=== PATIENT | female | born 1975 | race Caucasian/White ===

== ENCOUNTER 2017-11-19 13:58 | Observation (INO) ==
--- NOTE | 2017-11-19 14:26 | Emergency Department Note ---
ED Disposition Clinical Impression: Overweight Chest pain Qualifiers: Chest pain type: precordial pain Qualified Code(s): R07.2 - Precordial pain Disposition: Admitted as Observation Condition on Discharge: Good - Critical Care Critical Care Time: No Attestation: On 11/19/17, the high probability of a clinically significant, sudden or life threatening deterioration of the following system(s) required my full and direct attention, intervention and personal management. The time I documented below is in addition to time spent performing reported procedures but includes the following listed in this critical care notation. Medical Decision Making - Medical Records Medical records reviewed: Yes: I reviewed the patient's medical records. - Mickey Inquiry Pt receiving controlled substance: No Vital Signs: 11/19/17 13:58 Temperature 97.7 F Temperature Source Oral Pulse Rate [Right Brachial] 69 Respiratory Rate 20 Blood Pressure [Right Arm] 107/49 Blood Pressure Mean [Right Arm] 68 Blood Pressure Source [Right Arm] Automatic Cuff Blood Pressure Position [Right Arm] Sitting 02 Sat by Pulse Oximetry 95 Oxygen Delivery Method Room Air - Lab Data Lab results reviewed: Yes: I reviewed the patient's lab results. Lab Results 11/19/17 14:06: WBC 10.6, RBC 4.26, Hgb 13.9, Hct 36.7 L, MCV 86.3, MCH 32.7 H, MCHC 37.9 H, RDW 14.0, Plt Count 217, MPV 8.3, Neut % (Auto) 68.2, Lymph % (Auto ) 25.6, [place] % (Auto) 4.1, Eos % (Auto) 1.7, Baso % (Auto) 0.4, Neut # (Auto) 7.2, Lymph # (Auto) 2.7, [place] # (Auto) 0.4, Eos # (Auto) 0.2, Baso # (Auto) 0.0 11/19/17 14:06: Sodium 139, Potassium 3.9, Chloride 104, Carbon Dioxide 27, Anion Gap 11.9, BUN 12, Creatinine 0.74, Estimated Creat Clear 73, Estimated GFR 87, Est GFR ( Amer) 105, Glucose 88, Calcium 8.2 L, Troponin I < 0.02 Result diagrams: 11/19/17 14:06 11/19/17 14:06 - Radiology Data #1 Image(s): Chest Image Reviewed: Yes I reviewed the patient's radiology image Preliminary Findings: Normal/NAD - ECG Data Tracing #1 I reviewed this ECG and interpreted as documented below: Normal Sinus Rhythm: Yes Ischemic changes: non-specific ST-T wave changes - Physician Consults Physician Consulted: lacy Reason -: Admission Chest Pain HPI - General Chief Complaint: Chest Pain Stated Complaint: chest pain Time Seen by Provider: 11/19/17 14:00 Mode of Arrival: EMS Source of Information: Patient, Significant Other, EMS, Medical Record Limitations: No Limitations Description of Symptoms (Recalled from ER Triage Doc. by RN): Pt reports midsternal chest pain that began approx 1 hour UTILITY HAND. Pt reports became diaphoretic and nausea after pain began. Pt describes pain as feeling like a pressure in middle of her chest. Pt reports she has an appointment tomorrow to see her PCP r/t feeling tired and not having any energy recently - History of Present Illness HPI narrative: acute onset of chest tightness with rad to neck lasted for 1 hr and was new pain - had gxt about yr ago - pt with nausea and diaphoresis - brought by ems MD complaint: chest pain indicative of cardiac Onset (ago): hour(s) Duration: now resolved Activity at onset: during rest Pain location: epigastric Severity: moderate Quality: tightness Pain radiation: neck Associated symptoms: nausea, diaphoresis Risk Factors for CAD: Hypertension, Hypercholesterolemia, Family Hx of CAD, Smoking Treatments prior to or on arrival for Cardiac Chest Pain: aspirin - MORALES Score Non-Stemi Age of patient: Less than 65 yrs Number of risk factors for CAD: Presence of 3 or more Prior coronary artery stenosis(seen in coronary angiography): Less than 50% ST-Segment deviation on ECG (more than 1 min): Absent Prior aspirin intake: No ASA in the last 7 days Severe anginal chest pain: Two or more episodes in last 24 hours Elevated cardiac markers(CK-MB or troponin): Absent Non-Stemi Risk Score: 2 - Related Data Prior Cardiac Testing/Procedures: Stress Test On Oral Contraceptives: No Home Medications Medication Instructions Recorded Confirmed Atorvastatin Calcium [Atorvastatin 40 mg PO DAILY 11/19/17 11/19/17 40mg Tab] Cetirizine HCl [Allergy Relief] 10 mg PO DAILY 11/19/17 11/19/17 Divalproex Sodium 125 mg PO DAILY 11/19/17 11/19/17 Meloxicam 7.5 mg PO DAILY 11/19/17 11/19/17 Montelukast Sodium [Singulair 10mg 10 mg PO PM 11/19/17 11/19/17 tablet] clonazePAM [Klonopin 0.5mg tablet] 0.5 mg PO DAILY 11/19/17 11/19/17 risperiDONE [Risperidone] 0.5 mg PO DAILY 11/19/17 11/19/17 Allergies Allergy/AdvReac Type Severity Reaction Status Date / Time varenicline [From CHANTIX] Allergy Unknown Verified 11/19/17 14:03 [facility] History I have reviewed the patient's past medical history: Yes ROS Obtained: Yes All systems reviewed & no additional complaints - Constitutional Constitutional: Denies fever(s) - Eyes Eyes: Denies change in vision - ENT Ears, Nose, Mouth, and Throat: Denies sore throat - Cardiovascular Cardiovascular: Reports chest pain, Reports lightheadedness - Respiratory Respiratory: No cough - Gastrointestinal Gastrointestingal: Denies: abdominal pain - Genitourinary Female Genitourinary: Denies hematuria - Musculoskeletal Musculoskeletal: Denies joint pain, Denies joint swelling - Integumentary/Breasts Skin/Breast: Denies rash - Neurologic Neurologic: Denies seizure-like activity Physical Exam - General General appearance: alert, obese - Head Head exam: normocephalic - Eye Eye exam: Present: PERRL, EOMI - ENT ENT exam: Present: mucous membranes moist - Neck Neck exam: Present: trachea midline - Respiratory Respiratory exam: Present: normal lung sounds bilaterally. Absent: respiratory distress - Cardiovascular Cardiovascular exam: Present: regular rate, systolic murmur - Abdominal Exam Abdominal exam: Present: soft. Absent: tenderness - Extremities Exam Extremities exam: Absent: calf tenderness - Neurological Exam Neurological exam: Present: alert, oriented X3, CN II-XII intact - Psychiatric Psychiatric exam: Present: normal affect - Skin Skin exam: Absent: rash
[2017-11-19 14:30] LABS: Basophils % 0.4 % (0.1-2.0); Eosinophils # 0.2 K/mm3 (0.0-0.4); Eosinophils % 1.7 % (0.1-12.0); Hematocrit 36.7 % (37.0-47.0); Hemoglobin 13.9 g/dL (12.2-16.2); Lymphocytes # 2.7 K/mm3 (0.7-4.5); Lymphocytes % 25.6 K/mm3 (10-50); Mean Corpuscular HGB Conc 37.9 g/dL (31.8-35.4); Mean Corpuscular Hemoglobin 32.7 pg (27.0-31.2); Mean Corpuscular Volume 86.3 fl (81-99); Mean Platelet Volume 8.3 fl (7.4-10.4); Monocytes # 0.4 K/mm3 (0.1-1.0); Monocytes % 4.1 % (1.7-9.3); Neutrophils # 7.2 K/mm3 (1.8-7.8); Neutrophils % 68.2 % (37.0-80.0); Platelet Count 217 K/mm3 (142-424); Red Blood Count 4.26 M/mm3 (4.20-5.40); White Blood Count 10.6 K/mm3 (4.8-10.8)
[2017-11-19 14:31] LABS: Anion Gap 11.9 mEq/L (5-15); Blood Urea Nitrogen 12 mg/dL (7-18); Calcium 8.2 mg/dL (8.5-10.1); Carbon Dioxide 27 mmol/L (21.0-32.0); Chloride 104 mmol/L (98-107); Glucose 88 mg/dL (74-106); Sodium 139 mmol/L (136-145)
[2017-11-19 14:34] LABS: Potassium 3.9 mmoL/L (3.5-5.1)
--- NOTE | 2017-11-19 16:59 | History & Physical Report ---
*Admission Date: 11/19/17 *Chief complaint: Chest pain *History of present illness: 42-year-old white female, smoker with morbid obesity and hyperlipidemia with significant family history of coronary atherosclerosis and a personal history of what sounds like mitral valve prolapse, who presented to the emergency department this morning after walking to her house from her car and having the sudden onset of upper epigastric and lower chest pain that she said felt like a squeezing sensation accompanied by significant diaphoresis and nausea. She had shaking chills and sweats and a friend brought her to the emergency department. ER workup was essentially unremarkable with negative troponins but there were some EKG changes. Given her significant risk factors and family history was determined she would need serial enzymes and cardiology evaluation with probable left heart cath given her symptoms and probable complications with stress testing given her BMI of greater than 50. [facility] History I have reviewed the patient's past medical history: Yes Medical History: Reports:: Anxiety, Depression, Gastroesophageal Reflux Disease( GERD), Hyperlipidemia Denies:: Diabetes Mellitus Type 2 Comment: Mitral valve prolapse diagnosed by echocardiogram - *Social History Educational Level: Completed High School Tobacco Type: cigarettes Review of Systems - Review of Systems Review of systems:: pertinent systems reviewed and negative unless documented below - Constitutional Reports chills, Reports excessive sweating, Denies anorexia, Denies body ache(s) - Eyes Denies blind spots, Denies blurry vision, Denies change in vision - ENT Denies abnormal hearing, Denies bleeding gums - *Cardiovascular Reports chest pain, Reports chest pain at rest, Reports chest pain with activity , Reports excessive sweating, Reports shortness of breath, Reports shortness of breath with activity, Reports generalized swelling, Reports radiating jaw, neck or arm pain, Denies irregular heart rhythm, Denies leg swelling, Denies shortness of breath when lying down, Denies rapid, pounding, or irregular heartbeat, Denies shortness of breath causing sudden awakening - *Respiratory Denies change in phlegm color, Denies chest congestion, Denies cough - *Gastrointestinal Denies abdominal pain, Denies belching, Denies bloating - *Neurologic Denies seizure-like activity Meds Home Medications Medication Instructions Recorded Confirmed Type Atorvastatin Calcium [Atorvastatin 40 mg PO DAILY 11/19/17 11/19/17 History 40mg Tab] Cetirizine HCl [Allergy Relief] 10 mg PO DAILY 11/19/17 11/19/17 History Divalproex Sodium 125 mg PO DAILY 11/19/17 11/19/17 History Meloxicam 7.5 mg PO DAILY 11/19/17 11/19/17 History Montelukast Sodium [Singulair 10mg 10 mg PO PM 11/19/17 11/19/17 History tablet] clonazePAM [Klonopin 0.5mg tablet] 0.5 mg PO DAILY 11/19/17 11/19/17 History risperiDONE [Risperidone] 0.5 mg PO DAILY 11/19/17 11/19/17 History Allergies Allergy/AdvReac Type Severity Reaction Status Date / Time varenicline [From CHANTIX] Allergy Unknown Verified 11/19/17 14:03 Exam Vital signs and Labs for Last 24 Hours: Temp Pulse Resp BP Pulse Ox 98.1 F 68 18 101/52 95 11/19/17 16:20 11/19/17 16:20 11/19/17 16:20 11/19/17 16:20 11/19/17 16:07 Laboratory Results - last 24 hr 11/19/17 14:06: WBC 10.6, RBC 4.26, Hgb 13.9, Hct 36.7 L, MCV 86.3, MCH 32.7 H, MCHC 37.9 H, RDW 14.0, Plt Count 217, MPV 8.3, Neut % (Auto) 68.2, Lymph % (Auto ) 25.6, [place] % (Auto) 4.1, Eos % (Auto) 1.7, Baso % (Auto) 0.4, Neut # (Auto) 7.2, Lymph # (Auto) 2.7, [place] # (Auto) 0.4, Eos # (Auto) 0.2, Baso # (Auto) 0.0 11/19/17 14:06: Sodium 139, Potassium 3.9, Chloride 104, Carbon Dioxide 27, Anion Gap 11.9, BUN 12, Creatinine 0.74, Estimated Creat Clear 73, Estimated GFR 87, Est GFR ( Amer) 105, Glucose 88, Calcium 8.2 L, Troponin I < 0.02 I & O for Last 24 hours: Intake & Output 11/17/17 11/18/17 11/19/17 11/20/17 11:59 11:59 11:59 11:59 Weight 268 lb Narrative: Patient's pulse rate is regular, she has no ankle edema. Lungs are clear, heart rate is regular but her body habitus limits exam accuracy. She is in no distress, no JVD visible. Neurologic exam intact. H&P: Result - Labs Labs: Short CBC 11/19/17 Range/Units 14:06 WBC 10.6 (4.8-10.8) K/mm3 Hgb 13.9 (12.2-16.2) g/dL Hct 36.7 L (37.0-47.0) % Plt Count 217 (142-424) K/mm3 BMP 11/19/17 14:06 Sodium 139 Potassium 3.9 Chloride 104 Carbon Dioxide 27 BUN 12 Creatinine 0.74 Glucose 88 Calcium 8.2 L Cardiac Enzymes 11/19/17 Range/Units 14:06 Troponin I < 0.02 (0.00-0.06) ng/ml Assessment and Plan (1) Tobacco use disorder Current visit: Yes Status: Acute Category: Medical Code(s): F17.200 - Nicotine dependence, unspecified, uncomplicated (2) Hyperlipidemia Current visit: Yes Status: Acute Category: Medical Code(s): E78.5 - Hyperlipidemia, unspecified (3) Morbid obesity with BMI of 50.0-59.9, adult Current visit: Yes Status: Acute Category: Medical Code(s): E66.01 - Morbid (severe) obesity due to excess calories; Z68.43 - Body mass index (BMI) 50-59.9 , adult (4) Chest pain Current visit: Yes Status: Acute Qualifiers: Chest pain type: precordial pain Qualified Code(s): R07.2 - Precordial pain Category: Medical Code(s): R07.9 - Chest pain, unspecified Patient has fairly classic angina symptoms with multiple risk factors for cardiac disease. Agree with admission. Cardiology evaluation for left heart cath tomorrow morning.
[2017-11-20 06:29] LABS: Basophils % 0.4 % (0.1-2.0); Eosinophils # 0.2 K/mm3 (0.0-0.4); Eosinophils % 1.5 % (0.1-12.0); Hemoglobin 13.5 g/dL (12.2-16.2); Lymphocytes # 2.7 K/mm3 (0.7-4.5); Lymphocytes % 26.1 K/mm3 (10-50); Mean Corpuscular HGB Conc 31.3 g/dL (31.8-35.4); Mean Corpuscular Hemoglobin 27.2 pg (27.0-31.2); Mean Platelet Volume 7.6 fl (7.4-10.4); Monocytes # 0.5 K/mm3 (0.1-1.0); Monocytes % 4.7 % (1.7-9.3); Neutrophils # 7.1 K/mm3 (1.8-7.8); Neutrophils % 67.3 % (37.0-80.0); Platelet Count 235 K/mm3 (142-424); Red Blood Count 4.94 M/mm3 (4.20-5.40); Red Cell Distribution Width 13.8 % (11.5-17.5); White Blood Count 10.5 K/mm3 (4.8-10.8)
[2017-11-20 06:38] LABS: Chol/HDL Ratio 5.1 (1-3.5)
--- NOTE | 2017-11-20 07:27 | Pharmacy Consult Notes ---
[facility] Pharmacy VTE Monitoring - Patient Demographics Admission date: 11/19/17 Report Date: 11/20/17 Time: 07:26 Allergies/Adverse Reactions: Patient Allergies cat dander Allergy (Intermediate, Verified 11/19/17 18:00) Swelling of the Eye varenicline [From CHANTIX] Allergy (Unknown, Verified 11/19/17 14:03) Height: 1.52 m Weight: 129.331 kg Patient Problems: Current Active Problems Chest pain (Acute) Overweight (Acute) Tobacco use disorder (Acute) Hyperlipidemia (Acute) Morbid obesity with BMI of 50.0-59.9, adult (Acute) - VTE Risk Labs: VTE Related Lab Results Hgb 13.5 g/dL (12.2-16.2) 11/20/17 06:05 Hct 43.0 % (37.0-47.0) 11/20/17 06:05 Plt Count 235 K/mm3 (142-424) 11/20/17 06:05 BUN 9 mg/dL (7-18) 11/20/17 06:05 Creatinine 0.79 mg/dL (0.55-1.02) 11/20/17 06:05 Estimated Creat Clear 68 mL/min (0-300) 11/20/17 06:05 Was VTE Risk Assessment Performed: Yes VTE Score: 1 VTE Risk Level: Very Low Risk - Prophylaxis VTE Prophylaxis Ordered?: Yes Types of VTE Prophylaxis: TEDS Knee High Location of Applied Device: Bilateral Lower Extremeties - VTE Diagnosis Confirmed Treatment or plan recommended: Continue Current Treatment
--- NOTE | 2017-11-20 08:20 | Progress Note ---
Internal Medicine - PN: Subj *Date: 11/20/17 *Time: 08:19 Interval history: Patient slept well, had some twinges of pain overnight. Exam Vital signs and Labs for Last 24 Hours: Temp Pulse Resp BP Pulse Ox 98.5 F 64 18 107/60 95 11/20/17 07:39 11/20/17 07:39 11/20/17 07:39 11/20/17 07:39 11/20/17 07:39 Laboratory Results - last 24 hr 11/19/17 14:06: WBC 10.6, RBC 4.26, Hgb 13.9, Hct 36.7 L, MCV 86.3, MCH 32.7 H, MCHC 37.9 H, RDW 14.0, Plt Count 217, MPV 8.3, Neut % (Auto) 68.2, Lymph % (Auto ) 25.6, [place] % (Auto) 4.1, Eos % (Auto) 1.7, Baso % (Auto) 0.4, Neut # (Auto) 7.2, Lymph # (Auto) 2.7, [place] # (Auto) 0.4, Eos # (Auto) 0.2, Baso # (Auto) 0.0 11/19/17 14:06: Sodium 139, Potassium 3.9, Chloride 104, Carbon Dioxide 27, Anion Gap 11.9, BUN 12, Creatinine 0.74, Estimated Creat Clear 73, Estimated GFR 87, Est GFR ( Amer) 105, Glucose 88, Calcium 8.2 L, Troponin I < 0.02 11/19/17 16:30: Troponin I < 0.02 11/19/17 18:53: Troponin I < 0.02 11/19/17 21:55: Troponin I < 0.02 11/20/17 06:05: WBC 10.5, RBC 4.94, Hgb 13.5, Hct 43.0, MCV 87.0, MCH 27.2, MCHC 31.3 L, RDW 13.8, Plt Count 235, MPV 7.6, Neut % (Auto) 67.3, Lymph % (Auto ) 26.1, [place] % (Auto) 4.7, Eos % (Auto) 1.5, Baso % (Auto) 0.4, Neut # (Auto) 7.1, Lymph # (Auto) 2.7, [place] # (Auto) 0.5, Eos # (Auto) 0.2, Baso # (Auto) 0.0 11/20/17 06:05: Sodium 140, Potassium 4.0, Chloride 107, Carbon Dioxide 26, Anion Gap 11.0, BUN 9, Creatinine 0.79, Estimated Creat Clear 68, Estimated GFR 81, Est GFR ( Amer) 98, Glucose 108 H D, Calcium 8.0 L, Magnesium 1.8, Triglycerides 117, Cholesterol 147, LDL Cholesterol 95, VLDL Cholesterol 23, HDL Cholesterol 29, Cholesterol/HDL Ratio 5.1 H I & O for Last 24 hours: Intake & Output 11/17/17 11/18/17 11/19/17 11/20/17 11:59 11:59 11:59 11:59 Intake Total 1026 / 1026 Balance 1026 / 1026 Weight 285 lb 2 oz Narrative: Patient is pleasant, talkative. Heart rate regular. Lungs are well-expanded. Assessment and Plan (1) Tobacco use disorder Current visit: Yes Status: Acute Category: Medical Code(s): F17.200 - Nicotine dependence, unspecified, uncomplicated (2) Hyperlipidemia Current visit: Yes Status: Acute Category: Medical Code(s): E78.5 - Hyperlipidemia, unspecified (3) Morbid obesity with BMI of 50.0-59.9, adult Current visit: Yes Status: Acute Category: Medical Code(s): E66.01 - Morbid (severe) obesity due to excess calories; Z68.43 - Body mass index (BMI) 50-59.9 , adult (4) Chest pain Current visit: Yes Status: Acute Qualifiers: Chest pain type: precordial pain Qualified Code(s): R07.2 - Precordial pain Category: Medical Code(s): R07.9 - Chest pain, unspecified - Assessment and plan all Dx Assessment and Plan for all problems:: Stable. Cardiology evaluation today.
--- NOTE | 2017-11-20 12:42 | Consult Report ---
History of Present Illness Consult date: 11/20/17 Consult reason: chest pain Chief complaint: Chest pain and nausea Additional Medical History:: 1. Chest tightness with exertion a. Associated with diaphoretic and nausea b. Radiation to the left jaw, lasting for one hour 2. Hypertension a. Currently is not taking anti-hypertensive medication. b. Blood pressure stable at this time. 3. Tobacco Dependence a. Smokes 1ppd for 10+ years 4. Morbidly Obese a. BMI >50. 5. Hyperlipidemia a. LDL 95 (11/21/2017) b. Currently taking Atorvastatin 40mg daily 6. Significant family history of Coronary Artery Disease a. Mother (living) CAD, HLD, HTN b. Father (unknown) 7. History of Mitral Valve Prolapse a. Pending echocardiogram performed 8. Anxiety a. Experiences paniac attacks. History of present illness: 42 year old white female presented to the Emergency department on 11/19/2017 for chest tightness. Pt stated while she was walking from her home to the car, she started feeling a chest tightness midsternal radiating to her left jaw. These chest tightness was accompanied with diaphoretic and nausea. Pt stated this episode lasted for one hour. Pt admitted to have anxiety and panic attacks but felt this episode was different. Pt denied dizziness or palpitations. Pt stated that she had been evaluated in the past for chest pain via a diver assistant at [facility] ([place], [place]). Last evaluated was 1.5 years. Pt was unable to remember testing performed at that time. Initial EKG (ER) revealed Normal sinus rhythm, cannot rule out Anterior infarct , abnormal EKG with heart rate of 72bpm. Initial baseline labs were unremarkable. Serial enzymes were also obtained and negative. Chest xray performed revealed negative and no acute findings. Pt was admitted to floor for cardiology consult. Cardiology consult: Due to pt's chest tightness with exertion and history of hypertension, hyperlipidemia and obesity (along with strong family history of CAD) performing a left catheterization was discussed. Discussed with pt the risk and benefits of left heart catheterization with right wrist access. This catheterization would be performed by Dr. Ybarra. Pt was agreeable. Pt scheduled for left heart catheterization this am. Echocardiogram will also be obtained to assess LV function and valve status, especially to assess MVP. Left heart catheterization was performed: ANGIOGRAPHIC RESULTS: 1. The left main artery normal 2. The left anterior descending artery normal 3. The circumflex artery normal 4. The right coronary artery dominant normal 5. The MASSEY ventriculogram reveals normal 65% 6. The left ventricular end-diastolic pressure elevated 25 mmHg IMPRESSION: 1. Normal coronary arteries 2. Normal ejection fraction 3. Moderately elevated LVEDP consistent with diastolic dysfunction PLAN: 1. Risk factor modification 2. Diuretics in order to decrease LVEDP which is likely accounting for patient's angina pectoris Echocardiogram is pending at this time. [facility] History Medical History: Reports:: Anxiety, Depression, Gastroesophageal Reflux Disease( GERD), Hyperlipidemia, Hypertension Denies:: Cancer, Diabetes Mellitus Type 1, Diabetes Mellitus Type 2, MRSA Other Surgeries: Yes: Cholecystectomy, Hernia Repair, Tubal Ligation Amputation: No - *Social History Educational Level: Completed High School Smoking Status: Current every day smoker Tobacco Type: cigarettes # Packs/Day (cigarettes): 2 Alcohol Intake: current Alcohol Intake Frequency:: holidays/special occasions only Occupational Status: unemployed Housing: house Household Members: children - Psychiatric History Expresses thoughts of harming self/others: None Suicide Plan Description: No Plan Pschychiatric History:: Reports:: Anxiety, Depression *Family Hx:: Cancer, Diabetes, Hyperlipidemia, Hypertension, Kidney Disease, Stroke Meds Home Medications Medication Instructions Recorded Confirmed Type Atorvastatin Calcium [Atorvastatin 40 mg PO DAILY 11/19/17 11/19/17 History 40mg Tab] Cetirizine HCl [Allergy Relief] 10 mg PO DAILY 11/19/17 11/19/17 History Divalproex Sodium 125 mg PO BID 11/19/17 11/20/17 History Meloxicam 7.5 mg PO DAILY 11/19/17 11/19/17 History Montelukast Sodium [Singulair 10mg 10 mg PO HS 11/19/17 11/20/17 History tablet] clonazePAM [Klonopin 0.5mg tablet] 0.5 mg PO DAILY 11/19/17 11/19/17 History risperiDONE [Risperidone] 0.5 mg PO HS 11/19/17 11/20/17 History Albuterol Sulfate [Albuterol HFA 2 puffs INHALATION Q6HP PRN 11/20/17 11/20/17 History Inhaler] Benzonatate [Benzonatate 200mg Cap] 200 mg PO TIDP PRN 11/20/17 11/20/17 History Buspirone HCl [Buspar 10mg tablet] 10 mg PO BID 11/20/17 11/20/17 History Allergies Allergy/AdvReac Type Severity Reaction Status Date / Time cat dander Allergy Intermediate Swelling Verified 11/19/17 18:00 of the Eye varenicline [From CHANTIX] Allergy Unknown Verified 11/19/17 14:03 Review of Systems - Review of Systems Review of systems:: pertinent systems reviewed and negative unless documented below - Constitutional Reports excessive sweating, Reports fatigue, Reports lack of energy - *Cardiovascular Reports chest pain, Reports chest pain with activity, Reports excessive sweating , Reports shortness of breath with activity, Reports generalized swelling, Reports leg swelling, Reports radiating jaw, neck or arm pain - *Respiratory Reports shortness of breath, Denies cough, Denies wheezing - *Gastrointestinal Denies abdominal pain, Denies constipation - *Musculoskeletal Denies abnormal walking, Denies muscle weakness - *Neurologic Denies abnormal hearing, Denies seizure-like activity, Denies dizziness - Psychiatric Reports anxiety, Reports panic attacks Exam Vital signs and Labs for Last 24 Hours: Temp Pulse Resp BP Pulse Ox 97.0 F L 67 18 115/65 97 11/20/17 11:45 11/20/17 12:00 11/20/17 12:00 11/20/17 12:00 11/20/17 12:00 Laboratory Results - last 24 hr 11/19/17 14:06: WBC 10.6, RBC 4.26, Hgb 13.9, Hct 36.7 L, MCV 86.3, MCH 32.7 H, MCHC 37.9 H, RDW 14.0, Plt Count 217, MPV 8.3, Neut % (Auto) 68.2, Lymph % (Auto ) 25.6, [place] % (Auto) 4.1, Eos % (Auto) 1.7, Baso % (Auto) 0.4, Neut # (Auto) 7.2, Lymph # (Auto) 2.7, [place] # (Auto) 0.4, Eos # (Auto) 0.2, Baso # (Auto) 0.0 11/19/17 14:06: Sodium 139, Potassium 3.9, Chloride 104, Carbon Dioxide 27, Anion Gap 11.9, BUN 12, Creatinine 0.74, Estimated Creat Clear 73, Estimated GFR 87, Est GFR ( Amer) 105, Glucose 88, Calcium 8.2 L, Troponin I < 0.02 11/19/17 16:30: Troponin I < 0.02 11/19/17 18:53: Troponin I < 0.02 11/19/17 21:55: Troponin I < 0.02 11/20/17 06:05: WBC 10.5, RBC 4.94, Hgb 13.5, Hct 43.0, MCV 87.0, MCH 27.2, MCHC 31.3 L, RDW 13.8, Plt Count 235, MPV 7.6, Neut % (Auto) 67.3, Lymph % (Auto ) 26.1, [place] % (Auto) 4.7, Eos % (Auto) 1.5, Baso % (Auto) 0.4, Neut # (Auto) 7.1, Lymph # (Auto) 2.7, [place] # (Auto) 0.5, Eos # (Auto) 0.2, Baso # (Auto) 0.0 11/20/17 06:05: Sodium 140, Potassium 4.0, Chloride 107, Carbon Dioxide 26, Anion Gap 11.0, BUN 9, Creatinine 0.79, Estimated Creat Clear 68, Estimated GFR 81, Est GFR ( Amer) 98, Glucose 108 H D, Calcium 8.0 L, Magnesium 1.8, Triglycerides 117, Cholesterol 147, LDL Cholesterol 95, VLDL Cholesterol 23, HDL Cholesterol 29, Cholesterol/HDL Ratio 5.1 H I & O for Last 24 hours: Intake & Output 11/17/17 11/18/17 11/19/17 11/20/17 23:59 23:59 23:59 23:59 Intake Total 567 / 567 459 / 459 Balance 567 / 567 459 / 459 Weight 280 lb 285 lb 2 oz - Constitutional no acute distress, morbidly obese - *Routine HEENT Exam Head: Present: normocephalic Eye: Present: PERRL, normal accommodation ENT: Present: mucous membranes moist - *Routine Neck Exam Present: supple, full ROM, normal carotid upstroke, trachea midline. Absent: JVD, carotid bruit, lymphadenopathy, tenderness, swelling - Routine Chest/Breast/Axilla Exam Chest wall: Absent: tenderness, mass, pacemaker - *Routine Respiratory Exam Present: accessory muscle use. Absent: CTA bilaterally, respiratory distress, wheezes, crackles - *Routine Cardiovascular Exam Present: RRR, Normal S1, Normal S2. Absent: murmur, gallop, rubs, irregular rhythm, JVD - *Routine Abdominal Exam Present: soft, normoactive bowel sounds. Absent: tenderness - *Routine Extremities Exam Present: edema, full ROM, pulses intact, normal capillary refill. Absent: cyanosis, calf tenderness, extremity cold to touch - Routine Back/Spine/Pelvis Exam Back/Spine: Present: full ROM - *Routine Skin Exam Present: intact, dry, warm. Absent: cyanosis, erythema, pallor, mottling, lesions - *Routine Neurological Exam Present: alert, oriented X3, CN II-XII intact, moving all extremities, normal speech. Absent: abnormal gait - Routine Psychiatric Exam Present: normal affect, normal thought process Assessment and Plan (1) Tobacco use disorder Current visit: Yes Status: Acute Category: Medical Code(s): F17.200 - Nicotine dependence, unspecified, uncomplicated (2) Hyperlipidemia Current visit: Yes Status: Acute Category: Medical Code(s): E78.5 - Hyperlipidemia, unspecified (3) Morbid obesity with BMI of 50.0-59.9, adult Current visit: Yes Status: Acute Category: Medical Code(s): E66.01 - Morbid (severe) obesity due to excess calories; Z68.43 - Body mass index (BMI) 50-59.9 , adult (4) Chest pain Current visit: Yes Status: Acute Qualifiers: Chest pain type: precordial pain Qualified Code(s): R07.2 - Precordial pain Category: Medical Code(s): R07.9 - Chest pain, unspecified - Assessment and plan all Dx Assessment and Plan for all problems:: Plan: 1. Agreeable to left heart catheterization. LHC performed. Normal Coronaries. Moderate LVEDP 25. Diastolic dysfunction. 2. Obtain Echocardiogram to assess for LV function and valve status. 3. Add Lasix 20mg one tablet daily for elevated LVEDP. 4. Add Aldactone 25mg one tablet daily for diastolic dysfunction. 5. Add Aspirin 81mg daily for medication regimen. 6. Tobacco cessation advised and recommended. 7. Have BMP drawn in one week for renal status. 8. Cardiology clinic follow in one week or sooner if symptoms persist.
--- NOTE | 2017-11-20 12:50 | Discharge Summary ---
General - General Admission date:: 11/19/17 Discharge date: 11/20/17 HPI HPI: 42-year-old white female, smoker with morbid obesity and hyperlipidemia with significant family history of coronary atherosclerosis and a personal history of what sounds like mitral valve prolapse, who presented to the emergency department this morning after walking to her house from her car and having the sudden onset of upper epigastric and lower chest pain that she said felt like a squeezing sensation accompanied by significant diaphoresis and nausea. She had shaking chills and sweats and a friend brought her to the emergency department. ER workup was essentially unremarkable with negative troponins but there were some EKG changes. Given her significant risk factors and family history was determined she would need serial enzymes and cardiology evaluation with probable left heart cath given her symptoms and probable complications with stress testing given her BMI of greater than 50. Hospital Course Hospital Course: Patient was admitted, ruled out for myocardial infarction and subjected to left heart catheterization, please see this report for details, basically patient had clean coronaries but elevated LV end-diastolic pressure and it was recommended that she be subjected to diuresis. She will be discharged home on Lasix, she will be followed up by her physician. Risk factor modification and diet for cholesterol lowering was recommended. Objective Vital signs: Temp Pulse Resp BP Pulse Ox 97.0 F L 67 18 115/65 97 11/20/17 11:45 11/20/17 12:00 11/20/17 12:00 11/20/17 12:00 11/20/17 12:00 Narrative: Please see my progress note from this morning Results Labs on day of discharge: Labs from last 24 hours 11/20/17 11/20/17 11/19/17 06:05 06:05 21:55 WBC 10.5 RBC 4.94 Hgb 13.5 Hct 43.0 MCV 87.0 MCH 27.2 MCHC 31.3 L RDW 13.8 Plt Count 235 MPV 7.6 Neut % (Auto) 67.3 Lymph % (Auto) 26.1 [place] % (Auto) 4.7 Eos % (Auto) 1.5 Baso % (Auto) 0.4 Neut # (Auto) 7.1 Lymph # (Auto) 2.7 [place] # (Auto) 0.5 Eos # (Auto) 0.2 Baso # (Auto) 0.0 Sodium 140 Potassium 4.0 Chloride 107 Carbon Dioxide 26 Anion Gap 11.0 BUN 9 Creatinine 0.79 Estimated Creat Clear 68 Estimated GFR 81 Est GFR ( Amer) 98 Glucose 108 H D Calcium 8.0 L Magnesium 1.8 Troponin I < 0.02 Triglycerides 117 Cholesterol 147 LDL Cholesterol 95 VLDL Cholesterol 23 HDL Cholesterol 29 Cholesterol/HDL Ratio 5.1 H 11/19/17 11/19/17 11/19/17 18:53 16:30 14:06 WBC RBC Hgb Hct MCV MCH MCHC RDW Plt Count MPV Neut % (Auto) Lymph % (Auto) [place] % (Auto) Eos % (Auto) Baso % (Auto) Neut # (Auto) Lymph # (Auto) [place] # (Auto) Eos # (Auto) Baso # (Auto) Sodium 139 Potassium 3.9 Chloride 104 Carbon Dioxide 27 Anion Gap 11.9 BUN 12 Creatinine 0.74 Estimated Creat Clear 73 Estimated GFR 87 Est GFR ( Amer) 105 Glucose 88 Calcium 8.2 L Magnesium Troponin I < 0.02 < 0.02 < 0.02 Triglycerides Cholesterol LDL Cholesterol VLDL Cholesterol HDL Cholesterol Cholesterol/HDL Ratio 11/19/17 14:06 WBC 10.6 RBC 4.26 Hgb 13.9 Hct 36.7 L MCV 86.3 MCH 32.7 H MCHC 37.9 H RDW 14.0 Plt Count 217 MPV 8.3 Neut % (Auto) 68.2 Lymph % (Auto) 25.6 [place] % (Auto) 4.1 Eos % (Auto) 1.7 Baso % (Auto) 0.4 Neut # (Auto) 7.2 Lymph # (Auto) 2.7 [place] # (Auto) 0.4 Eos # (Auto) 0.2 Baso # (Auto) 0.0 Sodium Potassium Chloride Carbon Dioxide Anion Gap BUN Creatinine Estimated Creat Clear Estimated GFR Est GFR ( Amer) Glucose Calcium Magnesium Troponin I Triglycerides Cholesterol LDL Cholesterol VLDL Cholesterol HDL Cholesterol Cholesterol/HDL Ratio DS: Diagnosis - Discharge Diagnosis (1) Tobacco use disorder Status: Acute (2) Hyperlipidemia Status: Acute (3) Morbid obesity with BMI of 50.0-59.9, adult Status: Acute (4) Chest pain Status: Acute Discharge Plan - Patient Discharge Instructions ACTIVITY: Continue current activity DIET: low fat, low cholesterol - Follow up Plan Unknown provider or service follow up:: 11/20/17 12:48 Primary physician in 1 or 2 weeks Disposition: Home, Self-Retirement Medications: Home Medications Medication Instructions Recorded Confirmed Type Atorvastatin Calcium [Atorvastatin 40 mg PO DAILY 11/19/17 11/19/17 History 40mg Tab] Cetirizine HCl [Allergy Relief] 10 mg PO DAILY 11/19/17 11/19/17 History Divalproex Sodium 125 mg PO BID 11/19/17 11/20/17 History Meloxicam 7.5 mg PO DAILY 11/19/17 11/19/17 History Montelukast Sodium [Singulair 10mg 10 mg PO HS 11/19/17 11/20/17 History tablet] clonazePAM [Klonopin 0.5mg tablet] 0.5 mg PO DAILY 11/19/17 11/19/17 History risperiDONE [Risperidone] 0.5 mg PO HS 11/19/17 11/20/17 History Albuterol Sulfate [Albuterol HFA 2 puffs INHALATION Q6HP PRN 11/20/17 11/20/17 History Inhaler] Benzonatate [Benzonatate 200mg Cap] 200 mg PO TIDP PRN 11/20/17 11/20/17 History Buspirone HCl [Buspar 10mg tablet] 10 mg PO BID 11/20/17 11/20/17 History Prescriptions/Medication Reconciliation: New Furosemide [Lasix 20mg tab] 20 mg PO DAILY #30 tab Continue Montelukast Sodium [Singulair 10mg tablet] 10 mg PO HS risperiDONE [Risperidone] 0.5 mg PO HS Meloxicam 7.5 mg PO DAILY Divalproex Sodium 125 mg PO BID clonazePAM [Klonopin 0.5mg tablet] 0.5 mg PO DAILY Cetirizine HCl [Allergy Relief] 10 mg PO DAILY Atorvastatin Calcium [Atorvastatin 40mg Tab] 40 mg PO DAILY Buspirone HCl [Buspar 10mg tablet] 10 mg PO BID Benzonatate [Benzonatate 200mg Cap] 200 mg PO TIDP PRN PRN Reason: Cough Albuterol Sulfate [Albuterol HFA Inhaler] 2 puffs INHALATION Q6HP PRN PRN Reason: Shortness Of Breath
--- NOTE | 2017-11-20 20:32 | Cardiology Report ---
PROCEDURE: 2-D M-mode and color Doppler study INDICATIONS FOR THE TEST: Chest pain + COPD Heart Murmur Tobacco Smoking+ Palpitations Fatigue Syncope Edema+ Hypertension Diabetes Mellitus Rheumatic Fever SOB+VELASCO Obesity+Hyperlipidemia+ Family History HD Additional History PATIENT INFORMATION HEIGHT: 60 WEIGHT:268 GENDER: Female B/P:101/52 2-D/M-MODE INTERPRETATION: 2-D MEASUREMENTS OBSERVED VALUES IN CMS Right Ventricular Dimension (RVDd) 2.3 Interventricular Septum (Thickness)(IVsd) 1.6 Left Ventricular Internal Dimensions(LVIDd) 4.4 Left Ventricular Posterior Wall (Thickness)(LVPWd) 0.8 Aortic Root 3.1 Aortic Cusp Separation 2.0 Left Atrial Dimensions (LAD) 4.3 2D 1. Left atrium is mildly enlarged, left ventricle is normal size, there is mild concentric left ventricular hypertrophy, visually estimated ejection fraction 55% with no obvious regional wall motion abnormality. 2. The right atrium and right ventricle are relatively normal size and function. 3. The aortic, mitral and tricuspid valvular grossly normal. 4. The pulmonic valve is poorly visualized 5. No significant pericardial effusion noted. DOPPLER INTERROGATION: Doppler interrogation of the aortic, mitral and tricuspid presence of mild mitral and tricuspid regurgitation, tricuspid and jet velocity insufficient for calculation of the right ventricular systolic pressure, diastolic parameters are normal. CONCLUSION: 1. Mildly enlarged left atrium, normal left ventricular size, mild concentric left ventricular hypertrophy, visually estimated ejection fraction 55% with no obvious regional wall motion abnormality, diastolic parameters are within normal range. 2. Mild mitral and tricuspid regurgitation 3. No significant pericardial effusion noted.
== END 2017-11-20 18:11 | disposition home or self-care (01) ==
LOC: ER 13:58 → 2ND 13:58
PROVIDERS: ADMIT Internal Medicine Adolescent Medicine; ATTEND Internal Medicine Adolescent Medicine

== ENCOUNTER 2020-02-19 09:13 | Emergency (ER) | payer OTHER, SELFPAY ==
[2020-02-19 09:17] VITALS: BP 119/74; PULSE 87; RESP 18; TEMP 37.2; O2SAT 98; BMI 51.1
[2020-02-19 09:22] VITALS: BP 119/74; PULSE 87; RESP 16; TEMP 36.8; O2SAT 98; BMI 51.0
--- NOTE | 2020-02-19 09:56 | HMH.EDUTC ---
[facility] [place] Impression: Abscess Cellulitis Qualifiers: Site of cellulitis: other site Qualified Code(s): L03.818 - Cellulitis of other sites Disposition: Home, Self-Care Condition on Discharge: Good Instructions: Cellulitis Additional Instructions: *Start antibiotic(s) immediately and be sure to take as ordered for the FULL length of time although you may be feeling better or start to see improvement in the next 24-48 hours *Monitor closely. Outlined redness so that you can monitor easier. Follow up immediately for new or worsening symptoms including but not limited to redness, swelling, streaking from site fever or chills. *Warm compress 15 minutes 3-4 times day *Never squeeze or pop these on your own. Seek immediate medical attention next time this occurs *Monitor Temp. Tylenol every 4 hours as needed and ibuprofen every 6 hours as needed (as long as your primary care doctor has told you that it is ok to take both. For fever, aches, pain. ER if no less that 101 despite Tylenol and ibuprofen Follow up with your family doctor/primary care physician in the next 48-72 hours if no improvement Straight to ER if any worsening of symptoms or area Follow up with Dr Pruitt on Monday in the office at 1pm as scheduled Prescriptions: clindamycin HCL [Clindamycin HCl 300mg Cap] 300 mg PO Q6 10 Days #40 cap Transmission Status: Received by [facility]/pharmacy #[id number] Referrals: Jake De La Cruz [Primary Care Provider] - As needed Ash Pruitt MD [Staff Physician] - 02/21/20 1:00 pm Time of Disposition: 10:06 Medical Decision Making - Mickey Inquiry Pt receiving controlled substance: No Mickey was queried for this patient: No Vital Signs: 02/19/20 09:17 02/19/20 09:22 02/19/20 10:33 Temperature 98.9 F 98.2 F 98.2 F Temperature Source Oral Oral Oral Pulse Rate 70 Pulse Rate [Left Radial] 87 87 Respiratory Rate 18 16 16 Blood Pressure 120/70 Blood Pressure [Right Arm] 119/74 119/74 Blood Pressure Mean [Right Arm] 89 89 Blood Pressure Source Automatic Cuff Blood Pressure Source [Right Arm] Automatic Cuff Automatic Cuff Blood Pressure Position Sitting Blood Pressure Position [Right Arm] Sitting Sitting 02 Sat by Pulse Oximetry 98 98 Oxygen Delivery Method Room Air Room Air Room Air - Physician Consults Physician Consulted: Edmond Time: 10:00 Reason -: Surgical Eval/Care Comment/Response: Spoke with BJ in Dr Malone office and informed her of finding on right lower abdomen and need to be evaluated by Surgical, Patient was given appointment for 1pm on Monday for further evalation and treatment Medical Decision Narrative: Discussed with patient to immediately go straight to ED if any worsening of redness or spreading of cellulitis patient agreed [facility] [place] - General Stated complaint: sore spot on stomach, getting worse Time Seen by Provider: 02/19/20 09:56 Mode of Arrival: Ambulatory Source of Information: Patient Limitations: No Limitations Description of Symptoms (Recalled from Triage Doc. by RN): c/o redness right lower abdomen from bug bite on Monday HEENT Symptoms (Recalled from RN notes): No Resp Symptoms (Recalled from RN notes): No Skin Symptoms (Recalled from RN notes): Yes (bug bite on abd) MS Symptoms (Recalled from RN notes): No Functional Status (Recalled from RN notes): na - History of Present Illness Provider Complaint: Patient states that she thinks she was bitten by a spider on monday and had a small pimple like area on her right lower abdomen States that yesterday she smashed it and now it is getting larger and feels hard in the middle States that she called her PCP and they told she needed to come in and get on antibiotics - Related Data Home Medications Medication Instructions Recorded Confirmed Divalproex Sodium 125 mg PO BID 11/19/17 12/15/19 Previous Rx's Medication Instructions Recorded cloNIDine HCL [cloNIDine 0.1mg 0.1 mg PO TID #30 tab 02/28/19 Tablet] alb
[2020-02-19 10:33] VITALS: BP 120/70; PULSE 70; RESP 16; TEMP 36.8; O2SAT 98
== END 2020-02-19 10:34 | disposition home or self-care (01) ==
LOC: ER 09:18 → UTC 09:18
PROVIDERS: Emergency Provider Nurse Practitioner; PCP Family Medicine
DX: L02.211 Cutaneous abscess of abdominal wall (principal); F41.8 Other specified anxiety disorders; K21.9 Gastro-esophageal reflux disease without esophagitis; I10 Essential (primary) hypertension; E78.5 Hyperlipidemia, unspecified; F17.210 Nicotine dependence, cigarettes, uncomplicated; Z88.8 Allergy status to other drugs, medicaments and biological substances
CPT/HCPCS: 99201

== ENCOUNTER 2020-02-21 16:01 | Observation (INO) | payer OTHER, SELFPAY ==
[2020-02-21] VITALS (22 sets, daily range): BP systolic 105–137; BP diastolic 58–86; PULSE 50–77; RESP 16–18; TEMP 36.1–36.7; O2SAT 90–99; BMI 50.8; BMI 55.7
[2020-02-21 14:18] LABS: Urine Pregnancy, HCG Qual. Negative (Negative)
[2020-02-21 14:20] LABS: Basophils % 0.3 % (0.1-2.0); Chloride 103 mmol/L (98-107); Eosinophils # 0.2 K/mm3 (0.0-0.4); Eosinophils % 1.3 % (0.1-12.0); Hematocrit 43.5 % (37.0-47.0); Hemoglobin 14.7 g/dL (12.2-16.2); Lymphocytes # 3.1 K/mm3 (0.7-4.5); Lymphocytes % 23.9 % (10-50); Mean Corpuscular HGB Conc 33.9 g/dL (31.8-35.4); Mean Corpuscular Volume 85.6 fl (81-99); Mean Platelet Volume 7.9 fl (7.4-10.4); Monocytes # 0.5 K/mm3 (0.1-1.0); Monocytes % 4.1 % (1.7-9.3); Neutrophils # 9.2 K/mm3 (1.8-7.8); Neutrophils % 70.4 % (37.0-80.0); Platelet Count 260 K/mm3 (142-424); Red Blood Count 5.09 M/mm3 (4.20-5.40); Red Cell Distribution Width 14.9 % (11.5-17.5); Sodium 139 mmol/L (136-145)
[2020-02-21 14:24] LABS: Blood Urea Nitrogen 8 mg/dl (7-17); Carbon Dioxide 28 mmol/L (22.0-30.0); Creatinine Clearance Estimated 66 mL/min (50-200); Estimated Glomerular Filt Rate 79 ml/min (>60); GFR (African American) 95 ML/MIN (>60); Glucose 94 mg/dl (74-100)
[2020-02-21 14:46] LABS: Coronavirus 19 IgG Antibody Negative (Negative); Coronavirus 19 IgM Antibody Negative (Negative)
--- NOTE | 2020-02-21 15:16 | P.OP_ITS ---
Date of procedure: 02/21/20 Pre-op Diagnosis:: Soft tissue infection with abscess formation of the right lower abdominal wall Post-op Diagnosis:: Same Procedure performed:: Incision and drainage of complex abdominal wall abscess with debridement of skin and subcutaneous tissue Surgeon:: Ash Pruitt MD CALENDAR CONTROL CLERK BLOOD BANK:: Micheal Goldberg Anesthesia: LMA Estimated blood loss (mL): 15 Clinical Note:: Patient is a 44-year-old female who had developed a focal area on the right lower abdomen from [place] consistent with spider or insect bite beginning on 02/17/2020. This became progressively more severe She was diagnosed with cellulitis and started on oral and she presented to the emergency department on 02/19/2020. She was diagnosed with cellulitis and started on clindamycin. She was referred for surgical consultation. She has had progressive pain. She states that the area continues to enlarge. She was seen as an outpatient consultation and found to have an area approximately 27 x 10 cm of intense cellulitis in the right abdominal wall skin area. There was central induration. Is markedly tender. She has some central fluctuance. Plan was made for emergent incision and drainage and debridement with admission. Operative findings:: Findings consistent with focal necrotizing cellulitis with abscess formation and surrounding extensive cellulitis. Operative note:: Patient was taken to the operating room. She was given preoperative intravenous vancomycin. In the operating room she was placed in a supine position. General anesthesia was induced via LMA. There is a central punctate area of mild fluctuance. Limited incision was made circumferentially around this with electrocautery. There was thick pus which exuded from the underlying tissues. This was sent for aerobic and anaerobic culture. This tissue was excised and sent as debrided tissue. Wound was probed. The wound tracked laterally and medially for quite some distance. Overlying tissues were opened using electrocautery. Underlying subcutaneous tissues were relatively healthy except for focally around the area of the fluctuance. Hemostasis was achieved with electrocautery. Wound was thoroughly irrigated. Local anesthetic had been infiltrated. Wound was packed with a saline moistened Kerlix gauze and covered with clean dry sterile dressing. Condition: stable Disposition: PACU Complications:: None immediately apparent
--- NOTE | 2020-02-21 15:25 | HMH.ANESCL ---
[facility] Anesthesia Checklist - Patient Identification Patient Identification: Arm Band - Structural Data Admitted From: Home Planned Operative Procedure/s: I&D Right Abdominal Wall Abscess Consent for Planned Operative Procedure(s) Verified: Yes Verified Documents: Surgical Consent, History and Physical - NPO Status Verified Time NPO: 07:30 (coffee) - Additional verifications Anesthesia Reactions: No Hx Blood Transfusions: No Blood Transfusion Reaction: No - Airway Assessment C-Spine Mobility Assessed: Yes (mp2) TMJ Mobility Assessed: Yes Dentition: Edentulous - Neurological Assessment Level of Consciousness: Awake, Alert - Anesthesia Plan Anesthesia Risk discussed: Yes Anesthesia Plan: Verified ASA Class: III Anesthesia Type: General [facility] History I have reviewed the patient's past medical history: Yes Medical History: Reports:: Anxiety, Depression, Gastroesophageal Reflux Disease(GERD), Hyperlipidemia, Hypertension Denies:: Cancer, Diabetes Mellitus Type 1, Diabetes Mellitus Type 2, MRSA, Seizures *Have you ever received a pneumonia vaccine?: No *Have you received a flu vaccine this season?: No Other Medical History: Denies: Blood Transfusion Reaction Anesthesia experience/problems:: nac Other Surgeries: Yes: Cardiac Catheterization, Cholecystectomy, Hernia Repair, Tubal Ligation Amputation: No Fractures: Yes (tailbone) - *Social History Last grade of school completed: High school graduate Smoking Status: Current every day smoker Tobacco Type: cigarettes # Packs/Day (cigarettes): 1 Alcohol Intake: never Alcohol Intake Frequency:: holidays/special occasions only Substance Use Type: denies use *Occupational Status:: employed Housing: house Household Members: children *Travel in the last 8 weeks: None - Psychiatric History Pschychiatric History:: Reports:: Anxiety, Depression Family Hx:: Cancer, Diabetes, Hyperlipidemia, Hypertension, Kidney Disease, Stroke
--- NOTE | 2020-02-21 15:26 | HMH.ANESI ---
[facility] Anesthesia Record Part I Intake, IV Amount: 600 Estimated blood loss (mL): 10 Urine output (mL): 0 Blood Pressure: 137/65 SaO2: 93 Pulse Rate: 73 Respiratory Rate: 16 Temperature: 97 F Patient is:: Drowsy, Stable Stable to PACU at:: 15:20
--- NOTE | 2020-02-21 15:49 | PC.NURSE ---
received report from Gerri Martinez RN
--- NOTE | 2020-02-21 16:00 | PC.NURSE ---
Pt arrived to the floor. VSS. Post op vitals started. Dressing noted to RLQ. Dressing CDI. Pain rated 7/10. Percocet administered. No nausea reported. Vancomycin and LR infusing. Will start zosyn when vancomycin complete. Bed in lowest position. Call light within reach. VSS. Will continue to monitor.
--- NOTE | 2020-02-21 16:07 | PC.NURSE ---
[id number]-detailed report called to KatieRN [id number]-pt transported to med surg room 208 via hospital bed w/cass rails up and left in care of GRAEME Wilson with bed locked in lowest position, vss, pt stable family at bedside
--- NOTE | 2020-02-21 16:11 | P.CONPHA_ITS ---
- Pharmacy Consult Date: 02/21/20 Time: 16:11 Referring provider: DR. MARTINEZ Reason for Consult:: VANCOMYCIN DOSING Allergies and ADEs:: Allergies Allergy/AdvReac Type Severity Reaction Status Date / Time cat dander Allergy Intermediate Swelling Verified 02/21/20 13:53 of the Eye varenicline [From CHANTIX] Allergy Unknown Verified 02/21/20 13:53 Home Medications:: Home Medications Medication Instructions Recorded Confirmed Type clindamycin HCL [Clindamycin HCl 300 mg PO Q6 02/21/20 02/21/20 History 300mg Cap] Height: 1.52 m Weight: 117.934 kg Laboratory Results:: Laboratory Results - last 24 hr 02/21/20 13:47: Urine HCG, Qual Negative 02/21/20 13:55: WBC 13.0 H, RBC 5.09, Hgb 14.7, Hct 43.5, MCV 85.6, MCH 29.0, MCHC 33.9, RDW 14.9, Plt Count 260, MPV 7.9, Neut % (Auto) 70.4, Lymph % (Auto) 23.9, [place] % (Auto) 4.1, Eos % (Auto) 1.3, Baso % (Auto) 0.3, Neut # (Auto) 9.2 H, Lymph # (Auto) 3.1, [place] # (Auto) 0.5, Eos # (Auto) 0.2, Baso # (Auto) 0.0 02/21/20 13:55: Sodium 139, Potassium 4.0, Chloride 103, Carbon Dioxide 28, Anion Gap 12.0, BUN 8, Creatinine 0.80, Estimated Creat Clear 66, Estimated GFR 79, Est GFR ( Amer) 95, Glucose 94, Calcium 9.0 02/21/20 13:55: SARS-CoV-2 IgG Ab (Rapid) Negative, SARS-CoV-2 IgM Ab (Rapid) Negative Medical History: Reports:: Anxiety, Depression, Gastroesophageal Reflux Disease(GERD), Hyperlipidemia, Hypertension Denies:: Cancer, Diabetes Mellitus Type 1, Diabetes Mellitus Type 2, MRSA, Seizures Assessment and Plan - Assessment and plan all Dx Assessment and Plan for all problems:: Patient: Floor: Age: 44 yo Serum creatinine: 0.8 mg/dL Height: 59.8 Inches Weight (kg): 118 IBW (kg): 45.35 Dosing wt(kg): 118 Estimated Creatinine clearance (ml/min): 65.6 Drug selected: Vancomycin Loading dose (mg): 0 Vd (liters): 94.4 (factor used: 0.8 L/kg) Venu (hr-1): 0.059 Half life (hrs): 11.75 Recommended dose: 1750 mg Interval: 12 hrs Infusion time (hrs): 2.0 Predicted peak (mcg/mL): 34.5 Predicted trough (mcg/mL): 19.12 Total body weight is being used for vancomycin dosing. Recommendations: Give Vancomycin 1750 mg q 12 hrs with an expected Cpeak of 34.5 mcg/ml and an expected Ctrough of 19.12 mcg/ml Renal dosing of other antibiotics (review renal dosing of other medications and list guidelines here): CAUTION WITH ZOSYN USE. Thank you for the consult, will continue to follow. Signature:
--- NOTE | 2020-02-21 17:52 | P.PN_ITS ---
[facility] Anesthesia Record Part II Discharge Time: 15:50 Destination: Medical Surgical Department PACU nurse assessment reviewed?: Yes Patient Condition:: Good Anesthesia Complications:: None Swallowing reflex intact?: Yes Cyanosis?: No Blood Pressure: 130/83 Pulse Rate: 69 Temperature: 98 F Mental Status: Alert & Oriented Pain level:: 0 Nausea and/or vomitting:: Nauseated Intake, IV Amount: 0
--- NOTE | 2020-02-21 19:12 | PC.NURSE ---
report given to zach
--- NOTE | 2020-02-22 03:45 | PC.NURSE ---
Pt has slept at intervals. Has c/o discomfort x1 this shift. Medicated per jul. DSG to abdomen has remained C/D/I. Will change this AM. Pt HR was noted to bradycardic this shift as low as 50. Pt remained asymptomatic. Pt states that it is normal for her. She also told staff, My BP will also drop while sleeping . Pt's BP has remained within normal limits. She has remained afebrile. Lungs are CTA. BS active. No other concerns at this time. Will continue to monitor.
[2020-02-22 04:00] VITALS: BP 112/59; PULSE 50; RESP 16; TEMP 36.3; O2SAT 95
[2020-02-22 05:17] VITALS: BMI 56.5
[2020-02-22 07:42] LABS: Basophils % 0.2 % (0.1-2.0); Eosinophils # 0.1 K/mm3 (0.0-0.4); Eosinophils % 0.6 % (0.1-12.0); Hemoglobin 14.6 g/dL (12.2-16.2); Lymphocytes % 12.5 % (10-50); Mean Corpuscular HGB Conc 33.9 g/dL (31.8-35.4); Mean Corpuscular Hemoglobin 29.2 pg (27.0-31.2); Mean Platelet Volume 7.9 fl (7.4-10.4); Monocytes # 0.4 K/mm3 (0.1-1.0); Monocytes % 2.7 % (1.7-9.3); Neutrophils # 13.5 K/mm3 (1.8-7.8); Neutrophils % 84.1 % (37.0-80.0); Platelet Count 258 K/mm3 (142-424); Red Blood Count 4.99 M/mm3 (4.20-5.40); Red Cell Distribution Width 14.5 % (11.5-17.5); White Blood Count 16.1 K/mm3 (4.8-10.8)
[2020-02-22 07:45] LABS: MANUAL DIFFERENTIAL MANUAL DIFFERENTIAL (MANUAL DIFF)
[2020-02-22 08:00] VITALS: BP 108/76; PULSE 61; RESP 18; TEMP 36.7; O2SAT 97
[2020-02-22 08:36] LABS: Lymphocytes % 10 % (10-50); Monocytes % 3 % (2-9); Neutrophils % 87 % (42-76); Total Cells Counted 100
[2020-02-22 08:37] LABS: Platelet Estimate Normal; RBC Morphology Normal
--- NOTE | 2020-02-22 09:16 | P.CONPHA_ITS ---
[facility] Pharmacy VTE Monitoring - Patient Demographics Admission date: 02/21/20 Report Date: 02/22/20 Time: 09:16 Allergies/Adverse Reactions: Patient Allergies cat dander Allergy (Intermediate, Verified 02/21/20 13:53) Swelling of the Eye varenicline [From CHANTIX] Allergy (Unknown, Verified 02/21/20 13:53) Height: 1.52 m Weight: 130.663 kg - VTE Risk Labs: VTE Related Lab Results Hgb 14.6 g/dL (12.2-16.2) 02/22/20 07:25 Hct 43.0 % (37.0-47.0) 02/22/20 07:25 Plt Count 258 K/mm3 (142-424) 02/22/20 07:25 BUN 8 mg/dl (7-17) 02/21/20 13:55 Creatinine 0.80 mg/dl (0.52-1.04) 02/21/20 13:55 Estimated Creat Clear 66 mL/min (50-200) 02/21/20 13:55 Was VTE Risk Assessment Performed: Yes VTE Score: 5 VTE Risk Level: Low Risk - Prophylaxis VTE Prophylaxis Ordered?: Yes Types of VTE Prophylaxis: TEDS Knee High Location of Applied Device: Bilateral Lower Extremeties
--- NOTE | 2020-02-22 09:17 | P.PN_ITS ---
Subjective Narrative: Patient states that the area feels somewhat better. She did tolerate a dressing change this morning. Progress Note: A&P Assessment and Plan for All Diagnoses:: Continue dressing changes and broad-spectrum antibiotics at this time. Currently on vancomycin and Zosyn. Await cultures. Monitor soft tissue infection. Exam Vital signs and Labs for Last 24 Hours: Temp Pulse Resp BP Pulse Ox 98.1 F 61 18 108/76 L 97 02/22/20 08:00 02/22/20 08:00 02/22/20 08:00 02/22/20 08:00 02/22/20 08:00 Laboratory Results - last 24 hr 02/21/20 13:47: Urine HCG, Qual Negative 02/21/20 13:55: WBC 13.0 H, RBC 5.09, Hgb 14.7, Hct 43.5, MCV 85.6, MCH 29.0, MCHC 33.9, RDW 14.9, Plt Count 260, MPV 7.9, Neut % (Auto) 70.4, Lymph % (Auto) 23.9, [place] % (Auto) 4.1, Eos % (Auto) 1.3, Baso % (Auto) 0.3, Neut # (Auto) 9.2 H, Lymph # (Auto) 3.1, [place] # (Auto) 0.5, Eos # (Auto) 0.2, Baso # (Auto) 0.0 02/21/20 13:55: Sodium 139, Potassium 4.0, Chloride 103, Carbon Dioxide 28, Anion Gap 12.0, BUN 8, Creatinine 0.80, Estimated Creat Clear 66, Estimated GFR 79, Est GFR ( Amer) 95, Glucose 94, Calcium 9.0 02/21/20 13:55: SARS-CoV-2 IgG Ab (Rapid) Negative, SARS-CoV-2 IgM Ab (Rapid) Negative 02/22/20 07:25: WBC 16.1 H, RBC 4.99, Hgb 14.6, Hct 43.0, MCV 86.0, MCH 29.2, MCHC 33.9, RDW 14.5, Plt Count 258, MPV 7.9, Neut % (Auto) 84.1 H, Lymph % (Auto) 12.5, [place] % (Auto) 2.7, Eos % (Auto) 0.6, Baso % (Auto) 0.2, Neut # (Auto) 13.5 H, Lymph # (Auto) 2.0, [place] # (Auto) 0.4, Eos # (Auto) 0.1, Baso # (Auto) 0.0, Total Counted 100, Neutrophils % (Manual) 87 H, Lymphocytes % (Manual) 10, Monocytes % (Manual) 3, Platelet Estimate Normal, RBC Morphology Normal I & O for Last 24 hours: Intake & Output 02/19/20 02/20/20 02/21/20 02/22/20 11:59 11:59 11:59 11:59 Intake Total 1661 / 1661 Output Total 1100 / 1100 Balance 561 / 561 Weight 288 lb 1 oz Microbiology Reports for the Last 24 Hours: Microbiology 02/21/20 14:59 Abdomen Gram Stain - Final 02/21/20 14:59 Abdomen Abscess Culture - Preliminary Gram Positive Cocci - *Routine Skin Exam Comments: Wound is clean. Persistent induration and erythema with mild edema around the wound.
[2020-02-22 11:40] VITALS: BP 106/62; PULSE 55; RESP 19; TEMP 36.7; O2SAT 94
[2020-02-22 15:11] VITALS: BP 103/66; PULSE 63; RESP 17; TEMP 36.7; O2SAT 97
[2020-02-22 19:39] LABS: Vancomycin,Trough 11.2 ug/mL (5.0-10.0)
[2020-02-22 20:05] VITALS: BP 108/65; PULSE 65; RESP 19; TEMP 36.6; O2SAT 97
--- NOTE | 2020-02-23 03:05 | PC.NURSE ---
A&OX3. SEED ANALYSIS LABORATORY ASSISTANT EQUAL BILAT. LUNGS NOTED CLEAR T/O AUSCULTATION. INCENTIVE SPIROMETER USED Q1HWA. TOLERATED RA WELL. PULSES +2, CAP REFILL <3SEC. TRACE EDEMA NOTED TO BLE. ABDOMEN NONDISTENDED, ACTIVE BOWEL SOUNDS IN ALL QUADS, SOFT AND NONTENDER PER PALPATION. DRESSING NOTED TO RIGHT LOWER QUAD OF ABDOMEN, CDI. DRESSING CHANGE WILL OCCUR AROUND [id number] ON THIS SHIFT. DAY SHIFT CHANGED DRESSING AROUND 1800 PER REPORT. C/O PAIN AT RIGHT LOWER QUAD ABDOMINAL INCISION SITE AND MEDICATED PER JUL WITH PRN PO PAIN MEDICATIONS, ON REASSESSMENT PT WAS NOTED IN BED RESTING WITH EYES CLOSED. PLAN HAS BEEN MADE TO GIVE PAIN MEDICATION PRIOR TO DRESSING CHANGE FOR PAIN CONTROL. TOLERABLE PAIN LEVEL ESTABLISHED TO KEEP <5/10 ON 0-10 FLATWORK FEEDER. VSS. WILL CONTINUE TO MONITOR.
[2020-02-23 04:00] VITALS: BP 100/59; PULSE 64; RESP 20; TEMP 36.9; O2SAT 98
[2020-02-23 05:21] VITALS: BMI 57.6
--- NOTE | 2020-02-23 05:30 | PC.NURSE ---
DRESSING CHANGED AT 0513 AND TOLERATED WELL, ON REASSESSMENT AROUND 0530 PT WAS NOTING IN BED RESTING WITH EYES CLOSED.
--- NOTE | 2020-02-23 06:13 | PC.NURSE ---
PT REPORTED 2 LARGE, BROWN, SOFT BM'S THIS SHIFT, UNWITNESSED PER STAFF.
[2020-02-23 07:44] VITALS: BP 119/67; PULSE 65; RESP 19; TEMP 36.9; O2SAT 98
--- NOTE | 2020-02-23 08:49 | HMH.GSPN ---
Subjective Narrative: Patient is tolerating dressing changes with pain medication. Cultures returned MRSA. Progress Note: A&P Assessment and Plan for All Diagnoses:: DC Zosyn based on cultures. Continue IV vancomycin. Continue wound care. Recheck CBC tomorrow morning. If continues to improve possible discharge tomorrow with outpatient dressing changes and likely oral Zyvox. Exam Vital signs and Labs for Last 24 Hours: Temp Pulse Resp BP Pulse Ox 98.4 F 65 19 119/67 98 02/23/20 07:44 02/23/20 07:44 02/23/20 07:44 02/23/20 07:44 02/23/20 07:44 Laboratory Results - last 24 hr 02/22/20 18:58: Vancomycin Trough 11.2 H I & O for Last 24 hours: Intake & Output 02/20/20 02/21/20 02/22/20 02/23/20 11:59 11:59 11:59 11:59 Intake Total 1661 / 1661 4607 / 4607 Output Total 1100 / 1100 1000 / 1000 Balance 561 / 561 3607 / 3607 Weight 288 lb 1 oz 293 lb 8 oz Microbiology Reports for the Last 24 Hours: Microbiology 02/21/20 14:59 Abdomen Gram Stain - Final 02/21/20 14:59 Abdomen Abscess Culture - Preliminary Staphylococcus aureus - *Routine Skin Exam Comments: Decreasing edema and erythema.
--- NOTE | 2020-02-23 13:09 | HMH.PHACONS ---
- Pharmacy Consult Date: 02/23/20 Time: 13:09 Referring provider: DR. MARTINEZ Reason for Consult:: VANCOMYCIN TROUGH LEVEL Allergies and ADEs:: Allergies Allergy/AdvReac Type Severity Reaction Status Date / Time cat dander Allergy Intermediate Swelling Verified 02/21/20 13:53 of the Eye varenicline [From CHANTIX] Allergy Unknown Verified 02/21/20 13:53 Home Medications:: Home Medications Medication Instructions Recorded Confirmed Type clindamycin HCL [Clindamycin HCl 300 mg PO Q6 02/21/20 02/21/20 History 300mg Cap] Height: 1.52 m Weight: 133.129 kg Laboratory Results:: Laboratory Results - last 24 hr 02/22/20 18:58: Vancomycin Trough 11.2 H Medical History: Reports:: Anxiety, Depression, Gastroesophageal Reflux Disease(GERD), Hyperlipidemia, Hypertension Denies:: Cancer, Diabetes Mellitus Type 1, Diabetes Mellitus Type 2, MRSA, Seizures Assessment and Plan - Assessment and plan all Dx Assessment and Plan for all problems:: BASED ON PATIENT FACTORS AND VANCOMYCIN TROUGH LEVEL, RECOMMEND CONTINUING VANCOMYCIN 1750 MG IV Q12H. PHARMACY WILL CONTINUE TO MONITOR DAILY AND ADJUST APPROPRIATE.
[2020-02-23 15:07] VITALS: BP 130/70; PULSE 65; RESP 17; TEMP 36.6; O2SAT 99
--- NOTE | 2020-02-23 15:16 | PC.NURSE ---
PATIENT A&O X4, LUNGS CLEAR, PULSES EQUAL. PATIENT EXPERIENCED SOME NAUSEA THIS AFTERNOON, THIS RN ADMINISTERED APPROPRIATE MEDICATION. PATIENT STATED THAT SHE IS STARTING TO EXPERIENCE LOOSE STOOLS. THIS RN PAGED DR. JUAN MD PHONED THIS RN BACK AND ORDERED PROBIOTICS. NO CONCERNS AT THIS TIME. RN EDUCATED THE PATIENT IN THE IMPORTANCE OF PAIN CONTROL. PATIENT DOES NOT LIKE TO TAKE PAIN MEDICATION. THIS RN EXPLAINED THE LONGER SHE WAITS TO CALL FOR PAIN MEDICATION THE HARDER IT WILL BE TO GET HER PAIN UNDER CONTROL. PATIENT VERBALIZED AN UNDERSTANDING.
[2020-02-23 20:00] VITALS: BP 102/67; PULSE 64; RESP 18; TEMP 36.6; O2SAT 96
--- NOTE | 2020-02-24 03:48 | PC.NURSE ---
Pt is alert and oriented x4. Rested well with eyes closed this shift. No acute changes noted from previous shift. PERRLA. Bilateral hand concrete gun operator noted equal and strong. Cap refill < 3 seconds. Bilateral breath sounds noted clear t/o upon auscultation. Tolerated RA well with no c/o SOA. RR noted even and unlabored. Abdomen noted soft, round and tender upon palpation to the right lower quad. Active bowel sounds noted in all 4 quads. Minimal pain reported when asked t/o shift. Tolerates independent amb well in room. No edema. Adequate urine output noted. Urine noted clear and bright yellow in color. Refused TEDS. VSS. Call light within reach. Remains safe. Will continue to monitor.
[2020-02-24 04:00] VITALS: BP 94/58; PULSE 67; RESP 18; TEMP 36.6; O2SAT 97
[2020-02-24 05:12] VITALS: BMI 58.6
[2020-02-24 06:44] LABS: Basophils % 0.3 % (0.1-2.0); Eosinophils # 0.2 K/mm3 (0.0-0.4); Hematocrit 40.2 % (37.0-47.0); Hemoglobin 13.5 g/dL (12.2-16.2); Lymphocytes % 28.9 % (10-50); Mean Corpuscular HGB Conc 33.7 g/dL (31.8-35.4); Mean Corpuscular Hemoglobin 29.3 pg (27.0-31.2); Mean Platelet Volume 7.7 fl (7.4-10.4); Monocytes # 0.6 K/mm3 (0.1-1.0); Monocytes % 6.1 % (1.7-9.3); Neutrophils # 6.4 K/mm3 (1.8-7.8); Neutrophils % 62.7 % (37.0-80.0); Platelet Count 288 K/mm3 (142-424); Red Blood Count 4.62 M/mm3 (4.20-5.40); Red Cell Distribution Width 14.9 % (11.5-17.5); White Blood Count 10.2 K/mm3 (4.8-10.8)
[2020-02-24 06:50] LABS: Chloride 105 mmol/L (98-107); Potassium 4.1 mmoL/L (3.5-5.1); Sodium 141 mmol/L (136-145)
[2020-02-24 06:53] LABS: Blood Urea Nitrogen 10 mg/dl (7-17); Creatinine Clearance Estimated 50 mL/min (50-200); Estimated Glomerular Filt Rate 61 ml/min (>60); GFR (African American) 74 ML/MIN (>60)
[2020-02-24 06:54] LABS: Anion Gap 10.1 mEq/L (5-15); Calcium 9.1 mg/dl (8.4-10.2); Carbon Dioxide 30 mmol/L (22.0-30.0); Glucose 91 mg/dl (74-100)
--- NOTE | 2020-02-24 07:11 | P.PN_ITS ---
Subjective Narrative: Patient feels better. She has had some looser stools but not diarrhea. She was started on probiotics. SHe is tolerating dressing changes. Progress Note: A&P Assessment and Plan for All Diagnoses:: Probable discharge home today with continued outpatient care. Will need at least once daily wet-to-dry saline dressing changes. This may be able to be done through the family. Will need outpatient Zyvox for approximately 10 days. Exam Vital signs and Labs for Last 24 Hours: Temp Pulse Resp BP Pulse Ox 97.8 F 67 18 94/58 L 97 02/24/20 04:00 02/24/20 04:00 02/24/20 04:00 02/24/20 04:00 02/24/20 04:00 Laboratory Results - last 24 hr 02/24/20 06:32: WBC 10.2 D, RBC 4.62, Hgb 13.5, Hct 40.2, MCV 87.0, MCH 29.3, MCHC 33.7, RDW 14.9, Plt Count 288, MPV 7.7, Neut % (Auto) 62.7, Lymph % (Auto) 28.9, [place] % (Auto) 6.1, Eos % (Auto) 2.0, Baso % (Auto) 0.3, Neut # (Auto) 6.4, Lymph # (Auto) 3.0, [place] # (Auto) 0.6, Eos # (Auto) 0.2, Baso # (Auto) 0.0 02/24/20 06:32: Sodium 141, Potassium 4.1, Chloride 105, Carbon Dioxide 30, Anion Gap 10.1, BUN 10, Creatinine 1.00 D, Estimated Creat Clear 50, Estimated GFR 61, Est GFR ( Amer) 74 D, Glucose 91, Calcium 9.1 I & O for Last 24 hours: Intake & Output 02/21/20 02/22/20 02/23/20 02/24/20 11:59 11:59 11:59 11:59 Intake Total 1661 / 1661 4607 / 4607 2184 / 2184 Output Total 1100 / 1100 1000 / 1000 2700 / 2700 Balance 561 / 561 3607 / 3607 -516 / -516 Weight 288 lb 1 oz 293 lb 8 oz 298 lb 11.2 oz Microbiology Reports for the Last 24 Hours: Microbiology 02/21/20 14:59 Abdomen Gram Stain - Final 02/21/20 14:59 Abdomen Abscess Culture - Final Staphylococcus aureus - *Routine Abdominal Exam Comments: Improving cellulitis and erythema. Mild induration
[2020-02-24 08:00] VITALS: BP 100/64; PULSE 68; RESP 16; TEMP 36.5; O2SAT 96
--- NOTE | 2020-02-24 08:46 | SW/DCPLANNER ---
Addendum entered by Krystina Myles 02/24/20 11:53: Layla has stated that patient information was reviewed and services will begin tomorrow for this patient. Addendum entered by Krystina Myles 02/24/20 10:33: Layla with [facility] is currently reviewing patients information. Original Note: I have spoke with this patient regarding discharge plans. I have informed patient that she will need daily dressing changes. I explained that she could return to [facility] daily for dressing changes or return home with home health for dressing changes but must have someone that can be taught the days that home health could not complete dressing changes. Patient stated that transportation to [facility] daily would be an issue and she would prefer to return home with home health. Patient stated that she would have someone that could be taught and complete dressing changes when HH is not present. Patient did not have a preference as to which home health agency. [facility] does NOT accept patients insurance. Patient information has been faxed to [facility]. I will follow up with [facility] once patient information/order is reviewed. Patient will discharge home later today.
[2020-02-24 10:47] LABS: Hemoglobin A1C 5.6 % (4.0-6.0)
[2020-02-24 11:27] VITALS: BMI 58.4
--- NOTE | 2020-02-24 11:34 | HMH.DCSUM ---
General - General Admission date:: 02/21/20 Discharge date: 02/24/20 HPI HPI: Patient had presented to the office as an outpatient referral for abdominal wall abscess. She had been seen in the urgent treatment center and started on clindamycin. When she was seen and evaluated in the office she had very extensive cellulitis measuring approximately 27 cm by about 10 or 12 cm with induration. Given the degree of her soft tissue infection plan was made for urgent operative intervention and admission. Hospital Course Hospital Course: Patient was taken to the operating room at which time she underwent incision and drainage and debridement of skin and subcutaneous tissue. Cultures were obtained of subcutaneous abscess. Cultures ultimately grew MRSA. Postoperatively she was admitted and placed on Zosyn and vancomycin pending the cultures. Her admission white blood cell count was 13,000. The following day it was 16,000. She had only slight improvement in the erythema on postoperative day #1. However, she felt much better and was tolerating wet-to-dry dressings twice daily. By postop day #2 she had shown significant improvement in the cellulitis. Her cultures returned at that time as MRSA. Zosyn was discontinued. The following day much of the erythema and cellulitis had resolved with only some minor induration. White blood cell count had normalized. Arrangements were made for discharge home at this time. Given the degree of the MRSA soft tissue infection she is placed on 10-day course of Zyvox. She is given some hydrocodone for dressing changes. Dressing changes and wound care will be arranged through home health and through family. She is going to follow-up in 1 week. Objective Vital signs: Temp Pulse Resp BP Pulse Ox 97.7 F 68 16 100/64 L 96 02/24/20 08:00 02/24/20 08:00 02/24/20 08:00 02/24/20 08:00 02/24/20 08:00 Results Labs on day of discharge: Labs from last 24 hours 02/24/20 02/24/20 02/24/20 06:32 06:32 06:32 WBC 10.2 D RBC 4.62 Hgb 13.5 Hct 40.2 MCV 87.0 MCH 29.3 MCHC 33.7 RDW 14.9 Plt Count 288 MPV 7.7 Neut % (Auto) 62.7 Lymph % (Auto) 28.9 [place] % (Auto) 6.1 Eos % (Auto) 2.0 Baso % (Auto) 0.3 Neut # (Auto) 6.4 Lymph # (Auto) 3.0 [place] # (Auto) 0.6 Eos # (Auto) 0.2 Baso # (Auto) 0.0 Sodium 141 Potassium 4.1 Chloride 105 Carbon Dioxide 30 Anion Gap 10.1 BUN 10 Creatinine 1.00 D Estimated Creat Clear 50 Estimated GFR 61 Est GFR ( Amer) 74 D Glucose 91 Hemoglobin A1c 5.6 Calcium 9.1 Discharge Plan - Patient Discharge Instructions ACTIVITY: Continue current activity DIET: advance to your usual diet Additional Instructions: Wet-to-dry saline dressings twice a day Patient Instructions: How to Care for a Surgical Wound, Methicillin-Resistant Staph Infection, DI for Abdominal Pain-Adult, DI for Surgical Site Infection, DI for Multiple Drug-resistant Organism (MDRO) Infection - Follow up Plan Follow up with: Ash Pruitt MD [Staff Physician] - 1 week Disposition: Home, Self-Jail Medications: Home Medications Medication Instructions Recorded Confirmed Type clindamycin HCL [Clindamycin HCl 300 mg PO Q6 02/21/20 02/21/20 History 300mg Cap] Hydrocod/Acet 5/325 mg [[place] 1 - 2 tab PO Q6HP PRN #21 tab 02/24/20 Rx 5/325mg tablet] Linezolid [Zyvox 600mg Tablet] 600 mg PO BID #20 tab 02/24/20 Rx Prescriptions/Medication Reconciliation: New Hydrocod/Acet 5/325 mg [[place] 5/325mg tablet] 1 - 2 tab PO Q6HP PRN #21 tab PRN Reason: Moderate Pain Linezolid [Zyvox 600mg Tablet] 600 mg PO BID #20 tab Discontinued clindamycin HCL [Clindamycin HCl 300mg Cap] 300 mg PO Q6 - Problem Reconciliation Problems Reviewed?: Yes
== END 2020-02-24 12:58 | disposition home health service (06) ==
PROVIDERS: Admitting Provider Surgery; PCP Family Medicine; Visit Provider Surgery
PROC: (CPT 10061; principal; 2020-02-21 14:30)
DX: L02.211 Cutaneous abscess of abdominal wall (principal); T63.301A Toxic effect of unspecified spider venom, accidental (unintentional), initial encounter; B95.62 Methicillin resistant Staphylococcus aureus infection as the cause of diseases classified elsewhere
CPT/HCPCS: 10061; 36415; 80048; 80202; 81025; 83036; 85007; 85025; 86328; 87070; 87075; 87077; 87186; 87205; 96374; G0378; J2405; J2543; J3370

== ENCOUNTER 2020-09-10 14:28 | Emergency (ER) | payer OTHER, SELFPAY ==
[2020-09-10 14:29] VITALS: BP 150/97; PULSE 89; RESP 16; TEMP 36.8; O2SAT 98; BMI 53.2
[2020-09-10 14:53] VITALS: BP 137/90; PULSE 76; RESP 20; TEMP 36.7; O2SAT 99; BMI 54.2
--- NOTE | 2020-09-10 14:54 | XR_ITS ---
PROCEDURE: XR ANKLE LT MIN 3V CLINICAL INDICATION: PAIN COMPARISON: CR FTL3 FOOT-LT-3 VIEWS from 08/30/2016 FINDINGS: No fracture or dislocation. No lytic or blastic change. There is normal mineralization. The joint spaces are well-preserved. No significant degenerative/arthritic changes. No erosive changes evident. Other findings:Type 2 os navicularis noted IMPRESSION: No acute findings. Dictated by: Timothy Sun MD 09/10/2020 15:34 Timothy Sun MD in [place] 09/10/2020 15:34
--- NOTE | 2020-09-10 15:29 | HMH.EDUTC ---
[facility] [place] Disposition Clinical Impression: Left ankle sprain Qualifiers: Encounter type: initial encounter Involved ligament of ankle: unspecified ligament Qualified Code(s): S93.402A - Sprain of unspecified ligament of left ankle, initial encounter Sprain of left foot Qualifiers: Encounter type: initial encounter Qualified Code(s): S93.602A - Unspecified sprain of left foot, initial encounter Disposition: Home, Self-Care Condition on Discharge: Good Instructions: Ankle Sprain, DI for Ankle Sprain Additional Instructions: Rest the extremity, apply ice for 15 minutes as tolerated three or four times per day, Elevate the extremity as tolerated while you are resting. Take ibuprofen for pain. I sent in a prescription to your pharmacy. Follow up with Dr. Wilhelm (podiatry). Sometimes there can be fractures that don't show up well on the first set of x-rays. So, you should follow up if you continue to have symptoms. I put in a referral but you need to call her office and schedule an appointment. Follow up with your regular doctor. GO TO THE ER FOR ANY WORSENING SYMPTOMS Prescriptions: Ibuprofen [Ibuprofen 600mg Tablet] 600 mg PO Q6HP PRN #30 tab PRN Reason: Mild Pain Transmission Status: Re[id number] Referrals: Jake De La Cruz [Primary Care Provider] - Socorro Wilhelm DPM [Staff Physician] - Forms: Work/School Release Time of Disposition: 16:01 Medical Decision Making - Medical Records Medical records reviewed: No: I reviewed the patient's medical records. - Mickey Inquiry Pt receiving controlled substance: No Vital Signs: 09/10/20 14:29 09/10/20 14:53 09/10/20 16:08 Temperature 98.2 F 98.0 F 98.4 F Temperature Source Oral Oral Oral Pulse Rate 76 Pulse Rate [Radial] 89 76 Respiratory Rate 16 20 20 Blood Pressure 137/90 Blood Pressure [Right Arm] 150/97 H 137/90 Blood Pressure Mean [Right Arm] 114 105 Blood Pressure Position [Right Arm] Sitting 02 Sat by Pulse Oximetry 98 99 Oxygen Delivery Method Room Air Room Air Room Air [facility] [place] HPI - General Stated complaint: [id number] left ankle,home accident Time Seen by Provider: 09/10/20 15:29 Mode of Arrival: Ambulatory Source of Information: Patient Limitations: No Limitations Description of Symptoms (Recalled from Triage Doc. by RN): left ankle pain, stood up and felt like it twisted HEENT Symptoms (Recalled from RN notes): No Resp Symptoms (Recalled from RN notes): No Skin Symptoms (Recalled from RN notes): No MS Symptoms (Recalled from RN notes): No Functional Status (Recalled from RN notes): na - History of Present Illness Provider Complaint: She c/o left ankle and foot pain since twisting it this morning. She states that when she bears weight or tries to walk on the foot the pain is much worse. - Related Data Previous Rx's Medication Instructions Recorded Ibuprofen [Ibuprofen 600mg 600 mg PO Q6HP PRN #30 tab 09/10/20 Tablet] Allergies Allergy/AdvReac Type Severity Reaction Status Date / Time cat dander Allergy Intermediate Swelling Verified 04/10/20 09:27 of the Eye varenicline [From CHANTIX] Allergy Unknown Verified 04/10/20 09:27 - Worker's Comp Is this a Worker's Comp case?: No [facility] History - Hepatitis A Screen Drug use history?: No High risk sexual behaviors?: No History of sexually transmitted infection?: No Currently employed?: No Childcare worker?: No Do you have indoor plumbing?: Yes Do you have electricity?: Yes Attestation statement:: This patient has been screened for Hepatitis A risk factors. I have reviewed the patient's past medical history: Yes Medical History: Reports:: Anxiety, Depression, Gastroesophageal Reflux Disease(GERD), Hyperlipidemia, Hypertension Denies:: Cancer, Diabetes Mellitus Type 1, Diabetes Mellitus Type 2, MRSA, Seizures Other Medical History: Denies: Blood Transfusion Reaction Comment: Mitral valve prolapse diagnosed by echocardiogram
[2020-09-10 16:08] VITALS: BP 137/90; PULSE 76; RESP 20; TEMP 36.9; O2SAT 99
== END 2020-09-10 16:09 | disposition home or self-care (01) ==
LOC: ER 14:41 → UTC 14:42
PROVIDERS: Emergency Provider Nurse Practitioner Family; PCP Family Medicine
DX: S93.402A Sprain of unspecified ligament of left ankle, initial encounter (principal); S93.602A Unspecified sprain of left foot, initial encounter; X50.1XXA Overexertion from prolonged static or awkward postures, initial encounter; Y92.019 Unspecified place in single-family (private) house as the place of occurrence of the external cause; F41.8 Other specified anxiety disorders; K21.9 Gastro-esophageal reflux disease without esophagitis; E78.5 Hyperlipidemia, unspecified; I10 Essential (primary) hypertension; F17.210 Nicotine dependence, cigarettes, uncomplicated
CPT/HCPCS: 73610; 99202; G0463

== ENCOUNTER 2020-11-08 13:45 | Emergency (ER) | payer OTHER, SELFPAY ==
[2020-11-08 13:45] VITALS: BP 88/51; PULSE 84; RESP 16; TEMP 37.3; O2SAT 96; BMI 58.0
[2020-11-08 14:37] LABS: Basophils % 0.5 % (0.1-2.0); Eosinophils # 0.2 K/mm3 (0.0-0.4); Eosinophils % 2.7 % (0.1-12.0); Hematocrit 43.7 % (37.0-47.0); Hemoglobin 14.6 g/dL (12.2-16.2); Lymphocytes # 1.6 K/mm3 (0.7-4.5); Lymphocytes % 27.1 % (10-50); Mean Corpuscular HGB Conc 33.5 g/dL (31.8-35.4); Mean Corpuscular Hemoglobin 27.7 pg (27.0-31.2); Mean Corpuscular Volume 82.7 fl (81-99); Mean Platelet Volume 7.4 fl (7.4-10.4); Monocytes # 0.4 K/mm3 (0.1-1.0); Monocytes % 7.4 % (1.7-9.3); Neutrophils # 3.6 K/mm3 (1.8-7.8); Neutrophils % 62.2 % (37.0-80.0); Platelet Count 242 K/mm3 (142-424); Red Blood Count 5.28 M/mm3 (4.20-5.40); Red Cell Distribution Width 14.5 % (11.5-17.5); White Blood Count 5.8 K/mm3 (4.8-10.8)
[2020-11-08 14:43] LABS: Chloride 101 mmol/L (98-107); Sodium 136 mmol/L (136-145)
--- NOTE | 2020-11-08 14:44 | XR_ITS ---
PROCEDURE INFORMATION: Exam: XR Chest Exam date and time: 11/08/2020 2:44 PM Age: 45 years old Clinical indication: Patient HX: Cough for a week with congestion. TECHNIQUE: Imaging protocol: XR of the chest. Views: 2 views. COMPARISON: CR XR CHEST 2V 02/28/2019 5:59 PM FINDINGS: Lungs: Minimal bibasilar atelectasis. Calcified granuloma within the left upper lobe periphery. Pleural spaces: Unremarkable. No pleural effusion. No pneumothorax. Heart/Mediastinum: Normal. Bones/joints: Minimal multilevel thoracic spine degenerative disc disease. IMPRESSION: No acute cardiopulmonary abnormality.
[2020-11-08 14:45] LABS: Blood Urea Nitrogen 9 mg/dl (7-17); Creatinine Clearance Estimated 65 mL/min (50-200); Estimated Glomerular Filt Rate 78 ml/min (>60); GFR (African American) 95 ML/MIN (>60)
[2020-11-08 14:46] LABS: Alanine Aminotransferase 16 U/L (12-78); Albumin Level 4.2 g/dl (3.5-5.0); Albumin/Globulin Ratio 1.3 (1.1-1.8); Alkaline Phosphatase 115 U/L (38-126); Aspartate Amino Transferase 27 U/L (14-36); Bilirubin,Total 0.2 mg/dl (0.2-1.3); Calcium 8.9 mg/dl (8.4-10.2); Carbon Dioxide 28 mmol/L (22.0-30.0); Globulin 3.2 g/dL (1.3-3.2); Glucose 91 mg/dl (74-100); Total Protein,Serum 7.4 g/dl (6.3-8.2)
--- NOTE | 2020-11-08 14:48 | HMH.EDGENADL ---
ED Disposition Clinical Impression: Acute bronchitis Qualifiers: Bronchitis organism: unspecified organism Qualified Code(s): J20.9 - Acute bronchitis, unspecified Disposition: Home, Self-Care Condition on Discharge: Good Instructions: DI for Acute Bronchitis Additional Instructions: Stop amoxicillin. Start Zithromax. Tessalon Perles for cough. Off work for 2 days. Follow-up with primary care provider if not improved in 4 to 5 days. Prescriptions: Benzonatate [Tessalon Perle 100mg Cap] 100 mg PO TIDP PRN #20 cap PRN Reason: Cough Transmission Status: [id number] Azithromycin [Zithromax 250mg tab] 250 mg PO DIRECTED #6 tab Transmission Status: [id number] Referrals: De La Cruz,Viral [Primary Care Provider] - Forms: Work/School Release - Critical Care Critical Care Time: No Attestation: On 11/08/20, the high probability of a clinically significant, sudden or life threatening deterioration of the following system(s) required my full and direct attention, intervention and personal management. The time I documented below is in addition to time spent performing reported procedures but includes the following listed in this critical care notation. Medical Decision Making - Mickey Inquiry Pt receiving controlled substance: No Vital Signs: 11/08/20 13:45 11/08/20 14:53 Temperature 99.2 F Temperature Source Oral Pulse Rate 73 Pulse Rate [Right] 84 Respiratory Rate 16 Blood Pressure 108/52 L Blood Pressure [Right Arm] 88/51 L Blood Pressure Mean [Right Arm] 63 Blood Pressure Source Automatic Cuff Blood Pressure Position Sitting 02 Sat by Pulse Oximetry 96 95 Oxygen Delivery Method Room Air Room Air - Lab Data Lab Results 11/08/20 14:30: WBC 5.8, RBC 5.28, Hgb 14.6, Hct 43.7, MCV 82.7, MCH 27.7, MCHC 33.5, RDW 14.5, Plt Count 242, MPV 7.4, Neut % (Auto) 62.2, Lymph % (Auto) 27.1, [place] % (Auto) 7.4, Eos % (Auto) 2.7, Baso % (Auto) 0.5, Neut # (Auto) 3.6, Lymph # (Auto) 1.6, [place] # (Auto) 0.4, Eos # (Auto) 0.2, Baso # (Auto) 0.0 11/08/20 14:30: Sodium 136, Potassium 4.0, Chloride 101, Carbon Dioxide 28, Anion Gap 11.0, BUN 9, Creatinine 0.80, Estimated Creat Clear 65, Estimated GFR 78, Est GFR ( Amer) 95, Glucose 91, Calcium 8.9, Total Bilirubin 0.2, AST 27, ALT 16, Alkaline Phosphatase 115, Total Protein 7.4, Albumin 4.2, Globulin 3.2, Albumin/Globulin Ratio 1.3 11/08/20 14:55: Lactate 0.7 Result diagrams: 11/08/20 14:30 11/08/20 14:30 Orders (Tests/Meds): ED MEDICATIONS Generic Name Dose Route Start Last Admin Trade Name Freq PRN Reason Stop Dose Admin Sodium Chloride 1,000 mls @ 999 mls/hr 11/08/20 14:30 11/08/20 14:32 Sod Chlor 0.9% 1000ml Bag IV 11/08/20 15:30 999 mls/hr .Q1H1M KULWINDER Administration ORDERS Category Date Time Status Chest XR 2 view (NOT portable) [XR chest 2V] Stat Exams 11/08/20 14:44 Taken Full Resp Panel w/COVID ([facility]) Routine Lab 11/08/20 14:45 Received Blood Culture Stat Micro 11/08/20 14:40 Received - Radiology Data #1 Image(s): Chest Image Reviewed: Yes I reviewed the patient's radiology image Preliminary Findings: Normal/NAD Medical Decision Narrative: The patient was triaged to the main emergency department because blood pressure was 88 systolic in triage, however 108 systolic in the emergency department. The patient does not appear toxic. Severe paroxysmal coughing causing urinary incontinence in the emergency department. I will cover for pertussis by changing antibiotic to Zithromax. Mayte Snider for cough. General Adult HPI - General Chief complaint: Weakness Stated complaint: cough, vomiting, diarrhea Time Seen by Provider: 11/08/20 14:35 Mode of Arrival: Family Vehicle Limitations: No Limitations Description of Symptoms (Recalled from ER Triage Doc. by RN): PATIENT C/O PRODUCTIVE COUGH, VOMITTING AND DIARRHEA FOR THE LAST 4 DAYS. PATIENT REPORTS SHE HAS BE
[2020-11-08 14:53] VITALS: BP 108/52; PULSE 73; O2SAT 95
[2020-11-08 14:53] LABS: Adenovirus,PCR Not Detected (NotDetected); Bordetella Pertussis Not Detected (NotDetected); Chlamydophila Pneumoniae, PCR Not Detected (NotDetected); Coronavirus 19, PCR Not Detected (NotDetected); Coronavirus 229E Not Detected (NotDetected); Coronavirus NL63 Not Detected (NotDetected); Coronavirus OC43 Not Detected (NotDetected); Coronovirus HKU1,PCR Not Detected (NotDetected); Human Metapneumovirus Not Detected (NotDetected); Influenza A, PCR Not Detected (NotDetected); Influenza AH1, 2009 Not Detected (NotDetected); Influenza AH1, PCR Not Detected (NotDetected); Influenza AH3,PCR Not Detected (NotDetected); Influenza B, PCR Not Detected (NotDetected); Mycoplasma Pneumoniae, PCR Not Detected (NotDetected); Parainfluenza 1, PCR Not Detected (NotDetected); Parainfluenza 2, PCR Not Detected (NotDetected); Parainfluenza 4, PCR Not Detected (NotDetected); Respiratory Syncytial Virus Not Detected (NotDetected)
[2020-11-08 15:15] LABS: Lactic Acid 0.7 mmol/L (0.7-2.1)
[2020-11-08 15:41] VITALS: BP 105/55; PULSE 71; RESP 18; TEMP 37.3; O2SAT 100
[2020-11-08 18:38] LABS: Rhinovirus/Enterovirus Detected (NotDetected)
[2020-11-08 18:39] LABS: Parainfluenza 3, PCR Detected (NotDetected)
== END 2020-11-08 15:45 | disposition home or self-care (01) ==
PROVIDERS: Emergency Provider Emergency Medicine; PCP Family Medicine
DX: J20.9 Acute bronchitis, unspecified (principal); F41.8 Other specified anxiety disorders; K21.9 Gastro-esophageal reflux disease without esophagitis; I10 Essential (primary) hypertension; E78.5 Hyperlipidemia, unspecified; Z79.899 Other long term (current) drug therapy
CPT/HCPCS: 71046; 80053; 83605; 85025; 87040; 87581; 87633; 87798; 96365; 99283

== ENCOUNTER 2020-11-11 17:13 | Observation (INO) | payer OTHER, SELFPAY ==
[2020-11-11] VITALS (14 sets, daily range): BP systolic 91–123; BP diastolic 51–75; PULSE 73–98; RESP 14–22; TEMP 36.9; O2SAT 86–95; BMI 58.0; BMI 56.7
--- NOTE | 2020-11-11 17:28 | HMH.EDGENADL ---
ED Disposition Clinical Impression: Acute bronchitis with bronchospasm Disposition: Admitted as Observation Condition on Discharge: Fair - Critical Care Critical Care Time: No Attestation: On 11/11/20, the high probability of a clinically significant, sudden or life threatening deterioration of the following system(s) required my full and direct attention, intervention and personal management. The time I documented below is in addition to time spent performing reported procedures but includes the following listed in this critical care notation. Medical Decision Making - Medical Records Medical records reviewed: Yes: I reviewed the patient's medical records. MR Comment: Reviewed emergency department visit 11/08/2020 - Mickey Inquiry Pt receiving controlled substance: No Vital Signs: 11/11/20 17:16 11/11/20 17:31 11/11/20 17:45 Temperature 98.4 F Temperature Source Oral Pulse Rate 85 94 H Pulse Rate [Right] 84 Respiratory Rate 14 Blood Pressure 109/73 L Blood Pressure [Right Arm] 119/63 Blood Pressure Mean 82 Blood Pressure Mean [Right Arm] 81 02 Sat by Pulse Oximetry 95 91 L Oxygen Delivery Method Room Air 11/11/20 18:00 11/11/20 18:30 11/11/20 18:49 Temperature Temperature Source Pulse Rate 78 73 98 H Pulse Rate [Right] Respiratory Rate Blood Pressure 96/54 L 91/52 L Blood Pressure [Right Arm] Blood Pressure Mean 68 68 Blood Pressure Mean [Right Arm] 02 Sat by Pulse Oximetry 87 L 86 L Oxygen Delivery Method 11/11/20 19:00 11/11/20 19:18 11/11/20 19:32 Temperature Temperature Source Pulse Rate 80 89 83 Pulse Rate [Right] Respiratory Rate Blood Pressure 112/57 L 109/51 L Blood Pressure [Right Arm] Blood Pressure Mean Blood Pressure Mean [Right Arm] 02 Sat by Pulse Oximetry 95 92 L Oxygen Delivery Method - Lab Data Lab Results 11/11/20 17:22: WBC 9.6, RBC 5.50 H, Hgb 15.3, Hct 45.1, MCV 81.9, MCH 27.9, MCHC 34.1, RDW 14.5, Plt Count 266, MPV 9.1, Neut % (Auto) 53.9, Lymph % (Auto) 38.0, [place] % (Auto) 5.1, Eos % (Auto) 2.1, Baso % (Auto) 0.9, Neut # (Auto) 5.2, Lymph # (Auto) 3.7, [place] # (Auto) 0.5, Eos # (Auto) 0.2, Baso # (Auto) 0.1 11/11/20 17:22: Sodium 138, Potassium 3.9, Chloride 103, Carbon Dioxide 29, Anion Gap 9.9, BUN 6 L, Creatinine 0.80, Estimated Creat Clear 65, Estimated GFR 78, Est GFR ( Amer) 95, Glucose 97, Calcium 8.8 Result diagrams: 11/11/20 17:22 11/11/20 17:22 Orders (Tests/Meds): ED MEDICATIONS Generic Name Dose Route Start Last Admin Trade Name Freq PRN Reason Stop Dose Admin Ceftriaxone Sodium 1 gm/ 50 mls @ 100 mls/hr 11/11/20 20:15 11/11/20 20:21 Sodium Chloride IV 11/25/20 20:14 100 mls/hr Q24H KULWINDER Administration Protocol Discontinued Medications Generic Name Dose Route Start Last Admin Trade Name Freq PRN Reason Stop Dose Admin Albuterol/Ipratropium 3 ml 11/11/20 17:31 11/11/20 17:45 Ipratropium/Albuterol 3 Ml [facility] hospital 11/11/20 17:32 3 ml ONCE ONE Administration Albuterol/Ipratropium 3 ml 11/11/20 18:33 11/11/20 18:49 Ipratropium/Albuterol 3 Ml Critical [facility] hospital 11/11/20 18:34 3 ml ONCE ONE Administration Albuterol/Ipratropium 3 ml 11/11/20 19:01 11/11/20 19:18 Ipratropium/Albuterol 3 Ml Critical [facility] hospital 11/11/20 19:02 3 ml ONCE ONE Administration Methylprednisolone Sodium Succinate 125 mg 11/11/20 17:31 11/11/20 17:38 Methylprednisolone Sod Succ 125mg Vial IV 11/11/20 17:32 125 mg ONCE ONE Administration ORDERS Category Date Time Status Rapid PCR Covid and Flu A/B Stat Lab 11/11/20 19:21 Received - Radiology Data #1 Image(s): Chest Image Reviewed: Yes I reviewed the patient's radiology image, Yes I have reviewed radiologist's interpretation PROCEDURE INFORMATION: Exam: XR Chest Exam date and time: 11/11/2020 7:22 PM Age: 45 years old Clinical indication: Patient HX: Severe shortness of breath, smo
--- NOTE | 2020-11-11 17:48 | PC.NURSE ---
RT at bedside administering breathing treatment
--- NOTE | 2020-11-11 19:22 | XR_ITS ---
PROCEDURE INFORMATION: Exam: XR Chest Exam date and time: 11/11/2020 7:22 PM Age: 45 years old Clinical indication: Patient HX: Severe shortness of breath, smoker. ; Additional info: SOA TECHNIQUE: Imaging protocol: XR of the chest. Views: 1 view. COMPARISON: CR XR CHEST 2V 11/08/2020 2:51 PM FINDINGS: Lungs: Atelectatic and/or early infiltrative changes noted within both lung bases. Pleural spaces: Unremarkable. No pleural effusion. No pneumothorax. Heart/Mediastinum: Unremarkable. No cardiomegaly. Bones/joints: Unremarkable. IMPRESSION: Atelectatic and/or early infiltrative changes noted within both lung bases.
[2020-11-11 19:36] LABS: Coronavirus 19, PCR Not Detected (NotDetected); Influenza A, PCR Not Detected (NotDetected); Influenza B, PCR Not Detected (NotDetected)
[2020-11-11 19:39] LABS: Basophils # 0.1 K/mm3 (0-0.2); Basophils % 0.9 % (0.1-2.0); Eosinophils # 0.2 K/mm3 (0.0-0.4); Eosinophils % 2.1 % (0.1-12.0); Hematocrit 45.1 % (37.0-47.0); Hemoglobin 15.3 g/dL (12.2-16.2); Lymphocytes # 3.7 K/mm3 (0.7-4.5); Mean Corpuscular HGB Conc 34.1 g/dL (31.8-35.4); Mean Corpuscular Hemoglobin 27.9 pg (27.0-31.2); Mean Corpuscular Volume 81.9 fl (81-99); Mean Platelet Volume 9.1 fl (7.4-10.4); Monocytes # 0.5 K/mm3 (0.1-1.0); Monocytes % 5.1 % (1.7-9.3); Neutrophils # 5.2 K/mm3 (1.8-7.8); Neutrophils % 53.9 % (37.0-80.0); Platelet Count 266 K/mm3 (142-424); Red Cell Distribution Width 14.5 % (11.5-17.5); White Blood Count 9.6 K/mm3 (4.8-10.8)
[2020-11-11 19:40] LABS: Anion Gap 9.9 mEq/L (5-15); Blood Urea Nitrogen 6 mg/dl (7-17); Calcium 8.8 mg/dl (8.4-10.2); Carbon Dioxide 29 mmol/L (22.0-30.0); Chloride 103 mmol/L (98-107); Creatinine Clearance Estimated 65 mL/min (50-200); Estimated Glomerular Filt Rate 78 ml/min (>60); GFR (African American) 95 ML/MIN (>60); Glucose 97 mg/dl (74-100); Potassium 3.9 mmoL/L (3.5-5.1); Sodium 138 mmol/L (136-145)
--- NOTE | 2020-11-11 21:52 | PC.NURSE ---
PT ARRIVED TO FLOOR VIA W/C FROM ED W/STAFF AT 335
[2020-11-12] VITALS (8 sets, daily range): BP systolic 103–137; BP diastolic 56–68; PULSE 61–88; RESP 17–20; TEMP 36.4–36.7; O2SAT 86–96
--- NOTE | 2020-11-12 07:49 | HMH.PHAVTE ---
[facility] Pharmacy VTE Monitoring - Patient Demographics Admission date: 11/11/20 Report Date: 11/12/20 Time: 07:50 Allergies/Adverse Reactions: Patient Allergies cat dander Allergy (Intermediate, Verified 09/28/20 11:26) Swelling of the Eye varenicline [From CHANTIX] Allergy (Unknown, Verified 11/12/20 07:38) Unknown allergy reaction Height: 1.52 m Weight: 131.797 kg Patient Problems: Current Active Problems Acute bronchitis with bronchospasm (Acute) - VTE Risk Labs: VTE Related Lab Results Hgb 15.3 g/dL (12.2-16.2) 11/11/20 17:22 Hct 45.1 % (37.0-47.0) 11/11/20 17:22 Plt Count 266 K/mm3 (142-424) 11/11/20 17:22 BUN 6 mg/dl (7-17) L 11/11/20 17:22 Creatinine 0.80 mg/dl (0.52-1.04) 11/11/20 17:22 Estimated Creat Clear 65 mL/min (50-200) 11/11/20 17:22 VTE Score: 6 VTE Risk Level: Moderate Risk - Prophylaxis VTE Prophylaxis Ordered?: Yes Types of VTE Prophylaxis: TEDS Knee High Location of Applied Device: Bilateral Lower Extremeties
--- NOTE | 2020-11-12 08:33 | HMH.HP ---
*Admission Date: 11/11/20 *Chief complaint: Shortness of breath *History of present illness: Ms. De Jesus is a 45-year-old female who states her son was sick at the beginning of October and then she began feeling poorly. He has improved but her symptoms only worsened. She started with upper respiratory symptoms and saw her PCP. She was started on amoxicillin which did not help. She then began getting short of breath and wheezing. She presented to the emergency room over the weekend and was started on Zithromax. She states over the course the past few days she has been getting very confused and extremely weak. She states she did have a pulse ox and checked her oxygen and it was in the 80s. Her shortness of breath continued to worsen and her oxygen was in the 70s therefore she presented to the emergency room again for evaluation. Of note, she did have a respiratory panel which showed rhinovirus as well as parainfluenza. She had a chest x-ray in the ER showing atelectatic versus early infiltrative changes of the both lung bases. Her sats were in the 80s. She was admitted and placed on oxygen, given steroids and duo nebs, and she was started on Rocephin. She is a smoker but states she has not smoked since she got sick. [facility] History I have reviewed the patient's past medical history: Yes Medical History: Reports:: Anxiety, Depression, Gastroesophageal Reflux Disease(GERD), Hyperlipidemia, Hypertension Denies:: Cancer, Diabetes Mellitus Type 1, Diabetes Mellitus Type 2, MRSA, Seizures *Have you ever received a pneumonia vaccine?: Yes *Have you received a flu vaccine this season?: Yes Other Medical History: Denies: Blood Transfusion Reaction Laterality Cases: Bilateral: Tonsillectomy Other Surgeries: Yes: Cardiac Catheterization, Cholecystectomy, Colonoscopy, Hernia Repair, Tubal Ligation, Other Amputation: No Fractures: Yes (tailbone) - *Social History Smoking Status: Former smoker Tobacco Type: cigarettes # Packs/Day (cigarettes): 1 Alcohol Intake: never Alcohol Intake Frequency:: other Substance Use Type: denies use *Occupational Status:: unemployed Housing: apartment Household Members: children *Travel in the last 8 weeks: None - Psychiatric History Pschychiatric History:: Reports:: Anxiety, Depression Family Hx:: Asthma, Cancer, Coronary Artery Disease, Diabetes, Heart Attack, Hyperlipidemia, Hypertension Review of Systems - Constitutional Reports weakness, Denies fever(s) - Eyes Denies blurry vision, Denies double vision - ENT Reports nasal congestion, Denies sore throat - *Cardiovascular Reports shortness of breath, Denies chest pain, Denies leg swelling - *Respiratory Reports chest congestion, Reports cough, Reports shortness of breath, Reports wheezing - *Gastrointestinal Denies abdominal pain, Denies loose stools, Denies nausea, Denies vomiting - *Genitourinary Denies difficulty urinating, Denies painful urination - *Musculoskeletal Denies joint pain - *Neurologic Reports weakness, Denies headache(s), Denies dizziness Meds Home Medications Medication Instructions Recorded Confirmed Type divalproex 125 mg tablet,delayed 125 mg PO DAILY 09/28/20 11/11/20 History release famotidine 40 mg tablet 40 mg PO DAILY tab 09/28/20 11/11/20 History hydrochlorothiazide 25 mg tablet 25 mg PO DAILY tab 09/28/20 11/11/20 History Benzonatate [Tessalon Perle 100mg 100 mg PO TIDP PRN #20 cap 11/08/20 11/11/20 Rx Cap] Azithromycin [Zithromax 250mg 250 mg PO DIRECTED 11/11/20 11/11/20 History tab] Montelukast Sodium [Singulair] 10 mg PO DAILY 11/11/20 11/11/20 History Allergies Allergy/AdvReac Type Severity Reaction Status Date / Time cat dander Allergy Intermediate Swelling Verified 09/28/20 11:26 of the Eye varenicline [From CHANTIX] Allergy Unknown Unknown Verified 11/12/20 07:38 allergy reaction Exam Vital signs and Labs for Last 24 Hours: Temp Pulse Resp BP Pulse
--- NOTE | 2020-11-12 09:39 | HMH.PHAINT ---
MEDICATION RECONCILIATION COMPLETED ON PATIENT USING EXTERNAL FILL HISTORY FROM PHARMACY, LIST FROM PCP, AND PATIENT INTERVIEW. -ISIDORO PIERRE, SHANICED
[2020-11-12 10:56] LABS: D-Dimer 0.66 ug/mL (0.0-0.5)
[2020-11-12 12:28] LABS: Coronavirus 19 IgG Antibody Negative (Negative); Coronavirus 19 IgM Antibody Negative (Negative)
--- NOTE | 2020-11-12 13:05 | PC.NURSE ---
Called and spoke with Davida in [facility] office. per the patient she needs to leave so she can take her son to the ER at [facility]. (her family doc is in [place] and suggested a transfer to [facility] so he can continue her care up there. pt states if she isnt discharged/transferred she will still need to leave so she can care for her son. awaiting call back.
--- NOTE | 2020-11-12 13:56 | SW/DCPLANNER ---
Patient information and order has been faxed to [facility] for nebulizer machine and home/portable O2. I will follow up with [facility] once information is reviewed. Patient will discharge home today.
--- NOTE | 2020-11-12 14:54 | P.PN_ITS ---
Internal Medicine - PN: Subj *Date: 11/12/20 *Time: 14:54 Interval history: Patient rang out to her nurse and stated she needed to leave. Her son is sick and needs to be taken to the ER. She stated she either needed to be discharged or she would leave AMA. I discussed with Dr. Trujillo. Her oxygen was 89% on RA a few minutes ago but she does qualify for home oxygen and will need a nebulizer and steroids. We will discharge and care management will arrange the oxygen and neb. She will need to f/u with her PCP tomorrow. Exam Vital signs and Labs for Last 24 Hours: Temp Pulse Resp BP Pulse Ox 97.6 F 65 18 127/61 86 L 11/12/20 07:36 11/12/20 13:43 11/12/20 07:36 11/12/20 07:36 11/12/20 14:43 Laboratory Results - last 24 hr 11/11/20 17:22: WBC 9.6, RBC 5.50 H, Hgb 15.3, Hct 45.1, MCV 81.9, MCH 27.9, MCHC 34.1, RDW 14.5, Plt Count 266, MPV 9.1, Neut % (Auto) 53.9, Lymph % (Auto) 38.0, [place] % (Auto) 5.1, Eos % (Auto) 2.1, Baso % (Auto) 0.9, Neut # (Auto) 5.2, Lymph # (Auto) 3.7, [place] # (Auto) 0.5, Eos # (Auto) 0.2, Baso # (Auto) 0.1 11/11/20 17:22: Sodium 138, Potassium 3.9, Chloride 103, Carbon Dioxide 29, Anion Gap 9.9, BUN 6 L, Creatinine 0.80, Estimated Creat Clear 65, Estimated GFR 78, Est GFR ( Amer) 95, Glucose 97, Calcium 8.8 11/11/20 19:21: SARS-CoV-2 (PCR) Not detected, Influenza A Untype (PCR) Not detected, Influenza Type B (PCR) Not detected 11/12/20 10:22: D-Dimer 0.66 H 11/12/20 10:59: SARS-CoV-2 IgG Ab (Rapid) Negative, SARS-CoV-2 IgM Ab (Rapid) Negative I & O for Last 24 hours: Intake & Output 11/10/20 11/11/20 11/12/20 11/13/20 11:59 11:59 11:59 11:59 Intake Total 240 / 240 120 / 120 Balance 240 / 240 120 / 120 Weight 290 lb 9 oz Assessment and Plan (1) Acute bronchitis with bronchospasm Status: Acute Category: Medical Code(s): J20.9 - Acute bronchitis, unspecified (2) Rhinovirus Status: Acute Category: Medical Code(s): B34.8 - Other viral infections of unspecified site (3) Parainfluenza infection Status: Acute Category: Medical Code(s): B34.8 - Other viral infections of unspecified site (4) Hyperlipidemia Status: Chronic Qualifiers: Hyperlipidemia type: other hyperlipidemia Category: Medical Code(s): E78.5 - Hyperlipidemia, unspecified (5) Morbid obesity with BMI of 50.0-59.9, adult Status: Acute Category: Medical Code(s): E66.01 - Morbid (severe) obesity due to excess calories; Z68.43 - Body mass index [BMI] 50.0-59.9, adult (6) Tobacco use disorder Status: Chronic Category: Medical Code(s): F17.200 - Nicotine dependence, unspecified, uncomplicated (7) Anxiety Status: Chronic Category: Medical Code(s): F41.9 - Anxiety disorder, unspecified (8) Chronic bronchitis Status: Acute Category: Medical Code(s): J42 - Unspecified chronic bronchitis
--- NOTE | 2020-11-13 12:24 | HMH.DCSUM ---
General - General Admission date:: 11/11/20 Discharge date: 11/12/20 HPI HPI: Ms. De Jesus is a 45-year-old female who states her son was sick at the beginning of October and then she began feeling poorly. He has improved but her symptoms only worsened. She started with upper respiratory symptoms and saw her PCP. She was started on amoxicillin which did not help. She then began getting short of breath and wheezing. She presented to the emergency room over the weekend and was started on Zithromax. She states over the course the past few days she has been getting very confused and extremely weak. She states she did have a pulse ox and checked her oxygen and it was in the 80s. Her shortness of breath continued to worsen and her oxygen was in the 70s therefore she presented to the emergency room again for evaluation. Of note, she did have a respiratory panel which showed rhinovirus as well as parainfluenza. She had a chest x-ray in the ER showing atelectatic versus early infiltrative changes of the both lung bases. Her sats were in the 80s. She was admitted and placed on oxygen, given steroids and duo nebs, and she was started on Rocephin. She is a smoker but states she has not smoked since she got sick. Hospital Course Hospital Course: The patient was admitted and started on oxygen, IV antibiotics, steroids, and nebs. Previous respiratory panel had been positive for parainfluenza virus as well as rhinovirus. The patient's oxygen was weaned but she was still at 89% on room air. She got a call stating that her son was ill and needed to be taken to the emergency room. She stated she either needed to be discharged or was going to leave [facility]. The case was discussed with Dr. Trujillo and as her oxygen had been 86% in the emergency room, she qualified for home oxygen. This was ordered as was a nebulizer and neb treatments. She was discharged home on oxygen, nebs, and steroids. She will need to follow-up with her PCP on 11/13/2020. Objective Vital signs: Temp Pulse Resp BP Pulse Ox 98.1 F 78 20 137/68 90 L 11/12/20 15:03 11/12/20 15:03 11/12/20 15:03 11/12/20 15:03 11/12/20 15:03 Narrative: - Constitutional no acute distress - *Routine HEENT Exam Head: Present: normocephalic Eye: Present: EOMI, PERRL ENT: Present: mucous membranes dry - *Routine Neck Exam Present: supple. Absent: lymphadenopathy - *Routine Respiratory Exam Present: decreased breath sounds, wheezes - *Routine Cardiovascular Exam Present: RRR - *Routine Abdominal Exam Present: soft, normoactive bowel sounds. Absent: tenderness - *Routine Rectal Exam Rectal:: deferred - *Routine Genitalia Exam Genitalia:: deferred - *Routine Extremities Exam Absent: cyanosis, clubbing, edema - *Routine Skin Exam Present: warm. Absent: rash - *Routine Neurological Exam Present: alert, oriented X3 Results Labs on day of discharge: Labs from last 24 hours 11/12/20 10:59 SARS-CoV-2 IgG Ab (Rapid) Negative SARS-CoV-2 IgM Ab (Rapid) Negative DS: Diagnosis - Discharge Diagnosis (1) Acute bronchitis with bronchospasm Status: Acute (2) Rhinovirus Status: Acute (3) Parainfluenza infection Status: Acute (4) Hyperlipidemia Status: Chronic (5) Morbid obesity with BMI of 50.0-59.9, adult Status: Acute (6) Tobacco use disorder Status: Chronic (7) Anxiety Status: Chronic (8) Chronic bronchitis Status: Acute Discharge Plan - Patient Discharge Instructions ACTIVITY: Limited activity DIET: continue same diet Patient Instructions: DI for Acute Bronchitis - Follow up Plan Follow up with: Jake De La Cruz [Primary Care Provider] - 11/13/20 9:40 am Disposition: Home, Self-Care Condition at discharge:: Improved Home Medications: Home Medications Medication Instructions Recorded Confirmed Type divalproex 125 mg tablet,delayed 125 mg PO DAILY 09/28/20 11/12/20 History r
[2020-11-15 11:50] LABS: Antinuclear Antibodies (ANA) NEGATIVE
== END 2020-11-12 15:24 | disposition home or self-care (01) ==
LOC: ER 20:16 → 2ND 21:37
PROVIDERS: Admitting Provider Family Medicine; Emergency Provider Emergency Medicine; PCP Family Medicine; Visit Provider Family Medicine
DX: J20.9 Acute bronchitis, unspecified (principal); F17.210 Nicotine dependence, cigarettes, uncomplicated; I10 Essential (primary) hypertension; Z79.899 Other long term (current) drug therapy; Z88.8 Allergy status to other drugs, medicaments and biological substances; E66.01 Morbid (severe) obesity due to excess calories; Z68.43 Body mass index [BMI] 50.0-59.9, adult
CPT/HCPCS: 36415; 71045; 80048; 85025; 85378; 86038; 86328; 94640; 96365; 96375; 99284; G0378; U0003

== ENCOUNTER 2021-04-24 08:47 | Emergency (ER) | payer OTHER, SELFPAY ==
[2021-04-24 08:48] VITALS: BP 109/68; PULSE 80; RESP 18; TEMP 36.7; O2SAT 95; BMI 56.0
--- NOTE | 2021-04-24 08:48 | HMH.EDGENADL ---
ED Disposition Clinical Impression: Viral infection Disposition: Home, Self-Care Condition on Discharge: Good Additional Instructions: Take medications as directed. Maintain follow-up as scheduled on 26 April. Return to the emergency room for shortness of breath, chest pain. Referrals: Provider,Referral, [Primary Care Provider] - 3 days Time of Disposition: 09:57 - Critical Care Critical Care Time: No Attestation: On , the high probability of a clinically significant, sudden or life threatening deterioration of the following system(s) required my full and direct attention, intervention and personal management. The time I documented below is in addition to time spent performing reported procedures but includes the following listed in this critical care notation. Medical Decision Making - Medical Records Medical records reviewed: Yes: I reviewed the patient's medical records. - Mickey Inquiry Pt receiving controlled substance: No Vital Signs: 04/24/21 08:48 04/24/21 09:00 Temperature 98.0 F Temperature Source Oral Pulse Rate 80 Pulse Rate [Right Radial] 80 Respiratory Rate 18 Blood Pressure 125/82 Blood Pressure [Right Arm] 109/68 L Blood Pressure Mean [Right Arm] 81 Blood Pressure Source [Right Arm] Automatic Cuff Blood Pressure Position [Right Arm] Sitting 02 Sat by Pulse Oximetry 95 96 Oxygen Delivery Method Nasal Cannula Oxygen Flow Rate (LPM) 3 - Lab Data Lab results reviewed: Yes: I reviewed the patient's lab results. Lab Results 04/24/21 08:57: WBC 13.2 H, RBC 5.41 H, Hgb 15.4, Hct 46.1, MCV 85.2, MCH 28.5, MCHC 33.4, RDW 14.0, Plt Count 361, MPV 7.6, Neut % (Auto) 58.3, Lymph % (Auto) 34.9, Blanco % (Auto) 4.6, Eos % (Auto) 1.2, Baso % (Auto) 1.1, Neut # (Auto) 7.7, Lymph # (Auto) 4.6 H, Blanco # (Auto) 0.6, Eos # (Auto) 0.2, Baso # (Auto) 0.1 04/24/21 08:57: Sodium 138, Potassium 3.8, Chloride 97 L, Carbon Dioxide 39 H, Anion Gap 5.8, BUN 10, Creatinine 0.80, Estimated Creat Clear 65, Estimated GFR 78, Est GFR ( Amer) 95, Glucose 79, Calcium 8.7, Total Bilirubin 0.3, AST 38 H, ALT 28, Alkaline Phosphatase 91, Total Protein 6.6, Albumin 3.8, Globulin 2.8, Albumin/Globulin Ratio 1.4 04/24/21 09:02: SARS-CoV-2 (PCR) Not detected, Influenza A Untype (PCR) Not detected, Influenza Type B (PCR) Not detected Result diagrams: 04/24/21 08:57 04/24/21 08:57 - Radiology Data #1 Image(s): Chest Image Reviewed: Yes I reviewed the patient's radiology results Preliminary Findings: Normal/NAD Medical Decision Narrative: 45yo F evaluated for sore throat and sinus fullness. Patient is in no acute distress on initial evaluation. Patient has some of her paperwork from her recent hospitalization that I have reviewed. It shows that she was started on Mucinex, prednisone. She was also instructed to continue taking Zyrtec as well as albuterol and montelukast. Routine laboratory studies are collected and are unremarkable. Patient does have a mild leukocytosis but she is on steroids. Encouraged to continue medications as directed. Maintain follow-up as directed. General Adult HPI - General Stated complaint: sore throat Time Seen by Provider: 04/24/21 08:48 Mode of Arrival: EMS Source of Information: Patient Limitations: No Limitations - History of Present Illness HPI narrative: 45yo F presents the emergency department secondary to concern for sinusitis and pain with swallowing. Patient reports she was recently discharged from a different facility after being there for 2 days which she was diagnosed with viral pneumonia and COPD. She reports being started on multiple new medications but is uncertain what all of them are. She denies any fever. She reports that the symptoms actually started prior to being discharged from the other facility. She denies any fever, new cough, worsening shortness of breath. She reports she was discharged home from the other facility with supplementa
[2021-04-24 09:00] VITALS: BP 125/82; PULSE 80; O2SAT 96
[2021-04-24 09:07] LABS: Basophils # 0.1 K/mm3 (0-0.2); Basophils % 1.1 % (0.1-2.0); Eosinophils # 0.2 K/mm3 (0.0-0.4); Eosinophils % 1.2 % (0.1-12.0); Hematocrit 46.1 % (37.0-47.0); Hemoglobin 15.4 g/dL (12.2-16.2); Lymphocytes # 4.6 K/mm3 (0.7-4.5); Lymphocytes % 34.9 % (10-50); Mean Corpuscular HGB Conc 33.4 g/dL (31.8-35.4); Mean Corpuscular Hemoglobin 28.5 pg (27.0-31.2); Mean Corpuscular Volume 85.2 fl (81-99); Mean Platelet Volume 7.6 fl (7.4-10.4); Monocytes # 0.6 K/mm3 (0.1-1.0); Monocytes % 4.6 % (1.7-9.3); Neutrophils # 7.7 K/mm3 (1.8-7.8); Neutrophils % 58.3 % (37.0-80.0); Platelet Count 361 K/mm3 (142-424); Red Blood Count 5.41 M/mm3 (4.20-5.40); White Blood Count 13.2 K/mm3 (4.8-10.8)
--- NOTE | 2021-04-24 09:08 | XR_ITS ---
PROCEDURE INFORMATION: Exam: XR Chest Exam date and time: 04/24/2021 9:08 AM Age: 45 years old Clinical indication: Shortness of breath; Additional info: SOA TECHNIQUE: Imaging protocol: XR of the chest. Views: 1 view. COMPARISON: CR XR CHEST PORTABLE 11/11/2020 7:26 PM FINDINGS: Lungs: Mild bibasilar opacities, likely atelectasis. Pleural spaces: Unremarkable. No pleural effusion. No pneumothorax. Heart/Mediastinum: Unremarkable. No cardiomegaly. Bones/joints: Unremarkable. IMPRESSION: Mild bibasilar opacities, likely atelectasis.
[2021-04-24 09:10] LABS: Coronavirus 19, PCR Not Detected (NotDetected); Influenza A, PCR Not Detected (NotDetected); Influenza B, PCR Not Detected (NotDetected)
[2021-04-24 09:23] LABS: Alanine Aminotransferase 28 U/L (12-78); Albumin Level 3.8 g/dl (3.5-5.0); Albumin/Globulin Ratio 1.4 (1.1-1.8); Alkaline Phosphatase 91 U/L (38-126); Anion Gap 5.8 mEq/L (5-15); Aspartate Amino Transferase 38 U/L (14-36); Bilirubin,Total 0.3 mg/dl (0.2-1.3); Blood Urea Nitrogen 10 mg/dl (7-17); Calcium 8.7 mg/dl (8.4-10.2); Carbon Dioxide 39 mmol/L (22.0-30.0); Chloride 97 mmol/L (98-107); Creatinine Clearance Estimated 65 mL/min (50-200); Estimated Glomerular Filt Rate 78 ml/min (>60); GFR (African American) 95 ML/MIN (>60); Globulin 2.8 g/dL (1.3-3.2); Glucose 79 mg/dl (74-100); Potassium 3.8 mmoL/L (3.5-5.1); Sodium 138 mmol/L (136-145); Total Protein,Serum 6.6 g/dl (6.3-8.2)
--- NOTE | 2021-04-24 09:32 | PC.NURSE ---
Pt up to restroom
[2021-04-24 09:39] VITALS: BP 130/80; PULSE 70; O2SAT 95
[2021-04-24 10:01] VITALS: BP 126/65; PULSE 81; O2SAT 95
[2021-04-24 10:11] VITALS: BP 126/65; PULSE 81; RESP 20; TEMP 36.7; O2SAT 95
== END 2021-04-24 10:12 | disposition home or self-care (01) ==
PROVIDERS: Emergency Provider Family Medicine
DX: J12.9 Viral pneumonia, unspecified (principal); B34.9 Viral infection, unspecified; F41.8 Other specified anxiety disorders; K21.9 Gastro-esophageal reflux disease without esophagitis; E78.5 Hyperlipidemia, unspecified; I10 Essential (primary) hypertension; Z87.891 Personal history of nicotine dependence
CPT/HCPCS: 71045; 80053; 85025; 99283; C9803; U0003; U0005

== ENCOUNTER 2024-04-22 17:30 | Emergency (ER) | payer SELFPAY ==
[2024-04-22 17:36] VITALS: BP 137/64; PULSE 77; O2SAT 99
[2024-04-22 17:42] VITALS: BP 137/64; PULSE 74; RESP 18; TEMP 36.9; O2SAT 99; BMI 46.5
--- NOTE | 2024-04-22 17:45 | XR_ITS ---
PROCEDURE INFORMATION: Exam: XR Right Foot Exam date and time: 04/22/2024 5:51 PM Age: 48 years old Clinical indication: Pain; Foot; Right; Additional info: Foot pain TECHNIQUE: Imaging protocol: Radiologic exam of the right foot. Views: 3 or more views. COMPARISON: No relevant prior studies available. FINDINGS: Bones/joints: Calcaneus enthesophytes. Posterior tibial irregularity is most likely chronic. Irregularity of the medial aspect of the navicular bone. The navicular bone is larger than expected. Soft tissues: Normal. IMPRESSION: 1. No acute findings. 2. Irregularity of the medial aspect of the navicular bone. The navicular bone is larger than expected. This is likely a developmental variant, such as accessory navicular bone. These can be symptomatic.
--- NOTE | 2024-04-22 17:47 | ED_ITS ---
Discharge Plan Disposition Patient Disposition: Home, Self-Care Condition: Good Prescriptions Prescriptions: No Action No Known Home Medications Referrals Follow up/Referrals: Provider,Referral, [Primary Care Provider] - See instructions Socorro Wilhelm DPM [Staff Physician] - See instructions Activity Restrictions/Add. Instructions Additional Instructions/Restrictions: You were evaluated in the emergency department today. Please wear the hard sole shoe until you have seen podiatry. Take Tylenol and ibuprofen at home as needed for pain. Rest, ice, and elevate your foot to reduce pain and swelling. Return to the emergency department for new or worsening symptoms. Clinical Impressions Clinical Impression: Acute foot pain, Accessory navicular bone of foot Stand Alone Forms Stand Alone Forms: Work/School Release Instructions Patient Instructions: DI for Metatarsalgia, DI for Foot Pain Print Language Print Language: Slovenian Discharge ED Provider: Hetal Ley General Adult HPI General Chief complaint: Extremity Injury, Lower Stated complaint: AO 04/22/24 1640 injury right foot Time Seen by Provider: 04/22/24 17:36 History of Present Illness HPI narrative: This patient is a 48-year-old female with history of obesity, depression, anxiety, and tobacco use presenting to the emergency department for evaluation with concern for right foot injury after mechanical ground-level fall. Patient states that she slipped on canola oil at [facility], and her right foot got caught up under a shelf. She caught herself before hitting the ground. She did not hit her head or lose consciousness. She complains of pain in her right midfoot and states that she is walking on a golf ball. This happened just prior to arrival. No other concerns or complaints noted. She does not take any blood thinners or aspirin. Related Data Home Medications ?Medication ?Instructions ?Recorded ?Confirmed No Known Home Medications 04/22/24 04/22/24 Allergies Allergy/AdvReac Type Severity Reaction Status Date / Time No Known Allergies Allergy Verified 04/22/24 17:42 [facility] Disclaimer: The information contained in this section may have been updated after the patient was seen, as this information can be updated by other users. 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 current occupational exposures/hazards: No caffeine: Yes Other Medical History Have you received the Flu Vaccine for this season: Yes Have you received the Pneumonia Vaccine: No ROS Obtained: Yes All systems reviewed & no additional complaints except as documented Physical Exam General General appearance: alert and in no apparent distress Head Head exam: atraumatic and normocephalic Eye Eye exam: Present normal appearance, PERRL and EOMI ENT ENT exam: Present normal exam, normal oropharynx, mucous membranes moist and normal external ear exam Neck Neck exam: Present normal inspection, full ROM and trachea midline; Absent tenderness Chest Chest inspection: Present normal inspection and symmetric chest wall rise; Absent tenderness Respiratory Respiratory exam: Present normal lung sounds bilaterally; Absent respiratory distress, wheezes, stridor or accessory muscle use Cardiovascular Cardiovascular exam: Present regular rate and normal rhythm Abdominal Exam Abdominal exam: Present soft; Absent distention, tenderness or guarding Extremities Exam Extremities exam: Present full ROM and normal capillary refill; Absent tenderness or edema Expanded Lower Extremity Exam Right: Bottom foot image: 2 1. Tenderness to palpation. No obvious deformity. Neurovascularly intact distally. Neurovascular/Tendon exam: Present normal capillary refill; Absent pulse deficit, motor deficit or sensory deficit Back Exam Back exam: Present normal inspection and full ROM; Absent tenderness Neurological Exam Neurological exam: Present alert, oriented X3, CN II-XII intact and normal gait; Absent motor sensory deficit Psychiatric Psychiatric exam: Present normal affect and normal mood Skin Skin exam: Present warm and dry Medical Decision Making Medical Records Medical records reviewed: Yes I reviewed the patient's medical records. Screening: Per USPSTF and CDC recommendations, given the prevalence of disease in our region, it is our hospital?s policy to screen for HIV and viral Hepatitis for all patients aged 18 and over and those with ongoing risk factors. Mickey Inquiry Pt receiving controlled substance: No Vital Signs: 04/22/24 17:36 04/22/24 17:42 04/22/24 18:01 Temperature 98.4 F Temperature Source Oral Pulse Rate 77 81 Pulse Rate [Right Brachial] 74 Respiratory Rate 18 Blood Pressure 137/64 101/52 L Blood Pressure [Right Arm] 137/64 Blood Pressure Mean 78 Blood Pressure Mean [Right Arm] 88 Blood Pressure Source [Right Arm] Automatic Cuff Blood Pressure Position [Right Arm] Sitting 02 Sat by Pulse Oximetry 99 99 98 Oxygen Delivery Method Room Air Room Air Room Air 04/22/24 18:30 04/22/24 19:03 Temperature 97.8 F Temperature Source Pulse Rate 76 700 H Pulse Rate [Right Brachial] Respiratory Rate 18 Blood Pressure 90/58 L 100/57 L Blood Pressure [Right Arm] Blood Pressure Mean 68 Blood Pressure Mean [Right Arm] Blood Pressure Source [Right Arm] Blood Pressure Position [Right Arm] 02 Sat by Pulse Oximetry 98 Oxygen Delivery Method Room Air Lab Data Lab results reviewed: Yes I reviewed the patient's lab results. Orders (Tests/Meds): ED MEDICATIONS Discontinued Medications Generic Name Dose Route Start Last Admin Trade Name Freq PRN Reason Stop Dose Admin Acetaminophen 1,000 mg 04/22/24 17:46 04/22/24 17:54 Acetaminophen 500mg Tab PO 04/22/24 17:47 1,000 mg ONCE ONE Administration Ibuprofen 800 mg 04/22/24 17:46 04/22/24 17:54 Ibuprofen 400 Mg Tablet PO 04/22/24 17:47 800 mg ONCE ONE Administration ORDERS Category Date Time Status Foot XR right minimum 3 views [XR foot RT min 3V] Stat Exams 04/22/24 17:45 Completed Medical Decision Narrative: In summary, this patient is a 48-year-old female presenting to the Emergency Department for evaluation of right foot pain after a mechanical ground-level fall. Differential diagnoses considered include but are not limited to, contusion, strain/sprain, neurovascular injury. Ruling out the most morbid conditions drove assessment. On exam, the patient is very well-appearing. She has tenderness palpation of the plantar aspect of her right midfoot but no other notable injuries on clinical exam. She is neurovascularly intact distally without obvious deformity. Workup included x-rays of the right foot. She was given oral Tylenol and ibuprofen for symptomatic improvement of pain. I independently interpreted x-ray of the foot prior to the radiologist read and noted no obvious acute fracture at the patient's site of pain. Please see their read for final interpretation. They did note irregularity of the navicular bone which could be accessory navicular bone, however given the patient's pain and injury, we will give a hard soled shoe just in case. Will have her follow-up closely with podiatry. She was given strict return precautions and instruction for supportive management. She was discharged after all questions were answered. Critical Care Critical Care Time Critical Care Time: No
[2024-04-22] MEDS: ACETAMINOPHEN 500MG TAB 1000 MG PO (17:54)
[2024-04-22] MEDS: IBUPROFEN 400 MG TABLET 800 MG PO (17:54)
--- OUTSIDE RECORDS SUMMARY | 2024-04-22 17:58 | XMS_ITS | Clinical Summary ---
Author Organization [facility] Address [address] [place] [address] Care Team Providers Care Hogshead Hand Name Role Phone Jake De La Cruz DO Primary Care Provider Allergies Active Allergy Reactions Criticality Noted Date Comments Varenicline Anaphylaxis High 02/10/2016 THROAT SWELLING, RASH ON BACK OF NECK Medications Divalproex Sodium (DEPAKOTE SPRINKLE) 125 MG capsule Take 125 mg by mouth 2 (two) times a day. Active risperiDONE (RisperDAL) 0.5 MG tablet Take 0.5 mg by mouth daily. Active gabapentin (NEURONTIN) 600 MG tablet Take 600 mg by mouth 2 (two) times a day. Active ALPRAZolam (XANAX) 0.5 MG tablet Take 0.5 mg by mouth daily. Active hydrochlorothiaz lenore (HYDRODIURIL) 25 MG tablet Take 25 mg by mouth daily. Active citalopram (CeleXA) 40 MG tablet Take 40 mg by mouth daily. Active atorvastatin (LIPITOR) 40 MG tablet Take 40 mg by mouth daily. Active oxybutynin (DITROPAN) 5 MG tablet Take 5 mg by mouth daily. Active Social History Tobacco Use Types Packs/Day Years Used Date Smoking Tobacco: Every Day Cigarettes 2 23 Electronic Cigarette Smokeless Tobacco: Never Comments:DOWN TO 7-8 CIGARET MARTHA PER DAY X 1 MONTH , USING ECIG WITH NO NICOTINE Alcohol Use Standard Drinks/Week Comments No 0 (1 standard drink = 0.6 oz pur e alcohol) Abuse Screen Answer Date Recorded Unsafe at Home or Work/School Not on file Feels Threatened by Someone? Not on file 03/2023 Does Anyone Keep You from Co ntacting Others or Doint Things Outside the Home? Not on file 03/08/2023 Physical Sign of Abuse Present Not on file 1 Housing Stability Answer Date Recorded Current Living Arrangements Not on file 02/26 Potentially Unsafe Housing Conditions Not on katalina e 03/08/2023 Family and Community Support Answer Blul e Recorded Help with Day-to-Day Activities Not on file 03/08/2023 Lonely or Isolated Not on file 03/08/2023 Employment Answer Date Recorded Do you want help finding or keeping work or a ruma b? Not on file 03/08/2023 Disabilities Answer Date Recorded Concentrating, Remembering, or Making Decisions Difficulty Not on file 03/08/2023 Doing Errands Independently Difficulty Not on fi le 03/08/2023 Education Answer Date Recorded Help with school or training? Not on file Preferred Language Not on file 03/08/2023 Comments No Sex and Gender Information Value Date Recorded Sex Assigned at Not on file Legal Sex Female 1:56 PM EDT Gender Identity Not on file Sexual Orientation Not on file Plan of Treatment Health Maintenance Due Date Last Done Comments ANNUAL PHYSICAL 1977 Annual Gynecologic Pelvic and Breast Exam 1977 COLOGUARD 1977 COLON CANCER SCREENING 5 YEAR SIGMOIDOSCOPY 1977 COLONOSCOPY [address] SCREENING [address] COLONOGRAPHY 1977 FECAL OCCULT BLOOD TEST 1977 FIT Testing (1 year) 1977 HEPATITIS C SCREENING 1977 Pneumococcal Vaccine 0-64 (1 of 2 - PCV) 1983 TDAP/TD VACCINES (1 - Tdap) 1996 MAMMOGRAM 2017 INFLUENZA VACCINE 12/28/2023 COVID-19 Vaccine (1 - season) 2024 Insurance [employer] [facility] Care Teams Hogshead Hand Relationship Specialty Start Date End Date Jake De La Cruz DO [address] [place] [id number] PCP - General Family Medicine 02/09/16
[2024-04-22 18:01] VITALS: BP 101/52; PULSE 81; O2SAT 98
[2024-04-22 18:30] VITALS: BP 90/58; PULSE 76; O2SAT 98
[2024-04-22 19:03] VITALS: BP 100/57; PULSE 700; RESP 18; TEMP 36.6
== END 2024-04-22 19:05 | disposition home or self-care (01) ==
PROVIDERS: Emergency Provider Emergency Medicine
DX: Q74.2 Other congenital malformations of lower limb(s), including pelvic girdle (principal); M79.671 Pain in right foot; W01.198A Fall on same level from slipping, tripping and stumbling with subsequent striking against other object, initial encounter; Y93.89 Activity, other specified; Y92.512 Supermarket, store or market as the place of occurrence of the external cause
CPT/HCPCS: 73630; 99283

== ENCOUNTER 2024-05-25 17:22 | Emergency (ER) | payer OTHER, SELFPAY ==
[2024-05-25 17:43] VITALS: BP 121/65; PULSE 74; RESP 18; TEMP 36.8; O2SAT 100; BMI 52.1
--- NOTE | 2024-05-25 17:43 | ED_ITS ---
Discharge Plan Disposition Patient Disposition: Home, Self-Care Condition: Good Prescriptions Prescriptions: New ondansetron 4 mg Tablet,Disintegrating 4 mg PO Q8H PRN (Reason: Nausea) Qty: 12 0RF Referrals Follow up/Referrals: Sharri Vera APRN [Primary Care Provider] - See instructions Activity Restrictions/Add. Instructions Additional Instructions/Restrictions: Drink plenty of fluids. Take tylenol or ibuprofen for pain or fever. Take the medications as directed. Follow up with your regular doctor. GO TO THE ER FOR ANY WORSENING SYMPTOMS Clinical Impressions Clinical Impression: Acute viral syndrome, Gastroenteritis Stand Alone Forms Stand Alone Forms: Work/School Release Instructions Patient Instructions: Viral Gastroenteritis, DI for Viral Gastroenteritis -- Adult, Ondansetron Print Language Print Language: Portuguese Discharge ED Provider: Ladarius Vargas [facility] General Stated complaint: ZAVALA, nausea Time Seen by Provider: 05/25/24 17:43 Related Data Previous Rx's ?Medication ?Instructions ?Recorded ondansetron 4 mg disintegrating 4 mg PO Q8H PRN Nausea #12 tabs 05/25/24 tablet Allergies Allergy/AdvReac Type Severity Reaction Status Date / Time varenicline (From Chantix) Allergy Anaphylaxis Verified 05/25/24 17:47 [facility] Disclaimer: The information contained in this section may have been updated after the patient was seen, as this information can be updated by other users. 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 current occupational exposures/hazards: No caffeine: Yes ROS Obtained: Yes All systems reviewed & no additional complaints except as documented Constitutional Constitutional: Denies chills, Denies fever(s) and Reports poor appetite ENT Ears, Nose, Mouth, and Throat: Denies dizziness and Denies sore throat Cardiovascular Cardiovascular: Denies dyspnea Respiratory Respiratory: Denies chest congestion, Denies cough and Denies dyspnea Gastrointestinal Gastrointestingal: Reports as per HPI Genitourinary Female Genitourinary: Denies difficulty voiding, Denies dysuria, Denies hematuria, Denies urinary frequency, Denies urinary incontinence, Denies urinary hesitancy and Denies urinary urgency Musculoskeletal Musculoskeletal: Denies arthralgias Integumentary/Breasts Skin/Breast: Denies rash Neurologic Neurologic: Denies dizziness Physical Exam General General appearance: alert and in no apparent distress Head Head exam: atraumatic and normocephalic Eye Eye exam: Present normal appearance, PERRL and EOMI ENT ENT exam: Present normal exam, normal oropharynx, mucous membranes moist, TM's normal bilaterally and normal external ear exam Neck Neck exam: Present normal inspection, full ROM and trachea midline; Absent tenderness, meningismus or lymphadenopathy Chest Chest inspection: Present normal inspection and symmetric chest wall rise; Absent tenderness, rash or abscess Respiratory Respiratory exam: Present normal lung sounds bilaterally; Absent respiratory distress, wheezes or stridor Cardiovascular Cardiovascular exam: Present regular rate and normal rhythm; Absent irregular rhythm, systolic murmur, diastolic murmur or JVD Abdominal Exam Abdominal exam: Present soft and hyperactive bowel sounds; Absent distention, tenderness, guarding, rebound, rigidity, psoas sign, obturator sign, heel tap sign, Andujar's sign, Rovsing's sign or tenderness at McBurney's Point Extremities Exam Extremities exam: Present normal inspection and full ROM; Absent tenderness Back Exam Back exam: Present normal inspection and full ROM; Absent tenderness, CVA tenderness (R) or CVA tenderness (L) Neurological Exam Neurological exam: Present alert, oriented X3 and CN II-XII intact Psychiatric Psychiatric exam: Present normal affect and normal mood Skin Skin exam: Present warm, dry, intact and normal color Lymphatic Lymphatic Findings: no adenopathy Medical Decision Making Medical Records Medical records reviewed: No I reviewed the patient's medical records. Screening: Per USPSTF and CDC recommendations, given the prevalence of disease in our region, it is our hospital?s policy to screen for HIV and viral Hepatitis for all patients aged 18 and over and those with ongoing risk factors. Mickey Inquiry Pt receiving controlled substance: No
[2024-05-25 17:56] LABS: UTC Influenza A Antigen Negative (Negative); UTC Influenza B Antigen Negative (Negative)
[2024-05-25] MEDS: ONDANSETRON 4MG ODT 4 MG SL (18:45)
[2024-05-25] MEDS: IBUPROFEN 800 MG TABLET PO (18:49)
[2024-05-25 19:03] VITALS: BP 121/65; PULSE 74; RESP 18; TEMP 36.8
[2024-05-25 20:10] LABS: Coronavirus 19, PCR Not Detected (NotDetected); Influenza A, PCR Not Detected (NotDetected); Influenza B, PCR Not Detected (NotDetected)
== END 2024-05-25 19:09 | disposition home or self-care (01) ==
PROVIDERS: Emergency Provider Nurse Practitioner Family; PCP Nurse Practitioner Family
DX: K52.9 Noninfective gastroenteritis and colitis, unspecified (principal); B34.9 Viral infection, unspecified; Z11.52 Encounter for screening for COVID-19
CPT/HCPCS: 87636; 87804; 99213; G0381; Q0162

== ENCOUNTER 2024-07-04 09:10 | Outpatient (CLI) | payer OTHER, SELFPAY ==
[2024-07-04 19:21] LABS: Basophils % 0.4 % (0.1-2.0); Eosinophils # 0.1 K/mm3 (0.0-0.4); Eosinophils % 1.1 % (0.1-12.0); Hematocrit 46.9 % (37.0-47.0); Hemoglobin 14.8 g/dL (12.2-16.2); Lymphocytes # 3.2 K/mm3 (0.7-4.5); Lymphocytes % 29.5 % (10-50); Mean Corpuscular HGB Conc 31.6 g/dL (31.8-35.4); Mean Corpuscular Hemoglobin 28.8 pg (27.0-31.2); Mean Corpuscular Volume 91.2 fl (81-99); Mean Platelet Volume 10.6 fl (7.4-10.4); Monocytes # 0.6 K/mm3 (0.1-1.0); Monocytes % 5.8 % (1.7-9.3); Neutrophils # 6.9 K/mm3 (1.8-7.8); Neutrophils % 62.7 % (37.0-80.0); Platelet Count 295 K/mm3 (142-424); Red Blood Count 5.14 M/mm3 (4.20-5.40); Red Cell Distribution Width 14.6 % (11.5-17.5); White Blood Count 10.9 K/mm3 (4.8-10.8)
[2024-07-04 20:03] LABS: Chol/HDL Ratio 6.9 (1-3.5); Cholesterol 192 mg/dl (140-200); HDL Cholesterol 28 mg/dl (40-60); Triglycerides 224 mg/dl (30-150); VLDL Cholesterol 45 mg/dL (0-40)
[2024-07-04 20:15] LABS: Direct LDL Cholesterol 117.02 mg/dL (100-129)
[2024-07-04 20:17] LABS: 25-OH Vitamin D, Total < 12.8 ng/mL (30-100)
[2024-07-04 21:38] LABS: Hepatitis C Ab Qual. W/ RFX NEGATIVE (Negative)
[2024-07-04 22:50] LABS: HIV Combo NEGATIVE (Negative)
[2024-07-05 11:26] LABS: Chloride 104 mmol/L (98-107)
[2024-07-05 11:27] LABS: Albumin Level 4.3 g/dl (3.5-5.0); Potassium 4.7 mmoL/L (3.5-5.1); Sodium 138 mmol/L (136-145)
[2024-07-05 11:29] LABS: Blood Urea Nitrogen 7 mg/dl (7-17); Estimated Glomerular Filt Rate 90 ml/min (>60); GFR (African American) 109 ML/MIN (>60)
[2024-07-05 11:30] LABS: Alanine Aminotransferase 19 U/L (12-78); Albumin/Globulin Ratio 1.8 (1.1-1.8); Alkaline Phosphatase 113 U/L (38-126); Anion Gap 13.7 mEq/L (5-15); Aspartate Amino Transferase 23 U/L (14-36); Bilirubin,Total 0.3 mg/dl (0.2-1.3); Calcium 9.5 mg/dl (8.4-10.2); Carbon Dioxide 25 mmol/L (22.0-30.0); Globulin 2.4 g/dL (1.3-3.2); Glucose 89 mg/dl (74-100); Total Protein,Serum 6.7 g/dl (6.3-8.2)
== END 2024-07-04 23:59 | disposition home or self-care (01) ==
LOC: LAB.DROPOF 07-05 12:44
PROVIDERS: PCP Family Medicine; Visit Provider Family Medicine
DX: E78.5 Hyperlipidemia, unspecified (principal); R53.83 Other fatigue; Z11.59 Encounter for screening for other viral diseases; Z11.4 Encounter for screening for human immunodeficiency virus [HIV]; E66.9 Obesity, unspecified; E55.9 Vitamin D deficiency, unspecified
CPT/HCPCS: 80053; 80061; 82306; 84443; 85025; 86803; 87389

== ENCOUNTER 2024-11-01 19:39 | Emergency (ER) | payer OTHER, SELFPAY ==
[2024-11-01] VITALS (8 sets, daily range): BP systolic 99–131; BP diastolic 50–72; PULSE 71–85; RESP 16–18; TEMP 36.8; O2SAT 93–97; BMI 51.7
--- OUTSIDE RECORDS SUMMARY | 2024-11-01 19:55 | XMS_ITS | Clinical Summary ---
Author Organization [facility] Address [address] [place] [address] Phone Care Team Providers Care Elevator Examiner Name Role Phone Sera Cortes DPM Unavailable Unav Joelle Sanchez MD Unavailable [phone] Allergies Active Allergy Reactions Criticality Noted Date Comments Varenicline Hives,Shortness Of Breath,Swelling,Anaphyla xis High 08/14/2014 Chantix patch THROAT SWELLING, RASH ON BACK OF NECK Medications * This document contains information received from the source organization and may not represent a complete record from that organization. divalproex (DEPAKOTE) 250 mg Oral Tablet, Delayed Release (E.C.)Indication s:Bipolar disorder, current episode depressed, mild (HCC),BETH (generalized anxiety disorder) TAKE 1 TABLET BY MOUTH TWICE A DAY 60 Tablet 2 05/20/2021 Active hydrOXYzine (ATARAX) 25 mg Oral TabletIndication s:Generalized anxiety disorder Take 1 Tablet by mouth 3 times daily as needed for Itching or Anxiety. 90 Tablet 2 06/16/2021 Active vortioxetine (TRINTELLIX) 10 mg Oral tabletIndication s:Generalized anxiety disorder Take 1/2 tablet by mouth daily for 7 days, then 1 tablet daily thereafter. 30 Tablet 2 06/16/2021 Active albuterol (PROVENTIL HFA;VENTOLIN HFA) 90 mcg/actuation Inhl HFA Aerosol InhalerIndicatio ns:Viral pneumonia,Hypoxi a,Atypical pneumonia,Cough, persistent Inhale 2 Puffs into the lungs every 4 hours as needed for Wheezing. 18 g 5 08/03/2021 Active promethazine-dex tromethorphan (PROMETHAZINE-DM ) 6.25-15 mg/5 mL Oral SyrupIndications :Cough Take 5 mL by mouth every 6 hours as needed. 240 mL 10/13/2021 Active montelukast (SINGULAIR) 10 mg Oral TabletIndication s:Bronchitis due to tobacco use,Seasonal allergic rhinitis, unspecified trigger TAKE 1 TABLET BY MOUTH EVERY DAY AT NIGHT 30 Tablet 11 11/09/2021 Active fUROsemide (LASIX) 40 mg Oral Tablet TAKE 1 TABLET BY MOUTH EVERY DAY NEEDED 30 Tablet 01/03/2022 Active Active Problems Patient Care Coordination No te Formatting of this note migh t be different from the original. ctsa bzo 02/06/15 uds 09/13/17 jose alejandro 11/24/17 [id number] Problem Noted Date Diagnosed Date Bronchitis 04/19/2021 Varicose veins of leg with edema, bilateral 05/30 Cigarette nicotine dependenc e with nicotine-induced disorder 06/24/2019 Venous insufficiency of both lower extremities 0 06/24/2019 Leg pain, bilateral 06/24/2019 Morbid obesity with BMI of 50.0-59.9, adult 05/30 Pericardial effusion 11/25/2017 Severe episode of recurrent major depressive disorder, without psychotic features 2016 BETH (generalized anxiety disorder) 2016 Essential hypertension 05/14/2014 Smoking 05/14/2014 Obesity 05/14/2014 Dyslipidemia 05/14/2014 Resolved Problems Problem Noted Date Diagnosed Date Resolved Date Palpitations 12/05/2014 2016 Pre-operative cardiovascular examination 05/14/2014 2016 Chest pain 05/14/2014 2016 Anxiety 05/14/2014 2016 Depression 05/14/2014 2016 Ventral hernia 05/01/2014 2016 Syncope 05/01/2014 2016 Lung nodule 09/13/2012 2016 Immunizations Immunization Administration Dates Next Due Influenza Vaccine Quadrivalent 02/19/2018 Influenza Vaccine Quadrivalent PF 02/23/2021, Influenza Vaccine, Unspecified Formulation 02/10 Moderna SARS-CoV-2 Vaccine 1 2+ Yrs (Light blue border) 05/07/2021,04/09/2021 PPD Test 03/30/2021,01/04/2019,06/15/2018 Rabies IM, Fibroblast Culture 11/25/2016 Surgical History Surgery Date Site/Laterality Comments CHOLECYSTECTOMY SECTION x 2 TONSILLECTOMY ADENOIDECTOMY COLPOSCOPY EYE SURGERY r. 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 Depression Endometriosis Pneumonia Shortness of breath Heart abnormality Mitral valve p rolapse Hypertension Chiari malformation type I (HCC) Family History Medical History Relation Name Comments Cancer Father Lung Ca Emphysema Father Breast Cancer Mother Cancer Mother Breast Diabetes Mother Heart Disease Mother High Blood Pressure Mother High Cholesterol Mother Colon Cancer Neg Hx Relation Name Status Comments Father Mother Alive Social History Tobacco Use Types Packs/Day Years Used Date Smoking Tobacco: Every Day Cigarettes 2 34.4 Started: 05/29/1990 Smokeless Tobacco: Never Tobacco Cessation:Ready to Q uit: No; Counseling Given: No Alcohol Use Standard Drinks/Week Comments No 0 (1 standard drink = 0.6 oz pur e alcohol) Overall Financial Resource Strain (CARDIA) Answe r Date Recorded How hard is it for you to pa y for the very basics like food, housing, medical care, and heating? Not very hard 04/23/2021 PHQ-2 Answer Date Recorded PHQ-2 Total Score 0 09/07/2021 [facility] [place] of Occupat ional Health - Occupational Stress Questionnaire Answer Date Recorded Do you feel stress - tense, restless, nervous, or anxious, or unable to sleep at night because your mind is troubled all the time - these days? Very much 04/23/2021 Exercise Vital Sign Answer Date Recorde d On average, how many days pe r week do you engage in moderate to strenuous exercise (like a brisk walk)? 0 days 04/23/2021 On average, how many minutes do you engage in exercise at this level? 0 min 04/23/2021 Hunger Vital Sign Answer Date Recorded Within the past 12 months, y ou worried that your food would run out before you got the money to buy more. Never true 04/23/20 21 Within the past 12 months, t he food you bought just didn't last and you didn't have money to get more. Never true 04/23/2021 PRAPARE - Transportation Answer Date Re corded In the past 12 months, has l ack of transportation kept you from medical appointments or from getting medications? No 03/30 In the past 12 months, has l ack of transportation kept you from meetings, work, or from getting things needed for daily living? No 04/23/2021 Comments No Sex and Gender Information Value Date Recorded Sex Assigned at Not on file Legal Sex Female 4:24 PM EDT Gender Identity Not on file Sexual Orientation Not on file Obstetrics History Last Filed Vital Signs Vital Sign Reading Time Taken Comments Blood Pressure 101/60 12/24/2021 9:18 AM EDT Pulse 56 12/24/2021 9:18 AM EDT Temperature 36.6 C (97.8 F) 12/24/2021 7:24 AM EDT Respiratory Rate 18 12/24/2021 9:18 AM EDT Oxygen Saturation 98% 12/24/2021 9:18 AM EDT Inhaled Oxygen Concentration - - Weight 121.7 kg (268 lb 4.8 oz) 12/24/2021 7:24 AM EDT Height 152.4 cm (5') 12/24/2021 7:24 AM EDT Body Mass Index 52.4 12/24/2021 7:24 AM EDT Plan of Treatment Health Maintenance Due Date Last Done Comments DTaP/TDaP/Td (1 - Tdap) 1996 Hepatitis B Vaccine (1 of 3 - 19+ 3-dose series) 1996 Pneumococcal Vaccine 0-49 (1 of 2 - PCV) 1996 HPV/Pap Cotest 2007 Annual Wellness Exam 12/06/2015 12/05/2014 (Postpone d) Cervical Cancer Screening 02/04/2017 Pap Smear 02/04/2017 02/04/2014 (Prev iously completed) Breast Cancer Screening 09/28/2019 09/27/2017 Cologuard 2022 FIT 2022 Sigmoidoscopy 2022 Virtual Colonography 2022 COVID-19 Vaccine ( season) 2024 05/07/2021, 04/09/2021 Colon Cancer Screening 09/25/2024 Colonoscopy 09/25/2024 09/25/2014, 05/29 (Postponed) Influenza Vaccine (Season Ended) 2025 02/23/2021, 02/10/2019, 01/22/2019, Additional history exists Meningococcal B Vaccine Aged Out No l onger eligible based on patient's age to complete this topic Goals Goal Patient Goal Type Associated Problems Recent Progress Patient-Stated? Author Blood Pressure < 140/90 Blood Pressure 101/60(2021 9:18 AM EDT) No Flora Hendrix RMA Maintain a healthy diet, exercise regularly and maintain an ideal body weight General No Laila Ibarra LPN Stay Tobacco Free Lifestyle On track( 021 2:36 PM EST) No Laila Ibarra LPN Procedures Procedure Name Priority Date/Time Associated Diagnosis Comments MM MAMMO DIGITAL DIAGNOSTIC W CAD BILAT Routine 09/27/2017 8:45 AM EDT Left breast mass GMED COLONOSCOPY Routine 09/25/2014 2:00 PM EDT from Last 3 Months or Most Recently Relevant to Health Maintenance Results * MM MAMMO DIGITAL DIAGNOSTIC W CAD BILAT (09/27/2017 8:45 AM EDT) Anatomical Region Laterality Modality Breast Bilateral Mammography 09/27/2017 11:0 6 AM EDT Impressions 09/27/2017 11:40 AM EDT : Incomplete-need additional imaging evaluation ([id number]) ~ RECOMMENDATION: Ultrasound of the left breast. This ultrasound examination was performed on 09-27-17 and reported separately. ~ DISCLAIMER * Any patient with a palpable abnormality, unexplained by breast imaging, should be managed on clinical basis by the attending physician. * Breast imaging has a false negative rate of 15%. * The patient was notified by mail of the results of this examination. *The patient's information was entered into a reminder system with a target due date for the next mammogram. The mammogram was reviewed by a Radiologist and CAD. Narrative 09/27/2017 11:40 AM EDT Procedure:MM MAMMO DIGITAL DIAGNOSTIC W CAD BILAT ~ Reason for exam: clinical finding. ~ MM MAMMO DIGITAL DIAG CAD BILAT Bilateral CC and MLO view(s) were taken. There are scattered fibroglandular densities. No focal mass. No suspicious calcifications. No previous studies for comparison. ~ us Viral De La Cruz V, DO IMG MAMMOGRAPHY ORDERABLES Fin al Result * GMED COLONOSCOPY (09/25/2014 2:00 PM EDT) 09/25/2014 2:00 PM EDT Impressions [facility] - 09/25/2014 4:21 PM EDT Polyp (3.5 cm) in the proximal ascending colon. (Injection, Polypectomy). Polyp (2.5 mm) in the transverse colon. (Injection, Polypectomy). Polyp (12 mm) in the descending colon. (Polypectomy). Polyp (12 mm) in the colon. (Polypectomy). Internal hemorrhoids. In the absence of any other plausible explanation, the patient's bleeding is in all likelihood hemorrhoidal. . Plan: Colonoscopy in 1 year. Follow-up office visit in 2-3 weeks This section is an excerpt of the full report. us Enrico Flemign MD GI PROCEDURE ORDERABLES Final R esult Performing Organization Address City/State/[facility] Co de Phone Number [id number] [address] [place] [address] from Last 3 Months or Most Recently Relevant to Health Maintenance Insurance [employer] [facility] [place] [address] [facility] [address] [facility] [address] Advance Directives For more information, please contact: [phone] * Full Code (Latest Code Status on File) Date Activated Date Inactivated Comments 04/19/2021 3:01 PM 04/21/2021 6:14 PM * Full Code Date Activated Date Inactivated Comments 07/18/2014 10:39 AM 07/20/2014 4:40 PM Care Teams Elevator Examiner Relationship Specialty Start Date End Date Sera Cortes DPM Computer System Validation Specialist-Surgery, Foot & Ankle 04/28/15 Joelle Heard MD [address] [facility] [place] [address] Medical Oncologist Internal Medicine-Hematology and Oncology 09/07/20
--- OUTSIDE RECORDS SUMMARY | 2024-11-01 19:56 | XMS_ITS | Encounter Summary ---
Author Organization [place] [address] Care Team Providers Care Motorcycle Deliverer Name Role Phone Jono Garcia DO, Viral Primary Care Provider SebastianSera crane DPM Unavailable Unav ailable Payton Deleon BS, COS Unavailable Unavail able Joelle Heard MD Unavailable [phone] LeifMichael ching DO Primary Care Provider [phone] Elizabeth Urena HEEL SEAT POUNDER Unavailable Unavail able Encounter Details Date Type Department Care Team (Late st Contact Info) Description 09/25/2014 Orders Only SEP Gastro [facility] [address] [phone] Enrico Fleming MD Social History Tobacco Use Types Packs/Day Years Used Date Smoking Tobacco: Every Day Cigarettes 0.5 20 Smokeless Tobacco: Never Comments:cut down three week s ago to 2 cig per day Alcohol Use Standard Drinks/Week Comments No 0 (1 standard drink = 0.6 oz pur e alcohol) Comments No Sex and Gender Information Value Date Recorded Sex Assigned at Not on file Legal Sex Female 4:24 PM EDT Gender Identity Not on file Sexual Orientation Not on file documented as of this encounter Plan of Treatment Not on file documented as of this encounter Procedures Procedure Name Priority Date/Time Associated Diagnosis Comments GMED COLONOSCOPY Routine 09/25/2014 2:00 PM EDT documented in this encounter Results * GMED COLONOSCOPY (09/25/2014 2:00 PM EDT) 09/25/2014 2:00 PM EDT Impressions [facility] - 09/25/2014 4:21 PM EDT Polyp [...] is an excerpt of the full report. Enrico Fleming MD GI PROCEDURE ORDERABLES Final R esult Performing Organization Address City/State/[facility] Co de Phone Number [facility] [address] [place] [address] documented in this encounter Visit Diagnoses Not on filedocumented in this encounter Additional Health Concerns Infection Onset Date Last Indicated Resolved Time R/O COVID-19 04/17/2021 04/17/2021 04/17/2021 10:1 4 PM EST R/O COVID-19 04/19/2021 04/19/2021 04/19/2021 6:41 AM EST documented as of this encounter Care Teams Motorcycle Deliverer Relationship Specialty Start Date End Date Jake De La Cruz DO [address] [place] [id number] PCP - General Family Medicine 04/09/14 02/18/21 Michael Yadav DO [address] [place] [id number] PCP - General Family Medicine 02/19/21 04/22/24 Sera Cortes DPM [address] [place] [phone] Frame Feeder-Surgery, Foot & Ankle 04/28/15 Payton Deleon, BS, COS Case Flanging Operator 06/27/19 07/17/19 Joelle Heard MD [address] [place] [address] [place] [address] Medical Oncologist Internal Medicine-Hematology and Oncology 09/07/20 Elizabeth Urena, [place] Spooling Machine Operator 06/17/21 07/21/21 documented as of this encounter
--- NOTE | 2024-11-01 20:02 | XR_ITS ---
PROCEDURE INFORMATION: Exam: XR Chest Exam date and time: 11/01/2024 8:08 PM Age: 49 years old Clinical indication: Shortness of breath; Additional info: Short of breath TECHNIQUE: Imaging protocol: Radiologic exam of the chest. Views: 1 view. Total images: 1 COMPARISON: CR XR CHEST PORTABLE 04/24/2021 9:20 AM FINDINGS: Lungs: Unremarkable. No consolidation. No pulmonary vascular congestion or edema. Pleural spaces: Unremarkable. No pleural effusion. No pneumothorax. Heart/Mediastinum: Unremarkable. No cardiomegaly. No mediastinal widening or hilar enlargement. Bones/joints: Unremarkable. IMPRESSION: No radiographically acute cardiopulmonary process.
--- NOTE | 2024-11-01 20:07 | ED_ITS ---
<Statement entered by Arin Cali MD - 11/01/24 22:59> I was consulted by the AFTMATA, and we discussed the complexity of the problems being addressed. I approved the treatment and management plan for this patient's care in the emergency department, thus performing a substantive portion of the medical decision making. Arin Cali MD, LEONCIO, FACEP Discharge Plan Disposition Patient Disposition: Home, Self-Care Prescriptions Prescriptions: New cephalexin 500 mg capsule 500 mg PO BID 10 Days Qty: 20 0RF potassium chloride 10 mEq capsule, extended release 20 meq PO DAILY Qty: 7 0RF furosemide [Lasix] 20 mg tablet 20 mg PO DAILY PRN (Reason: edema) Qty: 7 0RF No Action varenicline tartrate [Chantix Starting Month Box] 0.5 mg (11)- 1 mg (42) tablets,dose pack See Rx Instructions PO PER PKG DIR Qty: 53 0RF Rx Instructions: PO PER PKG DIR divalproex [Depakote] 250 mg tablet,delayed release (DR/EC) 250 mg PO TID Qty: 90 3RF ipratropium-albuterol 0.5 mg-3 mg(2.5 mg base)/3 mL solution for nebulization 3 ml inhalation QID PRN (Reason: shortness of breath or wheezing) Qty: 90 0RF cephalexin 500 mg capsule 500 mg PO TID Qty: 15 0RF mupirocin 2 % ointment 1 applic topical TID Qty: 15 0RF Rx Instructions: apply to wound on finger cholecalciferol (vitamin D3) 50 mcg (2,000 unit) capsule 50 mcg PO DAILY Qty: 90 1RF ibuprofen 800 mg tablet 800 mg PO TID Qty: 90 2RF Referrals Follow up/Referrals: Morris Gallagher MD [Primary Care Provider, Family Practice] - See instructions Clinical Impressions Clinical Impression: Peripheral edema, Cellulitis Instructions Patient Instructions: Cellulitis, Edema Print Language Print Language: Upper Sorbian Discharge ED Provider: Arin Cali General Adult [facility] General Chief complaint: PAIN Stated complaint: left leg red, swollen, painful with hard spot Time Seen by Provider: 11/01/24 19:55 Mode of Arrival: Ambulatory Source of Information: Patient Description of Symptoms (Recalled from ER Triage Doc. by RN): Leg swelling Pt presents to the ED with c/o bilateral lower extremity swelling and redness X 2 days. Pt denies injury. History of Present Illness HPI narrative: This is a 49-year-old female presents to the ED today for complaint of bilateral lower extremity swelling, erythema for the past 2 days. She denies any injury to both legs. She does have a history of fluid around her heart she states this happened in 2018. She does have history of mitral valve prolapse and anxiety. She says that she has been put on Lasix in the past but taken back off by her PCP. She is a smoker and has COPD. She says she wakes up with the edema but it does not go away during the day. She is no more short of breath than she is normally. She denies recent fevers, chills, nausea or vomiting. She does say that both legs burn. Related Data Previous Rx's ?Medication ?Instructions ?Recorded divalproex 250 mg tablet,delayed 250 mg PO TID #90 tab s 07/05/24 release (Depakote) varenicline tartrate 0.5 mg (11)-1 See Rx Instructions PO PER PKG DIR 07/05/24 mg (42) tablets in a dose pack #53 tabs (Chantix Starting Month Box) ipratropium 0.5 mg-albuterol 3 mg 3 ml inhalation QID PRN shortness 09/05/24 (2.5 mg base)/3 mL nebulization of breath or wheezing #90 mL soln cephalexin 500 mg capsule 500 mg PO TID #15 caps 10/03 cholecalciferol (vitamin D3) 50 50 mcg PO DAILY #90 ca ps 10/03/24 mcg (2,000 unit) capsule mupirocin 2 % topical ointment 1 applic topical TID #1 5 grams 10/03/24 ibuprofen 800 mg tablet 800 mg PO TID #90 tabs 10/04 cephalexin 500 mg capsule 500 mg PO BID 10 days #20 ca ps 11/01/24 furosemide 20 mg tablet (Lasix) 20 mg PO DAILY PRN carmenza ma #7 tabs 11/01/24 potassium chloride 10 mEq 20 meq (2 x 10 mEq) PO DAILY #7 11/01/24 capsule,extended release caps Allergies Allergy/AdvReac Type Severity Reaction Status Date / Time nicotine patch AdvReac Mild Uncoded 09/10/24 10:52 PFSH PFSH Disclaimer: The information contained in this section may have been updated after the patient was seen, as this information can be updated by other users. Medical History (Updated 11/01/24 @ 21:27 by Jaja Mclean (ED), FACING SLITTER) Chronic fatigue Paronychia Screening for colon cancer Screening for cervical cancer Breast cancer screening by mammogram Peripheral edema Hyperlipidemia Morbid obesity with body mass index (BMI) of 50.0 to 59.9 in adult Overweight Tobacco use disorder Left knee pain Fatigue Weight gain Obesity Bipolar disorder Back pain Depression Anxiety Surgical History Hx of tonsillectomy Hx laparoscopic cholecystectomy H/O hernia repair History of section Social History Smoking Status: Current every day smoker tobacco type: cigarettes packs per day: 2 second hand exposure: No alcohol intake: never substance use type: denies use current occupational status: employed Travel in the last 8 weeks?: None household members: children housing: apartment 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 current occupational exposures/hazards: No caffeine: Yes Have you lived/traveled outside US in past 30 days?: No Contact w/someone who lives/traveled outside US past 30 days?: No Exposure to someone with infectious disease in past 14 days?: No Do you have a fever (greater than 100.4 F or 38 C)?: No Have you tested positive for COVID-19?: No Exposed to someone with COVID-19 in past 14 days?: No Do you have a sore throat?: No Do you have a cough?: No Do you have any weakness?: No Do you have any diarrhea?: No Are you experiencing any unusual bleeding?: No Do you have any muscle aches/pain?: No Do you have any abdominal pain?: No Are you experiencing loss of taste or smell?: No Other Medical History Have you received the Flu Vaccine for this season: Yes Have you received the Pneumonia Vaccine: No ROS Obtained: Yes Systems reviewed as appropriate & no additional complaints except as documented Constitutional Constitutional: Reports as per HPI Physical Exam General General appearance: alert Head Head exam: atraumatic and normocephalic Eye Eye exam: Present PERRL and EOMI ENT ENT exam: Present normal oropharynx and mucous membranes moist Neck Neck exam: Present full ROM and trachea midline Respiratory Respiratory exam: Present normal lung sounds bilaterally Cardiovascular Cardiovascular exam: Present regular rate, normal rhythm, normal heart sounds, +S1 and +S2 Extremities Exam Extremities exam: Present full ROM, tenderness, normal capillary refill and edema Neurological Exam Neurological exam: Present alert and oriented X3 Skin Skin exam: Present warm, dry, intact, erythema and other (Edema bilaterally) Medical Decision Making Medical Records Screening: Per USPSTF and CDC recommendations, given the prevalence of disease in our region, it is our hospital?s policy to screen for HIV and viral Hepatitis for all patients aged 18 and over and those with ongoing risk factors. Mickey Inquiry Pt receiving controlled substance: No Mickey was queried for this patient: No Vital Signs: 11/01/24 19:46 11/01/24 19:54 11/01/24 20:01 Pulse Rate 85 78 Pulse Rate [Right] 85 Respiratory Rate 16 Blood Pressure 118/60 102/54 L Blood Pressure [Right Arm] 118/60 Blood Pressure Mean 79 70 Blood Pressure Mean [Right Arm] 79 Blood Pressure Source [Right Arm] Automatic Cuff Blood Pressure Position [Right Arm] Sitting 02 Sat by Pulse Oximetry 95 97 96 Oxygen Delivery Method Room Air 11/01/24 20:15 11/01/24 20:30 11/01/24 21:00 Pulse Rate 77 78 77 Pulse Rate [Right] Respiratory Rate Blood Pressure 107/52 L 131/72 Blood Pressure [Right Arm] Blood Pressure Mean 68 91 Blood Pressure Mean [Right Arm] Blood Pressure Source [Right Arm] Blood Pressure Position [Right Arm] 02 Sat by Pulse Oximetry 93 L 93 L 94 L Oxygen Delivery Method Lab Data Lab Results 11/01/24 21:20: WBC 10.6, RBC 4.94, Hgb 14.1, Hct 42.7, MCV 86.4, MCH 28.5, MCHC 33.0, RDW 14.3, Plt Count 286, MPV 9.8, Neut % (Auto) 56.6, Lymph % (Auto) 35.1, Ramsey % (Auto) 6.0, Eos % (Auto) 1.6, Baso % (Auto) 0.3, Neut # (Auto) 6.0, Lymph # (Auto) 3.7, Ramsey # (Auto) 0.6, Eos # (Auto) 0.2, Baso # (Auto) 0.0, Sodium 138, Potassium 3.6, Chloride 106, Carbon Dioxide 29, Anion Gap 6.6, BUN 14, Creatinine 1.00, Estimated Creat Clear 50, Estimated GFR 59, Est GFR ( Amer) 72, Glucose 92, Calcium 8.9, Magnesium 1.9, Total Bilirubin 0.4, AST 24, ALT 15, Alkaline Phosphatase 94, Troponin I < 0.01, NT-Pro-B Natriuret Pep 62.8, Total Protein 7.3, Albumin 4.3, Globulin 3.0, Albumin/Globulin Ratio 1.4, Lipase 87 11/01/24 21:20 11/01/24 21:20 Orders (Tests/Meds): ORDERS Category Date Time Status Chest XR -- portable [XR chest portable] Stat Exams 11/01/24 20:02 Completed BNP [NT Pro Brain Natriuretic Pep.] Stat Lab 11/01/24 21:20 Completed CBC [Complete Blood Count Auto Diff] Stat Lab 11/01/24 21:20 Completed Comprehensive Metabolic Panel Stat Lab 11/01/24 21:20 Completed Lipase Stat Lab 11/01/24 21:20 Completed Magnesium Stat Lab 11/01/24 21:20 Completed Trop I [Troponin I] Stat Lab 11/01/24 21:20 Completed Troponin I Q3H Lab 11/01/24 23:15 Ordered Troponin I Q3H Lab 11/02/24 02:15 Ordered Medical Decision Narrative: patient is a 49-year-old female presenting to the emergency department for evaluation of bilateral lower extremity erythema and swelling that started today.. Patient is hemodynamically stable and nontoxic-appearing upon arrival, afebrile. Differential diagnosis includes cellulitis, CHF exacerbation, COPD, among others. Workup will be conducted with hematologic labs, specific imaging, provocative tests. Initial view of chest x-ray shows nothing acute. Radiology read also shows nothing acute. Initial labs shows normal white count and normal CBC. Still awaiting the chemistry panel. Chemistry panel was normal. BNP and troponin were negative. Patient will be sent home with Keflex and Lasix for swelling and redness. Patient will follow-up with PCP this week. Patient safe for discharge home. Critical Care Critical Care Time Critical Care Time: No
[2024-11-01 21:30] LABS: Basophils % 0.3 % (0.1-2.0); Eosinophils # 0.2 Kmm3 (0.0-0.4); Eosinophils % 1.6 % (0.1-12.0); Hematocrit 42.7 % (37.0-47.0); Hemoglobin 14.1 g/dL (12.2-16.2); Immature Granulocytes # 0.04 10^3uL; Immature Granulocytes % 0.4 %; Lymphocytes # 3.7 K/mm3 (0.7-4.5); Lymphocytes % 35.1 % (10-50); Mean Corpuscular Hemoglobin 28.5 pg (27.0-31.2); Mean Corpuscular Volume 86.4 fl (81-99); Mean Platelet Volume 9.8 fl (7.4-10.4); Monocytes # 0.6 K/mm3 (0.1-1.0); Neutrophils % 56.6 % (37.0-80.0); Nucleated Red Blood Cells # 0 10^3/uL; Nucleated Red Blood Cells % 0 %; Platelet Count 286 K/mm3 (142-424); Red Blood Count 4.94 M/mm3 (4.20-5.40); Red Cell Distribution Width 14.3 % (11.5-17.5); Red Cell Distribution Width-SD 45.2 fL; White Blood Count 10.6 K/mm3 (4.8-10.8)
[2024-11-01 21:40] LABS: Alanine Aminotransferase 15 U/L (12-78); Albumin Level 4.3 g/dl (3.5-5.0); Albumin/Globulin Ratio 1.4 (1.1-1.8); Alkaline Phosphatase 94 U/L (38-126); Anion Gap 6.6 mEq/L (5-15); Aspartate Amino Transferase 24 U/L (14-36); Bilirubin,Total 0.4 mg/dl (0.2-1.3); Blood Urea Nitrogen 14 mg/dl (7-17); Calcium 8.9 mg/dl (8.4-10.2); Carbon Dioxide 29 mmol/L (22.0-30.0); Chloride 106 mmol/L (98-107); Creatinine Clearance Estimated 50 mL/min (50-200); Estimated Glomerular Filt Rate 59 ml/min (>60); GFR (African American) 72 ML/MIN (>60); Glucose 92 mg/dl (74-100); Lipase 87 U/L (23-300); Magnesium 1.9 mg/dl (1.6-2.3); Potassium 3.6 mmoL/L (3.5-5.1); Sodium 138 mmol/L (136-145); Total Protein,Serum 7.3 g/dl (6.3-8.2)
[2024-11-01 21:52] LABS: NT Pro Brain Natriuretic Pep. 62.8 pg/mL (0-125)
[2024-11-01 21:53] LABS: Troponin I < 0.01 ng/ml (0.00-0.034)
== END 2024-11-01 22:07 | disposition home or self-care (01) ==
PROVIDERS: Nurse Practitioner; Emergency Provider Student in an Organized Health Care Education/Training Program; PCP Family Medicine
DX: L03.115 Cellulitis of right lower limb (principal); L03.116 Cellulitis of left lower limb; R60.0 Localized edema; J44.9 Chronic obstructive pulmonary disease, unspecified; F17.210 Nicotine dependence, cigarettes, uncomplicated
CPT/HCPCS: 71045; 80053; 83690; 83735; 83880; 84484; 85025; 99283

== ENCOUNTER 2024-11-06 07:11 | Outpatient (CLI) | payer OTHER, SELFPAY ==
--- NOTE | 2024-11-06 | CA_ITS ---
APPROVED REPORT Exam: Pharmacologic Technologist: Keisha Sawyer Ht: 5 ft 0 in Wt: 286 lbs BSA: 2.17 m2 HR: 68 bpm BP: 92/60 mmHg Stress Test Details Test: Lexiscan HR Resting HR: 68 bpm Max Heart Rate (APMHR): 173.388645 bpm Max HR Achieved: 87 bpm Target HR (85% APMHR): 147.042478 bpm % of APMHR: 50.29 Recovery HR: 74 bpm BP Resting BP: 92.0/60.0 mmHg Max BP: 123.0/63.0 mmHg Recovery BP: 108.0/45.0 mmHg ECG Resting ECG: Sinus rhythm. No ischemia or ectopy. Stress ECG Conclusion Symptoms: Mild shortness of air, nausea, with Lexiscan. Arrhythmisa/Ectopy: Lexiscan ST-T Changes: None Electronically signed by : Renu Jarrett MD 11/06/2024 13:06:10
--- OUTSIDE RECORDS SUMMARY | 2024-11-06 07:14 | XMS_ITS | Encounter Summary ---
Author [place] [address] Care Team Providers Care Door Framer Name Role Phone Jono Garcia DO, Viral Primary Care Provider [phone] SebastianSera crane DPM Unavailable Unav ailable Payton Deleon BS, COS Unavailable Unavail able Joelle Heard MD Unavailable [phone] LeifMichael ching DO Primary Care Provider [phone] Elizabeth Urena ROLL FORMING MACHINE SET UP OPERATOR Unavailable Unavail able Encounter Details Date Type Department Care Team (Late st Contact Info) Description 09/25/2014 Orders Only SEP Gastro [facility] [address] [id number] Enrico Fleming MD Social History [...] PM EDT) 09/25/2014 2:00 PM EDT Impressions [facility] - 09/25/2014 4:21 PM EDT [...] an excerpt of the full report. Enrico Flemign MD GI PROCEDURE ORDERABLES Final R esult Performing Organization Address City/State/[place] Co de Phone Number [facility] [address] [place] [address] documented in this encounter Visit Diagnoses Not on filedocumented in this encounter Additional Health Concerns Infection Onset Date Last Indicated Resolved Time R/O COVID-19 04/17/2021 04/17/2021 04/17/2021 10:1 4 PM EST R/O COVID-19 04/19/2021 04/19/2021 04/19/2021 6:41 AM EST documented as of this encounter Care Teams Door Framer Relationship Specialty Start Date End Date Jake De La Cruz DO [address] [place] [phone] PCP - General Family Medicine 04/09/14 02/18/21 Michael Yadav DO [address] [place] [id number] PCP - General Family Medicine 02/19/21 04/22/24 Sera Cortes DPM [address] [place] [phone] Crane Operator Cab-Surgery, Foot & Ankle 04/28/15 Payton Deleon, BS, COS Case Dye Expert 06/27/19 07/17/19 Joelle Heard MD [address] [place] [address] [place] [address] Medical Oncologist Internal Medicine-Hematology and Oncology 09/07/20 Elizabeth Urena, [place] Docketing Specialist 06/17/21 07/21/21 documented as of this encounter
--- OUTSIDE RECORDS SUMMARY | 2024-11-06 07:14 | XMS_ITS | Clinical Summary ---
Author Organization [facility] Address [address] [place] [address] Phone Care Team Providers Care Operations And Maintenance Manager Name Role Phone Sera Cortes DPM Unavailable Unav Joelle Sanchez MD Unavailable Allergies Active Allergy Reactions Criticality Noted Date [...] bzo 02/06/15 uds 09/13/17 jose alejandro 11/24/17 [id number] Problem Noted Date Diagnosed Date Bronchitis 04/19/2021 [...] Surgeon: Juan R Cam MD; Location: [facility] MAIN OR; Service: General Medical History Medical [...] Date Recorded PHQ-2 Total Score 0 09/07/2021 [facility] [place] of Occupat ional Health - Occupational Stress [...] AM EDT : Incomplete-need additional imaging evaluation ([id number]) ~ RECOMMENDATION: Ultrasound of the left breast. [...] PM EDT) 09/25/2014 2:00 PM EDT Impressions [facility] - 09/25/2014 4:21 PM EDT Polyp [...] excerpt of the full report. us Enrico Fleming MD GI PROCEDURE ORDERABLES Final R esult Performing Organization Address City/State/[facility] Co de Phone Number [facility] [address] [place] [address] from Last 3 Months or Most Recently Relevant to Health Maintenance Insurance [employer] [facility] [place] [address] [facility] [address] [facility] [address] Advance Directives For more information, please contact: [phone] * Full Code (Latest Code Status on File) Date Activated Date Inactivated Comments 04/19/2021 3:01 PM 04/21/2021 6:14 PM * Full Code Date Activated Date Inactivated Comments 07/18/2014 10:39 AM 07/20/2014 4:40 PM Care Teams Operations And Maintenance Manager Relationship Specialty Start Date End Date Sera Cortes DPM Student Ambassador-Surgery, Foot & Ankle 04/28/15 Joelle Heard MD [address] [facility] [place] [address] Medical Oncologist Internal Medicine-Hematology and Oncology 09/07/20
--- NOTE | 2024-11-06 07:30 | NM_ITS ---
APPROVED REPORT Exam: Nuclear Stress Test Indication: Chest pain, SOB, Fatigue, Tobacco use, Family history Patient Location: Outpatient Stress Tech: Keisha Sawyer NM Tech:Liz Jose, ARRT, RT (R)(N) Ht: 5 ft 0 in Wt: 285 lbs Bra Size: D HR: 67 bpm BP: 92/60 mmHg BSA: 2.17 m2 TID: 1.21 History: Chest pain, SOB, Fatigue, Tobacco use, Family history Procedure: Patient received 0.4 mg of intravenous Lexiscan, resting heart rate 67 bpm, resting blood pressure 92/60 mmHg, with Lexiscan maximum heart rate achieved was 101 bpm which is % of the maximum predicted heart rate and blood pressure was 123/63 mmHg. With Lexiscan, patient denied any complaint of chest pain. Cardiac Stress and Resting SPECT Images: Cardiac Stress and Resting SPECT images were obtained using technetium 99m Myoview 31.2 mCi stress and 10.54 mCi at rest. Raw images demonstrate significant soft tissue overlap of the cardiac borders. This may affect diagnostic interpretation of the study findings. Resting and stress imaging in supine positions demonstrate a large sized, moderate, fixed perfusion defect of the anterior LV wall. This is no longer visualized with prone stress imaging. Findings are suggestive of soft tissue attenuation. There is also increase in transient ischemic dilatation ratio (TID 1.21), suggestive of possible multivessel disease or balanced ischemia. Gated imaging demonstrates normal global and regional LV systolic function. LVEF is calculated at 56%. Conclusion: Soft tissue attenuation is present. Increase in transient ischemic dilatation ratio (TID 1.21), suggestive of possible multivessel disease or balanced ischemia. Gated imaging demonstrates normal global and regional LV systolic function. LVEF is calculated at 56%. In the setting of young age, normal LV systolic function, and TID on nuclear stress testing, further evaluation noninvasively with CCTA may be suggested prior to proceeding with invasive coronary angiography to rule out multivessel disease. Electronically signed by : Renu Jarrett MD 11/06/2024 13:05:06
[2024-11-06] MEDS: ISOTOPE MYOVIEW (PER STUDY) 1 DOSE IV (09:32)
[2024-11-06] MEDS: REGADENOSON 0.4MG/5ML SYRINGE 0.4 MG IV (09:32)
[2024-11-06] MEDS: SODIUM CHLORIDE 0.9% 10ML SYR (RAD ONLY) 10 ML IV ×2 (09:32)
--- NOTE | 2024-11-06 11:15 | CA_ITS ---
APPROVED REPORT EXAM: Comprehensive 2D, Doppler, and color-flow Echocardiogram Event Specialist Product Demonstrator: Ingrid Johnston CRT Ht: 5 ft 0 in Wt: 282lbs BSA: 2.16 BP: 100/50 mmHg Indications: edema 2D Dimensions LA Volume 28.00 mL LA Volume Index 12.70 mL/m2 (M/F) 16-34 M-Mode Dimensions RVDd 3.39 cm (0.9-2.6) LA Diam 3.71 cm (1.9-4.0) LVDd 4.00 cm (3.5-5.7) LVDs 2.75 cm (3.5-5.7) IVSd 1.71 cm (0.6-1.1) PWd 0.57 cm (0.6-1.1) EF (Teich) 59.60% FS 31.30% EDV (Teich) 70.00 mL TAPSE 1.84 (<1.7) ESV (Teich) 28.30 mL LV Diastology E Decel Time 173 (160-240 msec) E/A Ratio 0.85 MED A' 8.10 cm/s LAT A' 16.30 cm/s Aortic Valve AO Peak GR. 9.60 mmHg Mitral Valve MV E Max Alex. 82.0 (40-130 cm/s) MV A Velocity 97.0 (40-130 cm/s) E/A Ratio 0.85 MV PHT 51.0 ms Pulmonary Valve PV Peak Velocity 105.0 (50-150 cm/s) Tricuspid Valve TR P. Velocity 217.00 cm/s RAP Estimate 10.00 mmHg RVSP 28.80 mmHg Left Ventricle The left ventricle is normal size. The left ventricular systolic function is normal. The left ventricular ejection fraction is within the normal range. There is increased LV wall thickness. There is normal LV segmental wall motion. The left ventricular diastolic function is normal. LVEF is 55%. Right Ventricle The right ventricle is normal size. The right ventricular systolic function is normal. Atria The left atrium size is normal. The right atrium size is normal. There is no Doppler evidence of interatrial shunt. Aortic Valve Aortic valve opens well. There is no aortic valvular stenosis. No aortic regurgitation is present. Mitral Valve The mitral valve is normal in structure. No evidence of mitral valve stenosis. Trace mitral regurgitation. Tricuspid Valve Tricuspid valve is grossly normal in structure and function. Trace tricuspid regurgitation. There is insufficient TR jet to estimate RVSP. Pulmonic Valve The pulmonary valve is normal in structure. Trace pulmonic regurgitation. Great Vessels The aortic root is normal in size. IVC is normal in size and collapses >50% with inspiration. Pericardium There is no pericardial effusion. Other Information Study Quality: Fair Conclusion Normal biventricular systolic function. No significant valvular stenosis or regurgitation. Electronically signed by : Renu Jarrett MD 11/13/2024 00:22:16
--- NOTE | 2024-11-06 13:00 | CA_ITS ---
FINAL REPORT TECHNIQUE: Ultrasound images of the deep venous system were obtained from the left groin to the calf veins. CLINICAL HISTORY: PRIOR DVT,EDEMA,PAIN LLE FINDINGS: The deep venous system is normally compressible. Normal flow is identified. IMPRESSION: No evidence of left lower extremity DVT. Reviewed, Interpreted and Dictated by Aman Willett MD Transcribed by Elida Bridges Authenticated and . [facility]
== END 2024-11-06 23:59 | disposition home or self-care (01) ==
LOC: RAD 07:12
PROVIDERS: PCP Family Medicine; Visit Provider Family Medicine
DX: M79.662 Pain in left lower leg (principal); R53.83 Other fatigue; I20.9 Angina pectoris, unspecified; R06.02 Shortness of breath; R06.09 Other forms of dyspnea; R53.82 Chronic fatigue, unspecified; F17.200 Nicotine dependence, unspecified, uncomplicated; R60.9 Edema, unspecified; I07.1 Rheumatic tricuspid insufficiency; Z86.718 Personal history of other venous thrombosis and embolism; Z82.49 Family history of ischemic heart disease and other diseases of the circulatory system; E78.49 Other hyperlipidemia
CPT/HCPCS: 78452; 93017; 93018; 93306; 93971; A9502; J2785

== ENCOUNTER 2024-11-14 12:46 | Emergency (ER) | payer OTHER, SELFPAY ==
[2024-11-14] VITALS (10 sets, daily range): BP systolic 78–122; BP diastolic 46–80; PULSE 58–78; RESP 15–25; TEMP 36.9–37.1; O2SAT 95–100; BMI 54.6
--- NOTE | 2024-11-14 12:48 | ECG_ITS ---
APPROVED REPORT Exam: Resting ECG HR:78 bpm ECG Measurements Heart Rate 78 AXES ND 182 P 52 QRSd 93 QRS 70 QT 358 T 17 QTc 392 Conclusion SINUS RHYTHM INDETERMINATE AXIS LOW QRS VOLTAGE IN PRECORDIAL LEADS [QRS DEFLECTION < 1.0 mV IN CHEST LEADS] POSSIBLE ANTERIOR MYOCARDIAL INFARCTION , PROBABLY OLD [30 ms Q WAVE IN V3/V4, OR R < 0.2 mV IN V4] BORDERLINE ECG UNCONFIRMED REPORT Electronically signed by : Ladarius Cali, 11/14/2024 15:37:04
--- NOTE | 2024-11-14 12:58 | ED_ITS ---
<Statement entered by Arin Cali MD - 11/23/24 15:40> I was consulted by the FATMATA, and we discussed the complexity of the problems being addressed. I approved the treatment and management plan for this patient's care in the emergency department, thus performing a substantive portion of the medical decision making. Arin Cali MD, LEONCIO, FACEP Discharge Plan Disposition Patient Disposition: Home, Self-Care Condition: Good Prescriptions Prescriptions: No Action furosemide [Lasix] 40 mg tablet 40 mg PO DAILY Qty: 90 0RF varenicline tartrate [Chantix Starting Month Box] 0.5 mg (11)- 1 mg (42) tablets,dose pack See Rx Instructions PO PER PKG DIR Qty: 53 0RF Rx Instructions: PO PER PKG DIR ipratropium-albuterol 0.5 mg-3 mg(2.5 mg base)/3 mL solution for nebulization 3 ml inhalation QID PRN (Reason: shortness of breath or wheezing) Qty: 90 0RF cholecalciferol (vitamin D3) 50 mcg (2,000 unit) capsule 50 mcg PO DAILY Qty: 90 1RF ibuprofen 800 mg tablet 800 mg PO TID Qty: 90 2RF Referrals Follow up/Referrals: Provider,Referral, [Primary Care Provider, Medical] - See instructions Activity Restrictions/Add. Instructions Additional Instructions/Restrictions: As we discussed if you have persistent new or worsening symptoms follow-up closely with your PCP or return to the ER as needed. I recommend that you continue to keep your cardiology appointment for your heart catheterization. Clinical Impressions Clinical Impression: Paresthesia Print Language Print Language: Lithuanian Discharge ED Provider: Arin Cali HPI General Chief Complaint: Chest Pain Stated Complaint: Chest Pain Time Seen by Provider: 11/14/24 12:58 History of Present Illness HPI narrative: PinsPatient presents for evaluation of paresthesia. Patient states that she was sitting on her porch and began feeling a needle sensation on her face that then spread down to her bilateral upper extremities and onto her lower chest. Patient denies shortness of breath fever chest pain hemoptysis hematochezia melena nausea vomiting diarrhea. Patient does have a history of anxiety and panic attacks however she has never had these sensations before. Related Data Previous Rx's ?Medication ?Instructions ?Recorded varenicline tartrate 0.5 mg (11)-1 See Rx Instructions PO PER PKG DIR 02/07/25 mg (42) tablets in a dose pack #53 tabs (Chantix Starting Month Box) ipratropium 0.5 mg-albuterol 3 mg 3 ml inhalation QID PRN shortness 09/05/24 (2.5 mg base)/3 mL nebulization of breath or wheezing #90 mL soln ibuprofen 800 mg tablet 800 mg PO TID #90 tabs 10/04 cholecalciferol (vitamin D3) 50 50 mcg PO DAILY #90 ca ps 11/04/24 mcg (2,000 unit) capsule furosemide 40 mg tablet (Lasix) 40 mg PO DAILY #90 tab s 11/13/24 Allergies Allergy/AdvReac Type Severity Reaction Status Date / Time nicotine Allergy Mild Rash Verified 11/13/24 13:37 [facility] Disclaimer: The information contained in this section may have been updated after the patient was seen, as this information can be updated by other users. Medical History (Updated 11/14/24 @ 15:34 by EDUARDO Zhang) Abnormal electrocardiogram [ECG] [EKG] Edema of both lower extremities Acute bacterial bronchitis Chronic fatigue Paronychia Screening for colon cancer Screening for cervical cancer Breast cancer screening by mammogram Peripheral edema Hyperlipidemia Morbid obesity with body mass index (BMI) of 50.0 to 59.9 in adult Overweight Tobacco use disorder Left knee pain Fatigue Weight gain Obesity Bipolar disorder Back pain Depression Anxiety Surgical History Hx of tonsillectomy Hx laparoscopic cholecystectomy H/O hernia repair History of section Social History Smoking Status: Current every day smoker tobacco type: cigarettes packs per day: 2 second hand exposure: No alcohol intake: never substance use type: denies use current occupational status: employed Travel in the last 8 weeks?: None household members: children housing: apartment 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 current occupational exposures/hazards: No caffeine: Yes Have you lived/traveled outside US in past 30 days?: No Contact w/someone who lives/traveled outside US past 30 days?: No Exposure to someone with infectious disease in past 14 days?: No Do you have a fever (greater than 100.4 F or 38 C)?: No Have you tested positive for COVID-19?: No Exposed to someone with COVID-19 in past 14 days?: No Do you have a sore throat?: No Do you have a cough?: No Do you have any weakness?: No Do you have any diarrhea?: No Are you experiencing any unusual bleeding?: No Do you have any muscle aches/pain?: No Do you have any abdominal pain?: No Are you experiencing loss of taste or smell?: No Other Medical History Have you received the Flu Vaccine for this season: Yes Have you received the Pneumonia Vaccine: No ROS Obtained: Yes Systems reviewed as appropriate & no additional complaints except as documented Physical Exam General General appearance: alert and in no apparent distress Respiratory Respiratory exam: Present normal lung sounds bilaterally Cardiovascular Cardiovascular exam: Present regular rate Neurological Exam Neurological exam: Present alert, oriented X3, CN II-XII intact and normal gait; Absent motor sensory deficit HEART Score HEART Score HEART Score assessment performed?: Yes History (anamnesis): Slightly suspicious ECG: Non-specific disturbance Age: 45-65 years Risk factors: 3 or more risk factors Troponin: </= normal limit HEART Score: 4 Critical Care Critical Care Time Critical Care Time: No Medical Decision Making Medical Records Medical records reviewed: Yes I reviewed the patient's medical records. Mickey Inquiry Pt receiving controlled substance: No Vital Signs Vital Signs: 11/14/24 13:00 11/14/24 13:01 11/14/24 13:12 Temperature 98.8 F Temperature Source Oral Pulse Rate 74 78 Pulse Rate [Right] 78 Respiratory Rate 18 15 Blood Pressure 122/55 L Blood Pressure [Right Arm] 100/80 L Blood Pressure Mean 75 Blood Pressure Mean [Right Arm] 86 Blood Pressure Source [Right Arm] Automatic Cuff Blood Pressure Position [Right Arm] Supine 02 Sat by Pulse Oximetry 95 96 Oxygen Delivery Method Room Air 11/14/24 14:11 11/14/24 14:11 11/14/24 14:21 Temperature Temperature Source Pulse Rate 60 65 58 L Pulse Rate [Right] Respiratory Rate 16 15 16 Blood Pressure 84/53 L 78/46 L 84/53 L Blood Pressure [Right Arm] Blood Pressure Mean 56 61 Blood Pressure Mean [Right Arm] Blood Pressure Source [Right Arm] Blood Pressure Position [Right Arm] 02 Sat by Pulse Oximetry 96 100 95 Oxygen Delivery Method 11/14/24 14:30 11/14/24 14:37 11/14/24 15:00 Temperature Temperature Source Pulse Rate 58 L 62 58 L Pulse Rate [Right] Respiratory Rate 16 15 17 Blood Pressure 84/52 L 94/51 L 102/62 L Blood Pressure [Right Arm] Blood Pressure Mean 62 66 Blood Pressure Mean [Right Arm] Blood Pressure Source [Right Arm] Blood Pressure Position [Right Arm] 02 Sat by Pulse Oximetry 95 98 97 Oxygen Delivery Method Room Air Lab Data Lab results reviewed: Yes I reviewed the patient's lab results. Labs: Lab Results 11/14/24 12:51: WBC 10.1, RBC 5.13, Hgb 14.5, Hct 44.2, MCV 86.2, MCH 28.3, MCHC 32.8, RDW 14.3, Plt Count 260, MPV 10.3, Neut % (Auto) 56.0, Lymph % (Auto) 34.9, [place] % (Auto) 6.9, Eos % (Auto) 1.5, Baso % (Auto) 0.3, Neut # (Auto) 5.6, Lymph # (Auto) 3.5, [place] # (Auto) 0.7, Eos # (Auto) 0.2, Baso # (Auto) 0.0, PT 10.5, INR 0.94, Sodium 138, Potassium 4.2, Chloride 106, Carbon Dioxide 28, Anion Gap 8.2, BUN 8, Creatinine 0.70, Estimated Creat Clear 71, Estimated GFR 90, Est GFR ( Amer) 109, Glucose 97, Calcium 9.1, Magnesium 1.7, Total Bilirubin 0.4, AST 23, ALT 15, Alkaline Phosphatase 86, Troponin I < 0.01, N T-Pro-B Natriuret Pep 231 H, Total Protein 7.1, Albumin 4.1, Globulin 3.0, Albumin/Globulin Ratio 1.4, TSH 2.26, Free T4 Index 2.6 L, Thyroxine (T4) 8.0, T3 Uptake 32, Serum HCG, Qual Negative 11/14/24 13:07: VBG pH 7.37, VBG pCO2 40.5, VBG pO2 51.6 H, VBG HCO3 22.6 L, VBG Total CO2 23.9, VBG O2 Saturation 88.6 H, VBG Base Excess -2.7 L, VBG Lactic Acid 1.5 11/14/24 14:06: Urine Color Yellow, Urine Appearance Clear, Urine pH 6.0, Ur Specific Melbeta 1.015, Urine Protein Negative, Urine Glucose (UA) Negative, Urine Ketones Negative, Urine Blood Negative, Urine Nitrate Negative, Urine Bilirubin Negative, Urine Urobilinogen 0.2, Ur Leukocyte Esterase Trace, Urine RBC None, Urine WBC 5-10, Ur Squamous Epith Cells 5-10, Urine Bacteria Trace 11/14/24 12:51 11/14/24 12:51 Response Orders (Tests/Meds): ED MEDICATIONS Discontinued Medications Generic Name Dose Route Start Last Admin Trade Name Freq PRN Reason Stop Dose Admin Acetaminophen 1,000 mg 11/14/24 13:07 11/14/24 13:38 Acetaminophen 500mg Tab PO 11/14/24 13:08 1,000 mg ONCE ONE Administration Sodium Chloride 1,000 mls @ 999 mls/hr 11/14/24 13:07 11/14/24 13:38 Sod Chlor 0.9% 1000ml Bag IV 11/14/24 14:07 999 mls/hr .Q1H1M ONE Administration Iopamidol 160 ml 11/14/24 13:34 11/14/24 13:39 Iopamidol-370 (76%);100ml Bottle IV 11/14/24 13:35 160 ml ONCE ONE Administration Ketorolac Tromethamine 15 mg 11/14/24 13:07 11/14/24 13:38 Ketorolac 30mg/Ml Vial IV 11/14/24 13:08 15 mg ONCE ONE Administration Ondansetron HCl 4 mg 11/14/24 13:07 11/14/24 13:38 Ondansetron 4mg/2ml Vial IV 11/14/24 13:08 4 mg ONCE ONE Administration Prochlorperazine Edisylate 10 mg 11/14/24 15:11 Prochlorperazine 10mg/2ml Vial IV 11/14/24 15:12 ONCE ONE Sodium Chloride 10 ml 11/14/24 13:34 11/14/24 13:39 Sodium Chloride 0.9% 10ml Syr (Rad Only) IV 11/14/24 13:35 10 ml ONCE ONE Administration Sodium Chloride 100 ml 11/14/24 13:34 11/14/24 13:39 0.9 % Sodium Chloride 50 Ml Vial IV 11/14/24 13:35 100 ml ONCE ONE Administration ORDERS Category Date Time Status CT angio chest - dissection Stat Cat Scan 11/14/24 13:[address] angio head Stat Cat Scan 11/14/24 13:[address] angio neck Stat Cat Scan 11/14/24 13:[address] head/brain wo con Stat Cat Scan 11/14/24 13:07 Completed BNP [NT Pro Brain Natriuretic Pep.] Stat Lab 11/14/24 12:51 Completed CBC w/Auto Diff [Complete Blood Count Auto Diff] Stat Lab 11/14/24 12:51 Completed CMP [Comprehensive Metabolic Panel] Stat Lab 11/14/24 12:51 Completed HCG Qualitative, Serum Stat Lab 11/14/24 12:51 Completed INR [Prothrombin Time INR] Stat Lab 11/14/24 12:51 Completed Magnesium Stat Lab 11/14/24 12:51 Completed Thyroid Panel Stat Lab 11/14/24 12:51 Completed Trop I [Troponin I] Stat Lab 11/14/24 12:51 Completed Troponin I Q3H Lab 11/14/24 16:15 Ordered Troponin I Q3H Lab 11/14/24 19:15 Ordered UA [Urinalysis and Microscopic] Stat Lab 11/14/24 14:06 Completed VBG [Venous Blood Gas] Stat RT 11/14/24 13:07 Completed MDM Narrative Medical Decision Narrative: In summary patient is a 49-year-old female who presents to the emergency department for evaluation of paresthesias. Patient is initially slightly hypotensive with a blood pressure of 100/80 but with a heart rate of 78 normal sinus rhythm on the bedside monitor breathing 18 times a minute satting at 95% on room air upon arrival, afebrile at 98.8. Physical exam is remarkable for a [place] Coma Score 15 cranial nerves II through XII intact grossly to exam pupils equal round reactive to light NIH stroke score 0. Patient has no focal neurologic deficits. She has full motor and sensory and is ambulatory in the ER. She has no 2.1 point abnormalities she has normal heel-to-toe normal soygsm-le-iwun. Breath sounds critical bilateral to the bases with adventitious sounds cardiovascular's S1-S2 regular rate and rhythm without murmurs gallops rubs or thrills normal sinus rhythm on the bedside monitor. Patient has no cervical spine tenderness and has full range of motion of her C-spine.. Differential diagnosis includes atypical chest pain versus PE versus dissection versus stroke versus electrolyte abnormality versus anxiety versus degenerative disc disease etc. Initial workup will be conducted with hematologic labs CT of the head without contrast CTA of the head neck and chest twelve-lead EKG.. Initial interventions include Toradol Tylenol and crystalloid bolus. Initial workup reviewed by me shows that her hematologic labs are nonactionable including an undetectable troponin. My informal to rotation of her imaging shows no acute intracranial process large vessel occlusion or stenosis nor dissection or acute and thoracic process prior to radiology read. Please see final read for formal interpretation.. Upon repeat evaluation patient reported that her paresthesias have largely resolved except the ones on her face. Given this we have essentially ruled out any serious or life-threatening condition and while there remains diagnostic uncertainty as the cause of her symptoms she does not currently have an emergency life-threatening condition thus we have had a shared decision-making discussion and patient feels comfortable going home with close follow-up with her PCP for persistent new or worsening signs or symptoms. She will also keep her appoint with cardiology for her heart cath.
--- NOTE | 2024-11-14 13:07 | CT_ITS ---
FINAL REPORT TECHNIQUE: The patient was injected with IV contrast. Axial images were obtained through the chest in a PE protocol. 3-D reconstruction images were also performed. Individualized dose reduction techniques using automated exposure control or adjustment of the MA and/or KV according to patient's size were employed. CLINICAL HISTORY: Paresthesia of the face and UE s and chest pressur COMPARISON: None FINDINGS: Mediastinal vasculature is adequately opacified. No pulmonary artery filling defects are identified to suggest PE. There is no aortic dissection. There is no axillary adenopathy. There is no hilar or mediastinal adenopathy. The heart size is normal. There is no pericardial or pleural effusion. Limited images of the upper abdomen are unremarkable. There are minimal ground glass opacities present in the lung bases bilaterally, consistent with pneumonitis. IMPRESSION: No pulmonary embolus or dissection. Minimal ground glass opacities in the lung bases, consistent with pneumonitis. Reviewed, Interpreted and Dictated by Aman Willett MD Transcribed by Kayleigh Al Authenticated and [facility]
--- NOTE | 2024-11-14 13:07 | CT_ITS ---
FINAL REPORT TECHNIQUE: NASCET technique utilized for stenosis evaluation. CLINICAL HISTORY: Paresthesia of the face and upper extremities COMPARISON: None FINDINGS: RIGHT CAROTID: No significant stenosis is seen of the cervical common or internal carotid artery. There is significant tortuosity of the right internal carotid artery distal to the carotid bulb. LEFT CAROTID: No significant stenosis seen of the cervical common or internal carotid artery. There is significant tortuosity of the left internal carotid artery distal to the carotid bulb. VERTEBRALS: The vertebrals are patent. No significant stenosis is present. IMPRESSION: No significant arterial abnormality. Reviewed, Interpreted and Dictated by Aman Willett MD Transcribed by Kayleigh Al Authenticated and . [facility]
--- NOTE | 2024-11-14 13:07 | CT_ITS ---
FINAL REPORT TECHNIQUE: Axial CT images were performed through the head. Coronal and sagittal reformatted images were submitted. This study was performed with techniques to keep radiation doses as low as reasonably achievable (ALARA). Individualized dose reduction techniques using automated exposure control or adjustment of mA and/or kV according to the patient's size were employed. CLINICAL HISTORY: Paresthesia of the face and upper extremities COMPARISON: None FINDINGS: The ventricles are normal in size. There is no evidence of hemorrhage. There is no mass or edema identified. There is no abnormal extra-axial fluid seen. The sinuses are well aerated. IMPRESSION: No acute intracranial process. Reviewed, Interpreted and Dictated by Aman Willett MD Transcribed by Kayleigh lA Authenticated and '[facility]
--- NOTE | 2024-11-14 13:07 | CT_ITS ---
FINAL REPORT TECHNIQUE: thin section axial CT with and without IV contrast supplemented with multiplanar 3-D reconstruction of the head. This study was performed with techniques to keep radiation doses as low as reasonably achievable, (ALARA)individualized dose reduction techniques using automated exposure control or adjustment of mA and/or kV according to the patient's size were employed. CLINICAL HISTORY: Paresthesia of the face and upper extremities COMPARISON: None FINDINGS: HEAD CT: The ventricles are normal in size. There is no evidence of hemorrhage. No masses are identified. No extra-axial fluid is seen. The sinuses are normal. CTA: The cranial circulation is unremarkable. There is no significant stenosis, aneurysm or occlusion. IMPRESSION: No acute process. Reviewed, Interpreted and Dictated by Aman Willett MD Transcribed by Kayleigh Al Authenticated and [facility]
[2024-11-14 13:14] LABS: Basophils % 0.3 % (0.1-2.0); Eosinophils # 0.2 Kmm3 (0.0-0.4); Eosinophils % 1.5 % (0.1-12.0); Hematocrit 44.2 % (37.0-47.0); Hemoglobin 14.5 g/dL (12.2-16.2); Immature Granulocytes # 0.04 10^3uL; Immature Granulocytes % 0.4 %; Lymphocytes # 3.5 K/mm3 (0.7-4.5); Lymphocytes % 34.9 % (10-50); Mean Corpuscular HGB Conc 32.8 g/dL (31.8-35.4); Mean Corpuscular Hemoglobin 28.3 pg (27.0-31.2); Mean Corpuscular Volume 86.2 fl (81-99); Mean Platelet Volume 10.3 fl (7.4-10.4); Monocytes # 0.7 K/mm3 (0.1-1.0); Monocytes % 6.9 % (1.7-9.3); Neutrophils # 5.6 K/mm3 (1.8-7.8); Nucleated Red Blood Cells # 0 10^3/uL; Nucleated Red Blood Cells % 0 %; Platelet Count 260 K/mm3 (142-424); Red Blood Count 5.13 M/mm3 (4.20-5.40); Red Cell Distribution Width 14.3 % (11.5-17.5); White Blood Count 10.1 K/mm3 (4.8-10.8)
[2024-11-14 13:17] LABS: Albumin Level 4.1 g/dl (3.5-5.0); Chloride 106 mmol/L (98-107); Potassium 4.2 mmoL/L (3.5-5.1); Sodium 138 mmol/L (136-145)
[2024-11-14 13:19] LABS: Lactate Venous 1.5 mmol/L (0.4-2.0); VBG Base Excess -2.7 mmol/L (-2.4-2.3); VBG HCO3 22.6 mmol/L (23-30); VBG Oxygen Saturation 88.6 % (50-70); VBG PCO2 40.5 mmol/L (35-51); VBG PH 7.37 mmol/L (7.31-7.41); VBG PO2 51.6 mmol/L (28-40); VBG Total CO2 23.9 mmol/L (23-27)
[2024-11-14 13:20] LABS: Alanine Aminotransferase 15 U/L (12-78); Albumin/Globulin Ratio 1.4 (1.1-1.8); Alkaline Phosphatase 86 U/L (38-126); Anion Gap 8.2 mEq/L (5-15); Aspartate Amino Transferase 23 U/L (14-36); Bilirubin,Total 0.4 mg/dl (0.2-1.3); Blood Urea Nitrogen 8 mg/dl (7-17); Calcium 9.1 mg/dl (8.4-10.2); Carbon Dioxide 28 mmol/L (22.0-30.0); Creatinine Clearance Estimated 71 mL/min (50-200); Estimated Glomerular Filt Rate 90 ml/min (>60); GFR (African American) 109 ML/MIN (>60); Glucose 97 mg/dl (74-100); Total Protein,Serum 7.1 g/dl (6.3-8.2)
[2024-11-14 13:21] LABS: Magnesium 1.7 mg/dl (1.6-2.3)
[2024-11-14 13:26] LABS: INR 0.94 (0.9-1.1); Prothrombin Time 10.5 seconds (10.1-12.5)
[2024-11-14 13:30] LABS: NT Pro Brain Natriuretic Pep. 231 pg/mL (0-125)
[2024-11-14] MEDS: 0.9 % SODIUM CHLORIDE 1000ML 1,000 ML 999 ML IV (13:38)
[2024-11-14] MEDS: ONDANSETRON 4MG/2ML VIAL 4 MG IV (13:38)
[2024-11-14] MEDS: KETOROLAC 30MG/ML VIAL 15 MG IV (13:38)
[2024-11-14] MEDS: ACETAMINOPHEN 500MG TAB 1000 MG PO (13:38)
[2024-11-14] MEDS: 0.9 % SODIUM CHLORIDE 50 ML VIAL 100 ML IV (13:39)
[2024-11-14] MEDS: SODIUM CHLORIDE 0.9% 10ML SYR (RAD ONLY) 10 ML IV (13:39)
[2024-11-14] MEDS: IOPAMIDOL-370 (76%);100ML BOTTLE 160 ML IV (13:39)
[2024-11-14 13:40] LABS: HCG Qualitative, Serum Negative (Negative)
[2024-11-14 13:42] LABS: Troponin I < 0.01 ng/ml (0.00-0.034)
[2024-11-14 14:10] LABS: Microscopic, Urine URINE MICROSCOPIC (MICROSCOPIC)
[2024-11-14 14:12] LABS: Appearance,Urine CLEAR (Clear); Bilirubin,Urine Negative (Negative); Blood, Urine Negative (Negative); Color,Urine YELLOW (Yellow); Glucose,Urine (UA) Negative (Negative); Ketones,Urine Negative (Negative); Leukocyte Esterase,Urine TRACE (Negative); Nitrate,Urine Negative (Negative); Protein,Urine Negative (Negative); Specific Gravity, Urine 1.015 (1.005-1.030); Urobilinogen,Urine 0.2 EU/dl (0.2)
[2024-11-14 14:13] LABS: Free Thyroxine Index 2.6 ug/dL (5.93-13.13); Triiodothryronine (T3) Uptake 32 % (23.5-40.5)
[2024-11-14 14:27] LABS: Thyroid Stimulating Hormone 2.26 uIU/mL (0.465-4.68)
[2024-11-14 14:29] LABS: Bacteria,Urine Trace /lpf
[2024-11-14] MEDS: PROCHLORPERAZINE 10MG/2ML VIAL 10 MG IV (15:54)
== END 2024-11-14 16:01 | disposition home or self-care (01) ==
PROVIDERS: Physician Assistant; Emergency Provider Student in an Organized Health Care Education/Training Program
DX: R20.2 Paresthesia of skin (principal); F17.210 Nicotine dependence, cigarettes, uncomplicated
CPT/HCPCS: 70450; 70496; 70498; 71275; 80053; 81001; 82803; 83735; 83880; 84436; 84443; 84479; 84484; 84703; 85025; 85610; 93005; 96361; 96374; 96375; 99285; J0780; J1885; J2405; J7030; Q9967

== ENCOUNTER 2024-11-25 07:05 | Day surgery (SDC) | payer OTHER, SELFPAY ==
[2024-11-25] VITALS (12 sets, daily range): BP systolic 109–123; BP diastolic 53–74; PULSE 61–90; RESP 18–20; TEMP 36.6; O2SAT 95–99; BMI 55.9
--- NOTE | 2024-11-25 07:10 | IR_ITS ---
APPROVED REPORT Patient Location: Outpatient Traffic Analyst: SHIRA Fuller RT (R) PROCEDURES Left heart catheterization Left ventriculogram Selective coronary angiogram INDICATION Abnormal Myoview, Angina pectoris, Numerous risk factors for coronary disease, Informed consent was obtained prior to the procedure. COMPLICATIONS NONE Estimated Blood Loss: LESS THAN 10 ML TECHNIQUE One percent lidocaine used to anesthetize the right anterior aspect of the wrist. The right radial artery was accessed via the Seldinger technique. A 6 Bhutanese sheath was placed in the right radial artery. 2.5 mg of Verapamil, 800 mcg of nitroglycerin, 1mg Lidocaine and 5000 U Heparin were given through the arterial sheath. The JL3 catheter was also used to perform left heart catheterization, left ventriculogram and selective coronary angiogram. At the end of the procedure the sheath was removed good hemostasis was achieved using Traclet band, patient was transferred to the postop holding area in stable condition. ANGIOGRAPHIC RESULTS The left main artery Normal The left anterior descending artery Mild 10% luminal regularities The circumflex artery Has a mid vessel 20% stenosis The right coronary artery Mild luminal irregularities The MASSEY ventriculogram reveals Normal 65% The left ventricular end-diastolic pressure Elevated at 20 to 25 mmHg IMPRESSION Mild nonflow limiting coronary disease Normal ejection fraction Elevated LVEDP PLAN 1. Medical management with aggressive risk factor modification Electronically signed by : Theodore Ybarra MD 11/25/2024 11:34:10
[2024-11-25 08:00] LABS: Basophils % 0.3 % (0.1-2.0); Eosinophils # 0.2 Kmm3 (0.0-0.4); Eosinophils % 1.7 % (0.1-12.0); Hematocrit 45.5 % (37.0-47.0); Hemoglobin 14.8 g/dL (12.2-16.2); Immature Granulocytes # 0.03 10^3uL; Immature Granulocytes % 0.3 %; Lymphocytes # 2.4 K/mm3 (0.7-4.5); Lymphocytes % 26.8 % (10-50); Mean Corpuscular HGB Conc 32.5 g/dL (31.8-35.4); Mean Corpuscular Hemoglobin 28.2 pg (27.0-31.2); Mean Corpuscular Volume 86.7 fl (81-99); Mean Platelet Volume 9.9 fl (7.4-10.4); Monocytes # 0.6 K/mm3 (0.1-1.0); Monocytes % 6.7 % (1.7-9.3); Neutrophils # 5.7 K/mm3 (1.8-7.8); Neutrophils % 64.2 % (37.0-80.0); Nucleated Red Blood Cells # 0 10^3/uL; Nucleated Red Blood Cells % 0 %; Platelet Count 269 K/mm3 (142-424); Red Blood Count 5.25 M/mm3 (4.20-5.40); Red Cell Distribution Width 14.3 % (11.5-17.5); Red Cell Distribution Width-SD 45.2 fL; White Blood Count 8.8 K/mm3 (4.8-10.8)
[2024-11-25 08:13] LABS: Chloride 103 mmol/L (98-107); Sodium 140 mmol/L (136-145)
[2024-11-25 08:16] LABS: Blood Urea Nitrogen 9 mg/dl (7-17); Calcium 8.9 mg/dl (8.4-10.2); Carbon Dioxide 30 mmol/L (22.0-30.0); Creatinine Clearance Estimated 62 mL/min (50-200); Estimated Glomerular Filt Rate 77 ml/min (>60); GFR (African American) 93 ML/MIN (>60); Glucose 103 mg/dl (74-100)
[2024-11-25] MEDS: HEPARIN 1,000 UNITS/500ML NS (CATH LAB) 3000 UNIT IV (09:27)
[2024-11-25] MEDS: LIDOCAINE 1% 10ML MDV 10 ML IJ (09:27)
[2024-11-25] MEDS: diphenhydrAMINE 50MG/ML VIAL 50 MG IV (09:27)
[2024-11-25] MEDS: 0.9 % SODIUM CHLORIDE 500 ML 25 ML IV (09:27)
[2024-11-25] MEDS: HEPARIN 1,000 UNITS/ML 10ML VIAL (CATH LAB) 5000 UNIT IV (09:27)
[2024-11-25] MEDS: VERAPAMIL 2.5MG/ML 2ML VIAL 2.5 MG IV (09:27)
[2024-11-25] MEDS: NITROGLYCERIN 800MCG/8ML SYR (CATH LAB) 800 MCG IA (09:28)
[2024-11-25] MEDS: FENTANYL 100MCG/2ML VIAL 25 MCG IV (09:48)
[2024-11-25] MEDS: MIDAZOLAM HCL 1MG/ML 5ML VIAL 1 MG IV (09:48)
[2024-11-25] MEDS: IOPAMIDOL-370 (76%);100ML BOTTLE 70 ML IV (10:58)
== END 2024-11-25 12:55 | disposition home or self-care (01) ==
PROVIDERS: PCP Family Medicine; Visit Provider Internal Medicine
PROC: 4A023N7 Measurement of Cardiac Sampling and Pressure, Left Heart, Percutaneous Approach (ICD-10-PCS; CPT 93452; principal; 2024-11-25 07:00)
DX: R94.39 Abnormal result of other cardiovascular function study (principal); I20.9 Angina pectoris, unspecified; R94.31 Abnormal electrocardiogram [ECG] [EKG]; R93.1 Abnormal findings on diagnostic imaging of heart and coronary circulation; R60.0 Localized edema; E78.5 Hyperlipidemia, unspecified; E66.9 Obesity, unspecified; Z68.43 Body mass index [BMI] 50.0-59.9, adult; Z86.718 Personal history of other venous thrombosis and embolism; F17.210 Nicotine dependence, cigarettes, uncomplicated; Z79.82 Long term (current) use of aspirin; Z79.01 Long term (current) use of anticoagulants; Z79.899 Other long term (current) drug therapy; Z79.1 Long term (current) use of non-steroidal anti-inflammatories (NSAID); Z88.8 Allergy status to other drugs, medicaments and biological substances
CPT/HCPCS: 93458; 80048; 85025; 99152; C1725; C1769; J1200; J1644; J3010; J7040; Q9967

== ENCOUNTER 2024-12-02 14:23 | Outpatient (CLI) | payer OTHER, SELFPAY ==
--- OUTSIDE RECORDS SUMMARY | 2024-12-02 14:25 | XMS_ITS | Encounter Summary ---
Author [place] [address] Care Team Providers Care Sack Maker Name Role Phone Jono Garcia DO, Viral Primary Care Provider [phone] SebastianSera crane DPM Unavailable Unav ailable Payton Deleon BS, COS Unavailable Unavail able Joelle Heard MD Unavailable [phone] LeifMichael ching DO Primary Care Provider [phone] Elizabeth Urena DIRECT CARE STAFFER Unavailable Unavail able Encounter Details Date Type Department Care Team (Late st Contact Info) Description 09/25/2014 Orders Only SEP Gastro [facility] [address] [address] Enrico Fleming MD Social History [...] PM EDT) 09/25/2014 2:00 PM EDT Impressions [facility] - 09/25/2014 4:21 PM EDT Polyp [...] ORDERABLES Final R esult Performing Organization Address City/State/[facility] Co de Phone Number [facility] [address] [place] [address] documented in this encounter Visit Diagnoses Not on filedocumented in this encounter Additional Health Concerns Infection Onset Date Last Indicated Resolved Time R/O COVID-19 04/17/2021 04/17/2021 04/17/2021 10:1 4 PM EST R/O COVID-19 04/19/2021 04/19/2021 04/19/2021 6:41 AM EST documented as of this encounter Care Teams Sack Maker Relationship Specialty Start Date End Date Jake De La Cruz DO [address] [place] [phone] PCP - General Family Medicine 04/09/14 02/18/21 Michael Yadav DO [address] [place] [id number] PCP - General Family Medicine 02/19/21 04/22/24 Sera Cortes DPM [address] [place] [id number] Factory Expert-Surgery, Foot & Ankle 04/28/15 Payton Deleon, BS, COS [facility] 06/27/19 07/17/19 Joelle Heard MD [address] [place] [address] [place] [address] Medical Oncologist Internal Medicine-Hematology and Oncology 09/07/20 Elizabeth Urena, [place] Party Plan Selling Distributor 06/17/21 07/21/21 documented as of this encounter
--- OUTSIDE RECORDS SUMMARY | 2024-12-02 14:25 | XMS_ITS | Clinical Summary ---
Author Organization [facility] Address [address] [place] [address] Phone Care Team Providers Care Manager Research Development Name Role Phone Sera Cortes DPM Unavailable Unav Joelle Sanchez MD Unavailable [phone] Allergies Active Allergy Reactions Criticality Noted [...] bzo 02/06/15 uds 09/13/17 jose alejandro 11/24/17 [id number] Problem Noted Date Diagnosed Date Bronchitis 04/19/2021 [...] ; Surgeon: Juan R Cam MD; Location: [facility] OR; Service: General Medical History [...] Date Smoking Tobacco: Every Day Cigarettes 2 34.5 Started: 05/29/1990 Smokeless Tobacco: Never Tobacco Cessation:Ready [...] Date Recorded PHQ-2 Total Score 0 09/07/[address] [facility] of Occupat ional Health - Occupational Stress [...] Colonoscopy 09/25/2024 09/25/2014, 05/29 (Postponed) Influenza Vaccine (#1) 2025 , 02/10/2019, 01/22/2019, Additional history exists Meningococcal B [...] AM EDT : Incomplete-need additional imaging evaluation ([id number]) ~ RECOMMENDATION: Ultrasound of the left breast. [...] PM EDT) 09/25/2014 2:00 PM EDT Impressions [facility] - 09/25/2014 4:21 PM EDT [...] ORDERABLES Final R esult Performing Organization Address City/State/[facility] Co de Phone Number [facility] [address] [place] [address] from Last 3 Months or Most Recently Relevant to Health Maintenance Insurance [employer] [facility] [place] [address] [facility] [address] [facility] [address] Advance Directives For more information, please contact: [phone] * Full Code (Latest Code Status on File) Date Activated Date Inactivated Comments 04/19/2021 3:01 PM 04/21/2021 6:14 PM * Full Code Date Activated Date Inactivated Comments 07/18/2014 10:39 AM 07/20/2014 4:40 PM Care Teams Manager Research Development Relationship Specialty Start Date End Date Sera Cortes DPM Milking Machine Operator-Surgery, Foot & Ankle 04/28/15 Joelle Heard MD [address] [facility] [place] [address] Medical Oncologist Internal Medicine-Hematology and Oncology 09/07/20
--- NOTE | 2024-12-02 14:30 | CA_ITS ---
FINAL REPORT CLINICAL HISTORY: PAIN RT HAND TO ELBOW,PT HAD HEART CATH ON 11/25/24 WITH RIGHT RADIAL ARTERY ACCESS FINDINGS: Spectral and Doppler waveform evaluations of the right wrist was performed. Spectral analysis was performed. There is complete thrombus in the right radial artery with absence of flow in the distal right radial artery. No evidence of pseudoaneurysm or AV fistula. IMPRESSION: Complete thrombus right radial artery. Reviewed, Interpreted and Dictated by Aman Willett MD Transcribed by Cortney Zhang Authenticated and [facility]
== END 2024-12-02 23:59 | disposition home or self-care (01) ==
LOC: RT 14:23
PROVIDERS: PCP Family Medicine; Visit Provider Physician Assistant
DX: I82.621 Acute embolism and thrombosis of deep veins of right upper extremity (principal); Z86.718 Personal history of other venous thrombosis and embolism
CPT/HCPCS: 93931

== ENCOUNTER → 2024-12-30 06:37 | Outpatient (CLI) | payer OTHER, SELFPAY ==
--- OUTSIDE RECORDS SUMMARY | 2024-12-30 06:39 | XMS_ITS | Clinical Summary ---
Author Organization [facility] Address [address] [place] [address] Phone Care Team Providers Care Staple Processing Machine Operator Name Role Phone Sera Cortes DPM Unavailable [...] bzo 02/06/15 uds 09/13/17 jose alejandro 11/24/17 [id number] Problem Noted Date Diagnosed Date Bronchitis 04/19/2021 [...] ; Surgeon: Juan R Cam MD; Location: [facility] MAIN OR; Service: General Medical History [...] Date Smoking Tobacco: Every Day Cigarettes 2 34.6 Started: 05/29/1990 Smokeless Tobacco: Never Tobacco Cessation:Ready [...] Date Recorded PHQ-2 Total Score 0 09/07/2021 [facility] of Occupat ional Health - Occupational Stress [...] AM EDT : Incomplete-need additional imaging evaluation ([id number]) ~ RECOMMENDATION: Ultrasound of the left breast. [...] PM EDT) 09/25/2014 2:00 PM EDT Impressions [facility] - 09/25/2014 4:21 PM EDT Polyp [...] City/State/[facility] Co de Phone Number [facility] [address] [place] [address] from Last 3 Months or Most Recently Relevant to Health Maintenance Insurance AET[place] [facility] [place] [address] [facility] [address] [facility] [address] Advance Directives For more information, please contact: [phone] * Full Code (Latest Code Status on File) Date Activated Date Inactivated Comments 04/19/2021 3:01 PM 04/21/2021 6:14 PM * Full Code Date Activated Date Inactivated Comments 07/18/2014 10:39 AM 07/20/2014 4:40 PM Care Teams Staple Processing Machine Operator Relationship Specialty Start Date End Date Sera Cortes DPM Middle School Counselor-Surgery, Foot & Ankle 04/28/15 Joelle Heard MD [address] [place] [address] Medical Oncologist Internal Medicine-Hematology and Oncology 09/07/20
--- OUTSIDE RECORDS SUMMARY | 2024-12-30 06:39 | XMS_ITS | Encounter Summary ---
Author [place] [address] Care Team Providers Care Paint Grinder Name Role Phone Jono Garcia DO, Viral Primary Care Provider [phone] SebastianSera crane DPM Unavailable Unav ailable Payton Deleon BS, COS Unavailable Unavail able Joelle Heard MD Unavailable [phone] LeifMichael ching DO Primary Care Provider [phone] Elizabeth Urena BUN MACHINE OPERATOR Unavailable Unavail able Encounter Details Date Type Department Care Team (Late st Contact Info) Description 09/25/2014 Orders Only SEP [facility] [address] [phone] Enrico Fleming MD Social History [...] PM EDT) 09/25/2014 2:00 PM EDT Impressions [facility] - 09/25/2014 4:21 PM EDT [...] ORDERABLES Final R esult Performing Organization Address City/State/[facility] Co de Phone Number [facility] [address] [place] [address] documented in this encounter Visit Diagnoses Not on filedocumented in this encounter Additional Health Concerns Infection Onset Date Last Indicated Resolved Time R/O COVID-19 04/17/2021 04/17/2021 04/17/2021 10:1 4 PM EST R/O COVID-19 04/19/2021 04/19/2021 04/19/2021 6:41 AM EST documented as of this encounter Care Teams Paint Grinder Relationship Specialty Start Date End Date Jake De La Cruz DO [address] [place] [phone] PCP - General Family Medicine 04/09/14 02/18/21 Michael Yadav DO [address] [place] [id number] PCP - General Family Medicine 02/19/21 04/22/24 Sera Cortes DPM [address] [place] [phone] Outside Solar Sales Consultant-Surgery, Foot & Ankle 04/28/15 Payton Deleon, BS, COS Case Medical Appointment Scheduler 06/27/19 07/17/19 Joelle Heard MD [address] [place] [address] [place] [address] Medical Oncologist Internal Medicine-Hematology and Oncology 09/07/20 Elizabeth Urena, [place] Wind Turbine Technician 06/17/21 07/21/21 documented as of this encounter
== END ==
LOC: SL 06:37
PROVIDERS: PCP Family Medicine; Visit Provider Family Medicine
DX: G47.33 Obstructive sleep apnea (adult) (pediatric) (principal); G47.36 Sleep related hypoventilation in conditions classified elsewhere; R40.0 Somnolence; R53.83 Other fatigue
CPT/HCPCS: G0399

== ENCOUNTER 2025-01-02 10:42 | Outpatient (CLI) | payer OTHER, SELFPAY ==
--- OUTSIDE RECORDS SUMMARY | 2025-01-02 10:47 | XMS_ITS | Clinical Summary ---
Author Organization [facility] Address [address] [place] [address] Phone Care Team Providers Care Adult Parole Officer Name Role Phone Sera Cortes DPM Unavailable [...] bzo 02/06/15 uds 09/13/17 jose alejandro 11/24/17 [id number] Problem Noted Date Diagnosed Date Bronchitis 04/19/2021 [...] ; Surgeon: Juan R Cam MD; Location: [facility] OR; Service: General Medical History [...] Date Recorded PHQ-2 Total Score 0 09/07/2021 [facility] of Occupat ional Health - Occupational Stress [...] AM EDT : Incomplete-need additional imaging evaluation ([id number]) ~ RECOMMENDATION: Ultrasound of the left breast. [...] PM EDT) 09/25/2014 2:00 PM EDT Impressions [facility] - 09/25/2014 4:21 [...] ORDERABLES Final R esult Performing Organization Address City/State/[facility] Co de Phone Number [facility] [address] [place] [address] from Last 3 Months or Most Recently Relevant to Health Maintenance Insurance [employer] [facility] [place] [address] [facility] [address] [facility] [address] Advance Directives For more information, please contact: [phone] * Full Code (Latest Code Status on File) Date Activated Date Inactivated Comments 04/19/2021 3:01 PM 04/21/2021 6:14 PM * Full Code Date Activated Date Inactivated Comments 07/18/2014 10:39 AM 07/20/2014 4:40 PM Care Teams Adult Parole Officer Relationship Specialty Start Date End Date Sera Cortes DPM Chimney Construction Supervisor-Surgery, Foot & Ankle 04/28/15 Joelle Heard MD [address] [place] [address] Medical Oncologist Internal Medicine-Hematology and Oncology 09/07/20
--- OUTSIDE RECORDS SUMMARY | 2025-01-02 10:47 | XMS_ITS | Encounter Summary ---
Author Organization [place] [address] Care Team Providers Care Aluminum Siding Mechanic Name Role Phone Jono Garcia DO, Viral Primary Care Provider [phone] SebastianSera crane DPM Unavailable Unav ailable Payton Deleon BS, COS Unavailable Unavail able Joelle Heard MD Unavailable [phone] LeifMichael ching DO Primary Care Provider [phone] Elizabeth Urena INTERACTIVE MEDIA MARKETING DIRECTOR Unavailable Unavail able Encounter Details Date Type Department Care Team (Late st Contact Info) Description 09/25/2014 Orders Only SEP [facility] [address] [phone] nErico Fleming MD Social History Tobacco Use Types [...] PM EDT) 09/25/2014 2:00 PM EDT Impressions [facility] - 09/25/2014 4:21 PM EDT [...] ORDERABLES Final R esult Performing Organization Address City/State/[facility] Co de Phone Number [facility] [address] [place] [address] documented in this encounter Visit Diagnoses Not on filedocumented in this encounter Additional Health Concerns Infection Onset Date Last Indicated Resolved Time R/O COVID-19 04/17/2021 04/17/2021 04/17/2021 10:1 4 PM EST R/O COVID-19 04/19/2021 04/19/2021 04/19/2021 6:41 AM EST documented as of this encounter Care Teams Aluminum Siding Mechanic Relationship Specialty Start Date End Date Jake De La Cruz DO [address] [place] [phone] PCP - General Family Medicine 04/09/14 02/18/21 Michael Yadav DO [address] [place] [phone] PCP - General Family Medicine 02/19/21 04/22/24 Sera Cortes DPM [address] [place] [phone] Race Steward-Surgery, Foot & Ankle 04/28/15 Payton Deleon, BS, COS Case Animal Ride Manager 06/27/19 07/17/19 Joelle Heard MD [address] [place] [address] [place] [address] Medical Oncologist Internal Medicine-Hematology and Oncology 09/07/20 Elizabeth Urena, [place] Laboratory Technician 06/17/21 07/21/21 documented as of this encounter
--- NOTE | 2025-01-02 11:00 | CA_ITS ---
FINAL REPORT CLINICAL HISTORY: F/U RIGHT RADIAL ARTERY THROMBUS FINDINGS: Spectral and Doppler waveform evaluations of the right wrist was performed. Spectral analysis was performed. No evidence of thrombosis in the right radial artery. IMPRESSION: No evidence of thrombosis. Reviewed, Interpreted and Dictated by Aman Willett MD Transcribed by Cortney Zhang Authenticated and [facility]
== END 2025-01-02 23:59 | disposition home or self-care (01) ==
LOC: RT 10:43
PROVIDERS: PCP Family Medicine; Visit Provider Physician Assistant
DX: Z04.89 Encounter for examination and observation for other specified reasons (principal); Z86.718 Personal history of other venous thrombosis and embolism
CPT/HCPCS: 93931

== ENCOUNTER 2025-01-13 10:13 | Outpatient (CLI) | payer OTHER, SELFPAY ==
[2025-01-13 16:49] LABS: Chloride 104 mmol/L (98-107)
[2025-01-13 16:50] LABS: Potassium 4.5 mmoL/L (3.5-5.1)
[2025-01-13 16:52] LABS: Blood Urea Nitrogen 11 mg/dl (7-17); Creatinine,Serum 0.80 mg/dl (0.52-1.04); Estimated Glomerular Filt Rate 77 ml/min (>60); GFR (African American) 93 ML/MIN (>60)
[2025-01-13 16:53] LABS: Calcium 8.7 mg/dl (8.4-10.2); Carbon Dioxide 28 mmol/L (22.0-30.0); Glucose 92 mg/dl (74-100); Magnesium 2.0 mg/dl (1.6-2.3)
[2025-01-13 16:58] LABS: NT Pro Brain Natriuretic Pep. 96.0 pg/mL (0-125)
[2025-01-13 17:11] LABS: Anion Gap 10.5 mEq/L (5-15); Sodium 138 mmol/L (136-145)
--- OUTSIDE RECORDS SUMMARY | 2025-01-15 09:34 | XMS_ITS | Encounter Summary ---
Author [place] [address] Care Team Providers Care Bead Cutter Name Role Phone Jono Garcia DO, Viral Primary Care Provider [phone] SebastianSera crane DPM Unavailable Unav ailable Payton Deleon BS, COS Unavailable Unavail able Joelle Heard MD Unavailable [phone] LeifMichael ching DO Primary Care Provider [phone] Elizabeth Urena SIEVE MAKER Unavailable Unavail able Encounter Details Date Type Department Care Team (Late st Contact Info) Description 09/25/2014 Orders Only SEP [facility] [address] [phone] Enrico Fleming MD Social History [...] PM EDT) 09/25/2014 2:00 PM EDT Impressions [facility] - 09/25/2014 4:21 PM EDT [...] ORDERABLES Final R esult Performing Organization Address City/State/[facility] Co de Phone Number [facility] [address] [place] [address] documented in this encounter Visit Diagnoses Not on filedocumented in this encounter Additional Health Concerns Infection Onset Date Last Indicated Resolved Time R/O COVID-19 04/17/2021 04/17/2021 04/17/2021 10:1 4 PM EST R/O COVID-19 04/19/2021 04/19/2021 04/19/2021 6:41 AM EST documented as of this encounter Care Teams Bead Cutter Relationship Specialty Start Date End Date Jake De La Cruz DO [address] [place] [phone] PCP - General Family Medicine 04/09/14 02/18/21 Michael Yadav DO [address] [place] [phone] PCP - General Family Medicine 02/19/21 04/22/24 Sera Cortes DPM [address] [place] [phone] Auto Refinisher-Surgery, Foot & Ankle 04/28/15 Payton Deleon, BS, COS Case Ortho Rn 06/27/19 07/17/19 Joelle Heard MD [address] [place] [address] [place] [address] Medical Oncologist Internal Medicine-Hematology and Oncology 09/07/20 Elizabeth Urena, [place] Leisure Travel Agent 06/17/21 07/21/21 documented as of this encounter
--- OUTSIDE RECORDS SUMMARY | 2025-01-15 09:34 | XMS_ITS | Clinical Summary ---
Author Organization [facility] Address [address] [place] [address] Phone Care Team Providers Care Architectural Model Maker Name Role Phone Sera Cortes DPM Unavailable [...] bzo 02/06/15 uds 09/13/17 jose alejandro 11/24/17 [id number] Problem Noted Date Diagnosed Date Bronchitis 04/19/2021 [...] ; Surgeon: Juan R Cam MD; Location: [facility] OR; Service: General Medical History [...] Date Recorded PHQ-2 Total Score 0 09/07/2021 [facility] of Occupat ional Health - Occupational Stress [...] of 3 - 19+ 3-dose series) 1996 HPV/Pap Cotest 2007 Annual Wellness Exam [...] on patient's age to complete this topic Pneumococcal Vaccine 0-49 Aged Out No longer eligible based on patient's age to complete [...] AM EDT : Incomplete-need additional imaging evaluation ([id number]) ~ RECOMMENDATION: Ultrasound of the left breast. [...] PM EDT) 09/25/2014 2:00 PM EDT Impressions [facility] - 09/25/2014 4:21 [...] MD GI PROCEDURE ORDERABLES Final R esult [facility] [address] [place] [address] from Last 3 Months or Most Recently Relevant to Health Maintenance Insurance AETNA [facility] [place] [address] [facility] [address] [facility] [address] Advance Directives For more information, please contact: [phone] * Full Code (Latest Code Status on File) Date Activated Date Inactivated Comments 04/19/2021 3:01 PM 04/21/2021 6:14 PM * Full Code Date Activated Date Inactivated Comments 07/18/2014 10:39 AM 07/20/2014 4:40 PM Care Teams Architectural Model Maker Relationship Specialty Start Date End Date Sera Cortes DPM Exhaust And Muffler Repairer-Surgery, Foot & Ankle 04/28/15 Joelle Heard MD [address] [facility] [place] [address] Medical Oncologist Internal Medicine-Hematology and Oncology 09/07/20
== END 2025-01-13 23:59 | disposition home or self-care (01) ==
LOC: LAB.DROPOF 01-15 09:31
PROVIDERS: PCP Family Medicine; Visit Provider Family Medicine
DX: R60.0 Localized edema (principal)
CPT/HCPCS: 80048; 83735; 83880

== ENCOUNTER 2025-03-17 11:15 | Outpatient (CLI) | payer OTHER, SELFPAY ==
[2025-03-17 12:24] LABS: Alanine Aminotransferase 13 U/L (12-78); Albumin Level 3.7 g/dl (3.5-5.0); Alkaline Phosphatase 138 U/L (38-126); Anion Gap 11.2 mEq/L (5-15); Aspartate Amino Transferase 16 U/L (14-36); Bilirubin,Direct 0.2 mg/dl (0.0-0.4); Bilirubin,Indirect 0.2 mg/dL (0.0-0.9); Bilirubin,Total 0.4 mg/dl (0.2-1.3); Bilirubin,Unconjugated 0.2 mg/dL (0.0-1.1); Blood Urea Nitrogen 10 mg/dl (7-17); Calcium 9.2 mg/dl (8.4-10.2); Carbon Dioxide 28 mmol/L (22.0-30.0); Chloride 103 mmol/L (98-107); Cholesterol 157 mg/dl (140-200); Creatinine,Serum 0.80 mg/dl (0.52-1.04); Estimated Glomerular Filt Rate 77 ml/min (>60); GFR (African American) 93 ML/MIN (>60); Glucose 109 mg/dl (74-100); HDL Cholesterol 33 mg/dl (40-60); Magnesium 1.6 mg/dl (1.6-2.3); Potassium 4.2 mmoL/L (3.5-5.1); Sodium 138 mmol/L (136-145); Total Protein,Serum 6.0 g/dl (6.3-8.2); Triglycerides 141 mg/dl (30-150)
[2025-03-17 12:33] LABS: NT Pro Brain Natriuretic Pep. 186 pg/mL (0-125)
[2025-03-17 12:49] LABS: Vitamin B12 329 pg/mL (239-931)
== END 2025-03-17 23:59 | disposition home or self-care (01) ==
LOC: LAB 11:16
PROVIDERS: Physician Assistant; PCP Family Medicine; Visit Provider Nurse Practitioner Family
DX: Z01.818 Encounter for other preprocedural examination (principal); I25.10 Atherosclerotic heart disease of native coronary artery without angina pectoris; M79.601 Pain in right arm; M79.89 Other specified soft tissue disorders; R94.31 Abnormal electrocardiogram [ECG] [EKG]; E66.813 Obesity, class 3; F41.9 Anxiety disorder, unspecified; E78.49 Other hyperlipidemia; Z86.718 Personal history of other venous thrombosis and embolism; Z82.49 Family history of ischemic heart disease and other diseases of the circulatory system; Z68.43 Body mass index [BMI] 50.0-59.9, adult
CPT/HCPCS: 36415; 80048; 80061; 80076; 82607; 82652; 83735; 83880

== ENCOUNTER 2025-05-01 08:35 | Emergency (ER) | payer OTHER, SELFPAY ==
[2025-05-01 08:42] VITALS: BP 126/64; PULSE 77; RESP 20; TEMP 37; O2SAT 98; BMI 52.1
--- NOTE | 2025-05-01 08:46 | ED_ITS ---
Discharge Plan Disposition Patient Disposition: Home, Self-Care Prescriptions Prescriptions: No Action bumetanide 2 mg tablet 3 mg PO DAILY Qty: 45 5RF ipratropium-albuterol 0.5 mg-3 mg(2.5 mg base)/3 mL solution for nebulization 3 ml inhalation QID PRN (Reason: shortness of breath or wheezing) Qty: 90 0RF cholecalciferol (vitamin D3) 50 mcg (2,000 unit) capsule 50 mcg PO DAILY Qty: 90 1RF prazosin 1 mg capsule 1 mg PO HS Qty: 30 2RF atomoxetine 40 mg capsule 40 mg PO DAILY Qty: 30 2RF nystatin 100,000 unit/mL suspension 1 ml PO QID 10 Days Qty: 40 0RF Rx Instructions: swish and swallow cetirizine [All Day Allergy (cetirizine)] 10 mg tablet 10 mg PO DAILY Qty: 30 5RF nystatin 100,000 unit/gram cream 1 applic topical TID Qty: 30 3RF atorvastatin [Lipitor] 80 mg tablet 80 mg PO DAILY Qty: 30 2RF aspirin [Adult Low Dose Aspirin] 81 mg tablet,delayed release (DR/EC) 81 mg PO DAILY Qty: 30 5RF Zepbound 2.5 mg/0.5 mL pen injector 2.5 mg SQ WEEKLY 30 Days Qty: 2.5 0RF Rx Instructions: for 4 weeks Referrals Follow up/Referrals: Malcolm Alvarado DO [Staff Physician, Orthopedics] - See instructions Morirs Gallagher MD [Primary Care Provider, Family Practice] - See instructions Activity Restrictions/Add. Instructions Additional Instructions/Restrictions: You likely have a muscle strain in your left forearm. Use the sling for comfort while working but at home, you can take it off. You can continue to use the arm is much as tolerated. You can take Tylenol and ibuprofen to help with symptoms. I am giving you referral to Dr. Alvarado. If your symptoms do not improve over the next week, give their office a call to arrange follow-up. If you develop any new or worsening symptoms, or if you become concerned for your help for any reason, return to the emergency department for evaluation. Clinical Impressions Clinical Impression: Left forearm pain Print Language Print Language: Belarusian Discharge ED Provider: Mikal Levy General Adult [facility] General Chief complaint: Extremity Injury, Upper Stated complaint: L arm pain Time Seen by Provider: 05/01/25 08:40 History of Present Illness HPI narrative: Светлана De Jesus is a 49-year-old female who presents to the emergency department with complaints of left forearm pain. 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 She states that she continued to work but the following day she had more severe pain in this area and is having worsening pain with pronation of the forearm. She notes some swelling in the proximal forearm as well. She denies any numbness or tingling. Related Data Previous Rx's ?Medication ?Instructions ?Recorded ipratropium 0.5 mg-albuterol 3 mg 3 ml inhalation QID PRN shortness 09/05/24 (2.5 mg base)/3 mL nebulization of breath or wheezing #90 mL soln cholecalciferol (vitamin D3) 50 50 mcg PO DAILY #90 ca ps 11/04/24 mcg (2,000 unit) capsule bumetanide 2 mg tablet 3 mg (1.5 x 2 mg) PO DAILY # 45 tabs 02/20/25 prazosin 1 mg capsule 1 mg PO HS #30 caps 03/06/25 aspirin 81 mg tablet,delayed 81 mg PO DAILY #30 tabs 1 release (Adult Low Dose Aspirin) atorvastatin 80 mg tablet (Lipitor) 80 mg PO DAILY #30 tabs 03/17/25 cetirizine 10 mg tablet (All Day 10 mg PO DAILY #30 ta bs 04/03/25 Allergy (cetirizine)) nystatin 100,000 unit/gram topical 1 applic topical TI D #30 grams 04/03/25 cream nystatin 100,000 unit/mL oral 1 ml PO QID 10 days #40 mL 04/03/25 suspension atomoxetine 40 mg capsule 40 mg PO DAILY #30 caps 03/29 12/20 tirzepatide (weight loss) 2.5 2.5 mg (0.5 mL) SQ WEEKL Y 30 days 04/28/25 mg/0.5 mL subcutaneous pen #2.5 mL injector (Zepbound) Allergies Allergy/AdvReac Type Severity Reaction Status Date / Time nicotine Allergy Mild Rash Verified 04/14/25 08:26 [facility] Disclaimer: The information contained in this section may have been updated after the patient was seen, as this information can be updated by other users. Medical History Nocturnal hypoxemia Other forms of dyspnea Preop examination CAD (coronary artery disease) Obesity Pain and swelling of right upper extremity History of DVT (deep vein thrombosis) Body mass index (BMI) greater than 50 Cellulitis Abnormal electrocardiogram [ECG] [EKG] Chronic fatigue Screening for colon cancer Screening for cervical cancer Breast cancer screening by mammogram Peripheral edema Hyperlipidemia Tobacco use disorder Left knee pain Bipolar disorder Back pain Depression Anxiety Surgical History H/O cardiac catheterization November 2024, mild whc-aoaq-pzfoqtrd disease Hx of tonsillectomy Hx laparoscopic cholecystectomy H/O hernia repair x4 History of section x2 Family History Other Cancer Coronary artery disease Diabetes FHx: mental illness Heart attack Hyperlipidemia Hypertension Stroke Social History Smoking Status: Current every day smoker tobacco type: cigarettes packs per day: 2 second hand exposure: No alcohol intake: never substance use type: denies use current occupational status: employed Travel in the last 8 weeks?: None household members: children housing: apartment 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 current occupational exposures/hazards: No caffeine: Yes Have you lived/traveled outside US in past 30 days?: No Contact w/someone who lives/traveled outside US past 30 days?: No Exposure to someone with infectious disease in past 14 days?: No Do you have a fever (greater than 100.4 F or 38 C)?: No Have you tested positive for COVID-19?: No Exposed to someone with COVID-19 in past 14 days?: No Do you have a sore throat?: No Do you have a cough?: No Do you have any weakness?: No Do you have any diarrhea?: No Are you experiencing any unusual bleeding?: No Do you have any muscle aches/pain?: No Do you have any abdominal pain?: No Are you experiencing loss of taste or smell?: No Other Medical History Have you received the Flu Vaccine for this season: Yes Have you received the Pneumonia Vaccine: No ROS Obtained: Yes Systems reviewed as appropriate & no additional complaints except as documented Physical Exam General General appearance: alert and in no apparent distress Head Head exam: atraumatic Eye Eye exam: Present normal appearance ENT ENT exam: Present normal external ear exam Neck Neck exam: Present full ROM Chest Chest inspection: Present symmetric chest wall rise Respiratory Respiratory exam: Present normal lung sounds bilaterally; Absent respiratory distress Cardiovascular Cardiovascular exam: Present regular rate and normal rhythm Abdominal Exam Abdominal exam: Present soft; Absent tenderness or guarding Extremities Exam Extremities exam: Present normal inspection Expanded Upper Extremity Exam Left: Comment: LUE: Point tenderness over the proximal left lateral forearm with mild amount of swelling in this area. Worsening pain with pronation. Flexor and extension function 5 out of 5 at the elbow and wrist. Lumbricals intact. 2+ radial pulse. Back Exam Back exam: Present normal inspection Neurological Exam Neurological exam: Present alert and oriented X3 Psychiatric Psychiatric exam: Present normal affect Skin Skin exam: Present warm and dry Medical Decision Making Medical Records Screening: Per USPSTF and CDC recommendations, given the prevalence of disease in our region, it is our hospital?s policy to screen for HIV and viral Hepatitis for all patients aged 18 and over and those with ongoing risk factors. Mickey Inquiry Pt receiving controlled substance: No Vital Signs: 05/01/25 08:42 05/01/25 09:30 Temperature 98.6 F Temperature Source Oral Pulse Rate 74 Pulse Rate [Left Radial] 77 Respiratory Rate 20 Blood Pressure 117/72 Blood Pressure [Right Arm] 126/64 Blood Pressure Mean [Right Arm] 84 02 Sat by Pulse Oximetry 98 95 Oxygen Delivery Method Room Air Room Air Orders (Tests/Meds): ED MEDICATIONS Discontinued Medications Generic Name Dose Route Start Last Admin Trade Name Freq PRN Reason Stop Dose Admin Acetaminophen 1,000 mg 05/01/25 08:46 05/01/25 08:58 Acetaminophen 500mg Tab PO 05/01/25 08:47 1,000 mg ONCE ONE Administration Ibuprofen 600 mg 05/01/25 08:46 05/01/25 08:59 Ibuprofen 600 Mg Tablet PO 05/01/25 08:47 600 mg ONCE ONE Administration ORDERS Category Date Time Status Forearm XR left 2 views [XR forearm LT 2V] Stat Exams 05/01/25 08:46 Completed Medical Decision Narrative: Светлана De Jesus is a 49-year-old female who presents to the emergency department with complaints of left forearm pain. 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 She states that she continued to work but the following day she had more severe pain in this area and is having worsening pain with pronation of the forearm. She notes some swelling in the proximal forearm as well. She denies any numbness or tingling. On arrival, patient is hemodynamically stable, afebrile, breathing comfortably on room air in no distress. She has tenderness over the proximal left lateral forearm with some mild swelling in this area. She has pain with pronation. 5 out of 5 strength with flexion and extension at the elbow and wrist. Lumbricals intact. 2+ radial pulse. No sensory deficits. Differential diagnosis includes, but is not limited to: Strain of muscles of pronation (pronator teres, pronator quadratus, brachial radialis, etc.), fracture. Low concern for DVT at this time as patient's mechanism was more traumatic in nature. I do not feel that she has a biceps tendon rupture as flexor function at the elbow is intact there is no abnormalities of the biceps muscle itself. Will obtain forearm x-rays to rule out fracture. Will also administer oral Tylenol and ibuprofen for pain relief. X-ray imaging was interpreted by me personally. No acute fracture or dislocati on. See radiology report for details. On reassessment, patient is resting comfortably. She reports improvement with Tylenol and ibuprofen. Patient was offered a muscle laxer, however she declined at this time. I do feel that her symptomatology is most related to a muscle strain and should improve over time with conservative management, however will give referral to Dr. Alvarado if patient's symptoms do not improve over the next week. All questions were answered. She demonstrated understanding and was in agreement this plan. She was then discharged from the emergency department in stable condition peer Critical Care Critical Care Time Critical Care Time: No
--- NOTE | 2025-05-01 08:46 | XR_ITS ---
FINAL REPORT CLINICAL HISTORY: Pain, proximal left forearm FINDINGS: LEFT FOREARM Two views were obtained. There is no fracture or dislocation. The joint spaces appear normal. No soft tissue abnormality is identified. IMPRESSION: No acute process. Reviewed, Interpreted and Dictated by Aman Willett MD Transcribed by Elida Bridges Authenticated and [facility]
[2025-05-01] MEDS: ACETAMINOPHEN 500MG TAB 1000 MG PO (08:58)
[2025-05-01] MEDS: IBUPROFEN 600 MG TABLET PO (08:59)
--- OUTSIDE RECORDS SUMMARY | 2025-05-01 09:09 | XMS_ITS | Encounter Summary ---
Author Organization [place] [address] Care Team Providers Care Vacation Planner Name Role Phone Jono Garcia DO, Viral Primary Care Provider [phone] SebastianSera crane DPM Unavailable Unav ailable Payton Deleon BS, COS Unavailable Unavail able Joelle Heard MD Unavailable [phone] LeifMichael ching DO Primary Care Provider [phone] Elizabeth Urena SUBSCRIPTION CLERK Unavailable Unavail able Encounter Details Date Type Department Care Team (Late st Contact Info) Description 09/25/2014 Orders Only SEP Gastro [facility] [address] [facility] [address] [facility], [place] [id number] Enrico Fleming MD Social History Tobacco Use [...] PM EDT) 09/25/2014 2:00 PM EDT Impressions [facility] - 09/25/2014 4:21 PM EDT Polyp [...] [facility] Co de Phone Number [facility] [address] [place] [address] documented in this encounter Visit Diagnoses Not on filedocumented in this encounter Additional Health Concerns Infection Onset Date Last Indicated Resolved Time R/O COVID-19 04/17/2021 04/17/2021 04/17/2021 10:1 4 PM EST R/O COVID-19 04/19/2021 04/19/2021 04/19/2021 6:41 AM EST documented as of this encounter Care Teams Vacation Planner Relationship Specialty Start Date End Date Jake De La Cruz DO [address] [place] [phone] PCP - General Family Medicine 04/09/14 02/18/21 Michael Yadav DO [address] [place] [id number] PCP - General Family Medicine 02/19/21 04/22/24 Sera Cortes DPM [address] [place] [phone] Detective Investigator-Surgery, Foot & Ankle 04/28/15 Payton Deleon, BS, COS Case Life Consultant 06/27/19 07/17/19 Joelle Heard MD [address] [place] [address] [place] [address] Medical Oncologist Internal Medicine-Hematology and Oncology 09/07/20 Elizabeth Urena LCSW Dielectric Testing Machine Operator 06/17/21 07/21/21 documented as of this encounter
--- OUTSIDE RECORDS SUMMARY | 2025-05-01 09:09 | XMS_ITS | Clinical Summary ---
Author Organization [facility] Address [address] 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 Name Role Phone Sera Cortes DPM Unavailable [...] bzo 02/06/15 uds 09/13/17 jose alejandro 11/24/17 [id number] Problem Noted Date Diagnosed Date Bronchitis 04/19/2021 [...] Date Smoking Tobacco: Every Day Cigarettes 2 34.9 Started: 05/29/1990 Smokeless Tobacco: Never Tobacco Cessation:Ready [...] Date Recorded PHQ-2 Total Score 0 09/07/2021 [facility] of Occupat ional Health - Occupational Stress [...] on file Sexual Orientation Not on file Last Filed Vital Signs Vital Sign Reading [...] FIT 2022 Sigmoidoscopy 2022 Virtual Colonography 2022 Colon Cancer Screening 09/25/2024 Colonoscopy 09/25/2024 09/25/2014, 05/29 (Postponed) COVID-19 Vaccine ( season) 2025 05/07/2021, 04/09/2021 Influenza Vaccine (#1) 2025 , 02/10/2019, 01/22/2019, [...] AM EDT : Incomplete-need additional imaging evaluation ([id number]) ~ RECOMMENDATION: Ultrasound of the left breast. [...] PM EDT) 09/25/2014 2:00 PM EDT Impressions [facility] - 09/25/2014 4:21 PM [...] MD GI PROCEDURE ORDERABLES Final R esult [facility] [address] [place] [address] from Last 3 Months or Most Recently Relevant to Health Maintenance Insurance [employer] [facility] [place] [address] [facility] [address] [facility] [address] Advance Directives For more information, please contact: [phone] * Full Code (Latest Code Status on File) Date Activated Date Inactivated Comments 04/19/2021 3:01 PM 04/21/2021 6:14 PM * Full Code Date Activated Date Inactivated Comments 07/18/2014 10:39 AM 07/20/2014 4:40 PM Care Teams Ground Water Pump Installer Relationship Specialty Start Date End Date Sera Cortes DPM Oncology Account Specialist-Surgery, Foot & Ankle 04/28/15 Joelle Heard MD [address] [place] [address] Medical Oncologist Internal Medicine-Hematology and Oncology 09/07/20
[2025-05-01 09:30] VITALS: BP 117/72; PULSE 74; O2SAT 95
[2025-05-01 09:41] VITALS: BP 126/64; PULSE 77; RESP 20; TEMP 36.8; O2SAT 98
== END 2025-05-01 10:01 | disposition home or self-care (01) ==
PROVIDERS: Emergency Provider Student in an Organized Health Care Education/Training Program; PCP Family Medicine
DX: M79.632 Pain in left forearm (principal); X50.0XXA Overexertion from strenuous movement or load, initial encounter
CPT/HCPCS: 73090; 99283